=== PATIENT | female | born 1945 | race Caucasian/White ===

== ENCOUNTER 2019-09-18 08:12 | Inpatient (IN) | payer MEDICARE ==
[~2019-09-18] VITALS: Ht 152.4 cm; Wt 85.3 kg
[~2019-09-18 08:12] MED LIST: AMLO2.5T5 PO; FERR325T14 PO; LISI-334 PO; MELO15TA6 PO; METO100T7 PO; METO50TA6 PO; NAPR-677 PO; OXYC5TAB88 PO; WARF-78 PO
[2019-09-18] MEDS ORDERED: IV NORMAL SALINE 1000ML BAG 1,000 ML IV SCH (08:43)
[2019-09-18] MEDS ORDERED: fentaNYL PF VIAL 100 MCG/2 ML VIAL IV PRN (08:45)
[2019-09-18] MEDS ORDERED: ONDANSETRON PF 4 MG/2 ML VIAL. IV ONE ×2 (08:45→12:30)
--- NOTE | 2019-09-18 08:47 | PHYS DOC ---
Past Medical History Past Medical History: Hypertension Past Surgical History: Appendectomy, Knee Replacement Additional Past Surgical Histo: R knee replacement Alcohol Use: None Drug Use: None Adult General Chief Complaint Chief Complaint: ABDOMINAL PAIN HPI HPI Patient is a 74-year-old female who presents with complaint of upper abdominal pain that started last night. Patient states that she has had a few episodes of nausea with vomiting. She states the vomitus has been brown in color. She states that her last normal bowel movement was yesterday and states that she has been passing some gas during her pain. She rates the pain at an 8 out of 10. She states that the pain is worsened with movement and with palpation. She denies any diarrhea. She also denies any fever.[] Review of Systems Review of Systems Constitutional: Denies fever or chills [] Respiratory: Denies cough or shortness of breath [] Cardiovascular: No additional information not addressed in HPI [] GI: Complains of abdominal pain with nausea and vomiting. Denies diarrhea [] Integument: Denies rash or skin lesions [] Neurologic: Denies headache, focal weakness or sensory changes [] All other systems were reviewed and found to be within normal limits, except as documented in this note. Current Medications Current Medications Current Medications Medications (Trade) Dose Ordered Sig/Patricio Start Time Stop Time Status Last Admin Dose Admin Fentanyl Citrate (Fentanyl 2ml Vial) 25 mcg PRN Q15MIN PRN 09/18/19 08:45 09/19/19 08:44 09/18/19 09:06 25 MCG Ondansetron HCl (Zofran) 4 mg 1X ONCE 09/18/19 12:30 09/18/19 12:35 DC 09/18/19 12:34 4 MG Sodium Chloride 1,000 ml @ 1,000 mls/hr Q1H 09/18/19 08:43 09/18/19 09:42 DC 09/18/19 09:05 1,000 MLS/HR Allergies Allergies Allergies Coded Allergies Type Severity Reaction Last Updated Verified nickel Allergy Intermediate REDNESS AND SWELLING, METAL 12/15/14 Yes acetaminophen Adverse Reaction Intermediate NAUSEA AND VOMITING 12/15/14 Yes hydrocodone Adverse Reaction Intermediate NAUSEA AND VOMITING 12/15/14 Yes Physical Exam Physical Exam Constitutional: Well developed, well nourished, no acute distress, non-toxic appearance. [] HENT: Normocephalic, atraumatic, bilateral external ears normal, oropharynx moist, no oral exudates, nose normal. [] Eyes: PERRLA, EOMI, conjunctiva normal, no discharge. [] Neck: Normal range of motion, no tenderness, supple, no stridor. [] Cardiovascular: Regular rate and rhythm[] Lungs & Thorax: Bilateral breath sounds clear to auscultation [] Abdomen: Bowel sounds normal, soft, with moderate upper abdominal tenderness. [] Skin: Warm, dry, no erythema, no rash. [] Extremities: No tenderness, no cyanosis, no clubbing, ROM intact, no edema. [] Neurologic: Alert and oriented X 3, no focal deficits noted. [] Current Patient Data Vital Signs Vital Signs Date Time Temp Pulse Resp B/P (MAP) Pulse Ox O2 Delivery O2 Flow Rate FiO2 09/18/19 08:34 98.6 102 18 129/60 (83) 96 Room Air 98.6 Lab Values Laboratory Tests Test 09/18/19 08:29 09/18/19 09:20 Urine Collection Type Unknown Urine Color Yellow Urine Clarity Clear Urine pH 5.0 Urine Specific [place] 1.020 Urine Protein Trace mg/dL (NEG-TRACE) Urine Glucose (UA) 100 mg/dL (NEG) Urine Ketones (Stick) Trace mg/dL (NEG) Urine Blood Trace (NEG) Urine Nitrite Negative (NEG) Urine Bilirubin Negative (NEG) Urine Urobilinogen Dipstick 0.2 mg/dL (0.2 mg/dL) Urine Leukocyte Esterase Trace (NEG) Urine RBC 0 /HPF (0-2) Urine WBC 1-4 /HPF (0-4) Urine Squamous Epithelial Cells Few /LPF Urine Amorphous Sediment Present /HPF Urine Bacteria 0 /HPF (0-FEW) Urine Hyaline Casts Few /HPF Urine Mucus Mod /LPF White Blood Count 12.0 x10^3/uL (4.0-11.0) H Red Blood Count 4.19 x10^6/uL (3.50-5.40) Hemoglobin 12.4 g/dL (12.0-15.5) Hematocrit 37.8 % (36.0-47.0) Mean Corpuscular Volume 90 fL (79-100) Mean Corpuscular Hemoglobin 30 pg (25-35) Mean Corpuscular Hemoglobin Concent 33 g/dL (31-37) Red Cell Distribution Width 12.9 % (11.5-14.5) Platelet Count 452 x10^3/uL (140-400) H Neutrophils (%) (Auto) 90 % (31-73) H Lymphocytes (%) (Auto) 5 % (24-48) L Monocytes (%) (Auto) 4 % (0-9) Eosinophils (%) (Auto) 0 % (0-3) Basophils (%) (Auto) 0 % (0-3) Neutrophils # (Auto) 10.8 x10^3/uL (1.8-7.7) H Lymphocytes # (Auto) 0.6 x10^3/uL (1.0-4.8) L Monocytes # (Auto) 0.5 x10^3/uL (0.0-1.1) Eosinophils # (Auto) 0.0 x10^3/uL (0.0-0.7) Basophils # (Auto) 0.0 x10^3/uL (0.0-0.2) Segmented Neutrophils % 90 % (35-66) H Band Neutrophils % 1 % (0-9) Lymphocytes % 6 % (24-48) L Monocytes % 3 % (0-10) Platelet Estimate Adequate (ADEQUATE) Sodium Level 147 mmol/L (136-145) H Potassium Level 4.5 mmol/L (3.5-5.1) Chloride Level 107 mmol/L (98-107) Carbon Dioxide Level 31 mmol/L (21-32) Anion Gap 9 (6-14) Blood Urea Nitrogen 47 mg/dL (7-20) H Creatinine 1.6 mg/dL (0.6-1.0) H Estimated GFR (Cockcroft-Gault) 31.6 BUN/Creatinine Ratio 29 (6-20) H Glucose Level 180 mg/dL (70-99) H Calcium Level 9.4 mg/dL (8.5-10.1) Total Bilirubin 1.0 mg/dL (0.2-1.0) Aspartate Amino Transferase (AST) 656 U/L (15-37) H Alanine Aminotransferase (ALT) 323 U/L (14-59) H Alkaline Phosphatase 209 U/L (46-116) H Troponin I Quantitative < 0.017 ng/mL (0.000-0.055) Total Protein 4.5 g/dL (6.4-8.2) L Albumin 3.3 g/dL (3.4-5.0) L Albumin/Globulin Ratio 2.8 (1.0-1.7) H Lipase 473 U/L (73-393) H Laboratory Tests 09/18/19 09:20 Laboratory Tests 09/18/19 09:20 EKG EKG [] Radiology/Procedures Radiology/Procedures [] Impressions: PROCEDURE: CT ABDOMEN PELVIS WO CONTRAST CT ABDOMEN PELVIS WO CONTRAST INDICATION: Abdominal pain EXAM: Noncontrast CT of the abdomen and pelvis. Coronal and sagittal reformatted images were performed. PQRS compliance statement: One or more of the following individualized dose reduction techniques were utilized for this examination: 1. Automated exposure control 2. Adjustment of the mA and/or kV according to patient size 3. Use of iterative reconstruction technique COMPARISON: None FINDINGS: No free air or fluid collection. Mild nonspecific central mesenteric haziness. Lower chest: The visualized lower lungs are aerated. No pleural or pericardial effusion. ABDOMEN: Liver: The noncontrast liver is homogeneous in attenuation. Gallbladder and biliary: Normal gallbladder without radiopaque stone. Normal caliber bile ducts. Spleen: Normal spleen. Pancreas: The noncontrast pancreas is homogeneous in attenuation without peripancreatic inflammatory changes. Adrenal glands: Normal adrenal glands. Kidneys and ureters: Nonobstructive left renal calculus measuring 4 mm. No hydronephrosis GI tract: Moderate-sized hiatal hernia. Normal caliber small bowel and colon. Mild colonic diverticulosis. Normal appendix. Vascular structures: Mild aortoiliac atherosclerotic disease. Lymph nodes: No lymphadenopathy in the abdomen or pelvis. PELVIS: Genitourinary system: Normal bladder. Uterus is present. SKELETAL STRUCTURES AND SOFT TISSUES: Multilevel degenerative changes of the spine. Right convex lumbar curvature IMPRESSION: 1. No acute abdominal process. 2. Nonobstructive left renal calculus measuring 4 mm. 3. Colonic diverticulosis without evidence of acute diverticulitis. 4. Moderate-sized hiatal hernia. Electronically signed by: Loren Harris MD (09/18/2019 10:44 AM) [facility] DICTATED and SIGNED BY: LOREN HARRIS MD DATE: 09/18/19 1044 Course & Med Decision Making Course & Med Decision Making Pertinent Labs and Imaging studies reviewed. (See chart for details) [] Dragon Disclaimer Dragon Disclaimer This electronic medical record was generated, in whole or in part, using a voice recognition dictation system. Departure Departure Impression: Primary Impression: Acute hepatitis Additional Impressions: Acute kidney injury Dehydration Disposition: ADMITTED INPATIENT Admitting Physician: LIZET (Dr. Tovar) Condition: IMPROVED Referrals: JORDYN JONES Jr, MD (PCP) Problem Qualifiers DONNELL GONZALES Jr. DO Sep 18, 2019 08:46
[2019-09-18 09:41] LABS: BASO % 0 % (0-3); EOS % 0 % (0-3); HEMATOCRIT 37.8 % (36.0-47.0); HEMOGLOBIN 12.4 g/dL (12.0-15.5); LYMPH # 0.6 x10^3/uL (1.0-4.8); LYMPH % 5 % (24-48); MEAN CORPUSCULAR HEMOGLOBIN 30 pg (25-35); MEAN CORPUSCULAR HGB CONC 33 g/dL (31-37); MEAN CORPUSCULAR VOLUME 90 fL (79-100); MONO # 0.5 x10^3/uL (0.0-1.1); MONO % 4 % (0-9); NEUT # 10.8 x10^3/uL (1.8-7.7); NEUT % 90 % (31-73); PLATELET COUNT 452 x10^3/uL (140-400); RED BLOOD COUNT 4.19 x10^6/uL (3.50-5.40); RED CELL DISTRIBUTION WIDTH 12.9 % (11.5-14.5)
[2019-09-18 09:48] LABS: BILIRUBIN,URINE NEGATIVE (NEG); CLARITY,URINE CLEAR; COLOR,URINE YELLOW
[2019-09-18 09:49] LABS: AMORPHOUS SEDIMENT,UR PRESENT /HPF; BACTERIA,URINE 0 /HPF (0-FEW); HYALINE CASTS, URINE FEW /HPF; NITRITE,URINE NEGATIVE (NEG); PROTEIN,URINE TRACE mg/dL (NEG-TRACE); RBC,URINE 0 /HPF (0-2); SQUAMOUS EPITHELIAL CELL,UR FEW /LPF; UROBILINOGEN,URINE 0.2 mg/dL (0.2 mg/dL)
[2019-09-18 09:50] LABS: CALCIUM 9.4 mg/dL (8.5-10.1); CREATININE 1.6 mg/dL (0.6-1.0); GFR 31.6; POTASSIUM 4.5 mmol/L (3.5-5.1)
[2019-09-18 09:54] LABS: ALBUMIN 3.3 g/dL (3.4-5.0); ALBUMIN/GLOBULIN RATIO 2.8 (1.0-1.7); TOTAL PROTEIN 4.5 g/dL (6.4-8.2)
--- NOTE | 2019-09-18 10:48 | RAD ---
CT ABDOMEN PELVIS WO CONTRAST INDICATION: Abdominal pain EXAM: Noncontrast CT of the abdomen and pelvis. Coronal and sagittal reformatted images were performed. PQRS compliance statement: One or more of the following individualized dose reduction techniques were utilized for this examination: 1. Automated exposure control 2. Adjustment of the mA and/or kV according to patient size 3. Use of iterative reconstruction technique COMPARISON: None FINDINGS: No free air or fluid collection. Mild nonspecific central mesenteric haziness. Lower chest: The visualized lower lungs are aerated. No pleural or pericardial effusion. ABDOMEN: Liver: The noncontrast liver is homogeneous in attenuation. Gallbladder and biliary: Normal gallbladder without radiopaque stone. Normal caliber bile ducts. Spleen: Normal spleen. Pancreas: The noncontrast pancreas is homogeneous in attenuation without peripancreatic inflammatory changes. Adrenal glands: Normal adrenal glands. Kidneys and ureters: Nonobstructive left renal calculus measuring 4 mm. No hydronephrosis GI tract: Moderate-sized hiatal hernia. Normal caliber small bowel and colon. Mild colonic diverticulosis. Normal appendix. Vascular structures: Mild aortoiliac atherosclerotic disease. Lymph nodes: No lymphadenopathy in the abdomen or pelvis. PELVIS: Genitourinary system: Normal bladder. Uterus is present. SKELETAL STRUCTURES AND SOFT TISSUES: Multilevel degenerative changes of the spine. Right convex lumbar curvature IMPRESSION: 1. No acute abdominal process. 2. Nonobstructive left renal calculus measuring 4 mm. 3. Colonic diverticulosis without evidence of acute diverticulitis. 4. Moderate-sized hiatal hernia. Electronically signed by: Juan Harris MD (09/18/2019 10:44 AM) [facility]
[2019-09-18 11:35] LABS: % BANDS 1 % (0-9); % LYMPHS 6 % (24-48); % MONOS 3 % (0-10); % SEGS 90 % (35-66); PLT ESTIMATE ADEQUATE (ADEQUATE)
--- NOTE | 2019-09-18 11:49 | PDOC1 ---
History and Physical Date of Admission Date of Admission DATE: 09/18/19 TIME: 11:49 Identification/Chief Complaint Chief Complaint Abdominal pain Source Source: Patient History of Present Illness History of Present Illness Ms Zapata is a 74-year-old female with PMHx HTN who presents with complaint of upper mid-epigastric abdominal pain that started last night. Patient states that she has had a few episodes of nausea with vomiting. She had eaten a cheeseburger at a local casino prior to this episode and has been having this issue with abdominal pain for the past 5 days which has progressed and now is constant. 2 weeks ago she had similar pain and nausea, relegated to her left upper quadrant that she compared to morning sickness. She was seen in urgent care at that time and given a PPI and antiemetic and improved until 5 days ago. No recent travel or sick contacts, no well water exposure. No diarrhea. She states that her last normal bowel movement was yesterday and states that she has been passing some gas during her pain. She rates the pain at an 8 out of 10. She states that the pain is worsened with movement and with palpation. She also denies any fever. In ED found with WBC of 12, BUN 47, Cr 1.6, Lipase 473, AST 656, ALT 323. Bilirubin 1. CT abdomen pelvis performed without contrast showing non- obstructive left renal calculus, diverticulosis, otherwise no acute process. She is UTD on colonoscopy screening. Admitted for further workup and treatment. Past Medical History Cardiovascular: HTN Past Surgical History Past Surgical History: Appendectomy, Total knee replacement (L) Family History Family History: High Cholestrol, Hypertension Social History Smoke: No ALCOHOL: none Drugs: None Current Problem List Problem List Problems Medical Problems: (1) Acute hepatitis Status: Acute Current Medications Current Medications Current Medications Fentanyl Citrate (Fentanyl 2ml Vial) 25 mcg PRN Q15MIN PRN IV PAIN GREATER THAN 3/10 Last administered on 09/18/19at 09:06; Start 09/18/19 at 08:45; Stop 09/19/19 at 08:44 Sodium Chloride 1,000 ml @ 1,000 mls/hr Q1H IV Last administered on 09/18/19at 09:05; Start 09/18/19 at 08:43; Stop 09/18/19 at 09:42; Status DC Ondansetron HCl (Zofran) 4 mg 1X ONCE IV Last administered on 09/18/19at 09:06; Start 09/18/19 at 08:45; Stop 09/18/19 at 08:46; Status DC Active Scripts Active Reported Roxicodone (Oxycodone HCl) 5 Mg Tablet 5 Mg PO PRN Q4HRS PRN Last dose given: 1:20 p.m. Next dose due: 5:20 if needed for pain Mobic (Meloxicam) 15 Mg Tablet 15 Mg PO 1X Last dose given: 9:00 a.m. (celebrex) Next dose due: 12-19-14 Coumadin (Warfarin Sodium) 5 Mg Tablet 5 Mg PO 1X Last dose given: 1:20 p.m. Next dose due: tomorrow evening 12-19-14 Pharmacy will monitor coumadin dosing Amlodipine Besylate 2.5 Mg Tablet 2.5 Mg PO DAILY Last dose given: 9:00 a.m. Next dose due: 12-19-14 9:00 a.m. Lisinopril 20 Mg Tablet 40 Mg PO DAILY06 Last dose given: 9:00 a.m. Next dose due: 12-19-14 Metoprolol Tartrate 50 Mg Tablet 50 Mg PO BID Last dose given: 9:00 a.m. Next dose due: tonight Allergies Allergies: Coded Allergies: nickel (Verified Allergy, Intermediate, REDNESS AND SWELLING, METAL, 12/15/14) acetaminophen (Verified Adverse Reaction, Intermediate, NAUSEA AND VOMITING, 12/15/14) hydrocodone (Verified Adverse Reaction, Mild, NAUSEA AND VOMITING, 09/18/19) ROS General: YES: Fatigue, Malaise, Appetite; No: Chills, Night Sweats, Other PSYCHOLOGICAL ROS: No: Anxiety, Behavioral Disorder, Concentration difficultie, Decreased libido, Depression, Disorientation, Hallucinations, Hostility, Irritablity, Memory difficulties, Mood Swings, Obsessive thoughts, Physical abuse, Sexual abuse, Sleep disturbances, Suicidal ideation, Other Eyes: No Blurry vision, No Decreased vision, No Double vision, No Dry eyes, No Excessive tearing, No Eye Pain, No Itchy Eyes, No Loss of vision, No Photophobia, No Scotomata, No Uses contacts, No Uses glasses, No Other HEENT: No: Heacaches, Visual Changes, Hearing change, Nasal congestion, Nasal discharge, Oral lesions, Sinus pain, Sore Throat, Epistaxis, Sneezing, Snoring, Tinnitus, Vertigo, Vocal changes, Other ALLERGY AND IMMUNOLOGY: No: Hives, Insect Bite Sensitivity, Itchy/Watery Eyes, Nasal Congestion, Post Nasal Drip, Seasonal Allergies, Other Hematological and Lymphatic: No: Bleeding Problems, Blood Clots, Blood Transfusions, Brusing, Night Sweats, Pallor, Swollen Lymph Nodes, Other ENDOCRINE: No: Breast Changes, Galactorrhea, Hair Pattern Changes, Hot Flashes, Malaise/lethargy, Mood Swings, Palpitations, Polydipsia/polyuria, Skin Changes, Temperature Intolerance, Unexpected Weight Changes, Other Breast: No New/Changing Breast Lumps, No Nipple changes, No Nipple discharge, No Other Respiratory: No: Cough, Hemoptysis, Orthopnea, Pleuritic Pain, Shortness of breath, SOB with excertion, Sputum Changes, Stridor, Tachypnea, Wheezing, Other Cardiovascular: No Chest Pain, No Palpitations, No Orthopnea, No Paroxysmal Noc. Dyspnea, No Edema, No Lt Headedness, No Other Gastrointestinal: Yes Nausea, Yes Vomiting, Yes Abdominal Pain; No Diarrhea, No Constipation, No Melena, No Hematochezia, No Other Genitourinary: No Dysuria, No Frequency, No Incontinence, No Hematuria, No Retention, No Discharge, No Urgency, No Pain, No Flank Pain, No Other, No , No , No , No , No , No , No Musculoskeletal: No Gait Disturbance, No Joint Pain, No Joint Stiffness, No Joint Swelling, No Muscle Pain, No Muscular Weakness, No Pain In:, No Swelling In:, No Other Neurological: No Behavorial Changes, No Bowel/Bladder ControlChng, No Confusion, No Dizziness, No Gait Disturbance, No Headaches, No Impaired Coord/balance, No Memory Loss, No Numbness/Tingling, No Seizures, No Speech Problems, No Tremors, No Visual Changes, No Weakness, No Other Skin: No Dry Skin, No Eczema, No Hair Changes, No Lumps, No Mole Changes, No Mottling, No Nail Changes, No Pruritus, No Rash, No Skin Lesion Changes, No Other, No Acne Physical Exam General: Alert, Oriented X3, Cooperative, mild distress HEENT: Atraumatic, PERRLA, EOMI, Mucous membr. moist/pink Lungs: Clear to auscultation, Normal air movement Heart: S1S2, RRR, no thrills, no rubs Abdomen: Normal bowel sounds, Soft, No hepatosplenomegaly, No masses, Other (Epigastric and RUQ tenderness) Rectal Exam: not examined Extremities: No clubbing, No cyanosis, No edema, Normal pulses, No tenderness/swelling Skin: No rashes, No breakdown, No significant lesion Neuro: Normal gait, Normal speech, Strength at 5/5 X4 ext, Normal tone, Sensation intact, Cranial nerves 3-12 NL, Reflexes 2+ Psych/Mental Status: Mental status NL, Mood NL Vitals Vitals Vital Signs Date Time Temp Pulse Resp B/P (MAP) Pulse Ox O2 Delivery O2 Flow Rate FiO2 09/18/19 08:34 98.6 102 18 129/60 (83) 96 Room Air 98.6 Labs Labs Laboratory Tests Test 09/18/19 08:29 09/18/19 09:20 Urine Collection Type Unknown Urine Color Yellow Urine Clarity Clear Urine pH 5.0 Urine Specific [place] 1.020 Urine Protein Trace mg/dL (NEG-TRACE) Urine Glucose (UA) 100 mg/dL (NEG) Urine Ketones (Stick) Trace mg/dL (NEG) Urine Blood Trace (NEG) Urine Nitrite Negative (NEG) Urine Bilirubin Negative (NEG) Urine Urobilinogen Dipstick 0.2 mg/dL (0.2 mg/dL) Urine Leukocyte Esterase Trace (NEG) Urine RBC 0 /HPF (0-2) Urine WBC 1-4 /HPF (0-4) Urine Squamous Epithelial Cells Few /LPF Urine Amorphous Sediment Present /HPF Urine Bacteria 0 /HPF (0-FEW) Urine Hyaline Casts Few /HPF Urine Mucus Mod /LPF White Blood Count 12.0 x10^3/uL (4.0-11.0) Red Blood Count 4.19 x10^6/uL (3.50-5.40) Hemoglobin 12.4 g/dL (12.0-15.5) Hematocrit 37.8 % (36.0-47.0) Mean Corpuscular Volume 90 fL (79-100) Mean Corpuscular Hemoglobin 30 pg (25-35) Mean Corpuscular Hemoglobin Concent 33 g/dL (31-37) Red Cell Distribution Width 12.9 % (11.5-14.5) Platelet Count 452 x10^3/uL (140-400) Neutrophils (%) (Auto) 90 % (31-73) Lymphocytes (%) (Auto) 5 % (24-48) Monocytes (%) (Auto) 4 % (0-9) Eosinophils (%) (Auto) 0 % (0-3) Basophils (%) (Auto) 0 % (0-3) Neutrophils # (Auto) 10.8 x10^3/uL (1.8-7.7) Lymphocytes # (Auto) 0.6 x10^3/uL (1.0-4.8) Monocytes # (Auto) 0.5 x10^3/uL (0.0-1.1) Eosinophils # (Auto) 0.0 x10^3/uL (0.0-0.7) Basophils # (Auto) 0.0 x10^3/uL (0.0-0.2) Segmented Neutrophils % 90 % (35-66) Band Neutrophils % 1 % (0-9) Lymphocytes % 6 % (24-48) Monocytes % 3 % (0-10) Platelet Estimate Adequate (ADEQUATE) Sodium Level 147 mmol/L (136-145) Potassium Level 4.5 mmol/L (3.5-5.1) Chloride Level 107 mmol/L (98-107) Carbon Dioxide Level 31 mmol/L (21-32) Anion Gap 9 (6-14) Blood Urea Nitrogen 47 mg/dL (7-20) Creatinine 1.6 mg/dL (0.6-1.0) Estimated GFR (Cockcroft-Gault) 31.6 BUN/Creatinine Ratio 29 (6-20) Glucose Level 180 mg/dL (70-99) Calcium Level 9.4 mg/dL (8.5-10.1) Total Bilirubin 1.0 mg/dL (0.2-1.0) Aspartate Amino Transf (AST/SGOT) 656 U/L (15-37) Alanine Aminotransferase (ALT/SGPT) 323 U/L (14-59) Alkaline Phosphatase 209 U/L (46-116) Troponin I Quantitative < 0.017 ng/mL (0.000-0.055) Total Protein 4.5 g/dL (6.4-8.2) Albumin 3.3 g/dL (3.4-5.0) Albumin/Globulin Ratio 2.8 (1.0-1.7) Lipase 473 U/L (73-393) Laboratory Tests Test 09/18/19 08:29 09/18/19 09:20 Urine Collection Type Unknown Urine Color Yellow Urine Clarity Clear Urine pH 5.0 Urine Specific [place] 1.020 Urine Protein Trace mg/dL (NEG-TRACE) Urine Glucose (UA) 100 mg/dL (NEG) Urine Ketones (Stick) Trace mg/dL (NEG) Urine Blood Trace (NEG) Urine Nitrite Negative (NEG) Urine Bilirubin Negative (NEG) Urine Urobilinogen Dipstick 0.2 mg/dL (0.2 mg/dL) Urine Leukocyte Esterase Trace (NEG) Urine RBC 0 /HPF (0-2) Urine WBC 1-4 /HPF (0-4) Urine Squamous Epithelial Cells Few /LPF Urine Amorphous Sediment Present /HPF Urine Bacteria 0 /HPF (0-FEW) Urine Hyaline Casts Few /HPF Urine Mucus Mod /LPF White Blood Count 12.0 x10^3/uL (4.0-11.0) Red Blood Count 4.19 x10^6/uL (3.50-5.40) Hemoglobin 12.4 g/dL (12.0-15.5) Hematocrit 37.8 % (36.0-47.0) Mean Corpuscular Volume 90 fL (79-100) Mean Corpuscular Hemoglobin 30 pg (25-35) Mean Corpuscular Hemoglobin Concent 33 g/dL (31-37) Red Cell Distribution Width 12.9 % (11.5-14.5) Platelet Count 452 x10^3/uL (140-400) Neutrophils (%) (Auto) 90 % (31-73) Lymphocytes (%) (Auto) 5 % (24-48) Monocytes (%) (Auto) 4 % (0-9) Eosinophils (%) (Auto) 0 % (0-3) Basophils (%) (Auto) 0 % (0-3) Neutrophils # (Auto) 10.8 x10^3/uL (1.8-7.7) Lymphocytes # (Auto) 0.6 x10^3/uL (1.0-4.8) Monocytes # (Auto) 0.5 x10^3/uL (0.0-1.1) Eosinophils # (Auto) 0.0 x10^3/uL (0.0-0.7) Basophils # (Auto) 0.0 x10^3/uL (0.0-0.2) Segmented Neutrophils % 90 % (35-66) Band Neutrophils % 1 % (0-9) Lymphocytes % 6 % (24-48) Monocytes % 3 % (0-10) Platelet Estimate Adequate (ADEQUATE) Sodium Level 147 mmol/L (136-145) Potassium Level 4.5 mmol/L (3.5-5.1) Chloride Level 107 mmol/L (98-107) Carbon Dioxide Level 31 mmol/L (21-32) Anion Gap 9 (6-14) Blood Urea Nitrogen 47 mg/dL (7-20) Creatinine 1.6 mg/dL (0.6-1.0) Estimated GFR (Cockcroft-Gault) 31.6 BUN/Creatinine Ratio 29 (6-20) Glucose Level 180 mg/dL (70-99) Calcium Level 9.4 mg/dL (8.5-10.1) Total Bilirubin 1.0 mg/dL (0.2-1.0) Aspartate Amino Transf (AST/SGOT) 656 U/L (15-37) Alanine Aminotransferase (ALT/SGPT) 323 U/L (14-59) Alkaline Phosphatase 209 U/L (46-116) Troponin I Quantitative < 0.017 ng/mL (0.000-0.055) Total Protein 4.5 g/dL (6.4-8.2) Albumin 3.3 g/dL (3.4-5.0) Albumin/Globulin Ratio 2.8 (1.0-1.7) Lipase 473 U/L (73-393) Images Images CT abdomen/pelvis 1. No acute abdominal process. 2. Nonobstructive left renal calculus measuring 4 mm. 3. Colonic diverticulosis without evidence of acute diverticulitis. 4. Moderate-sized hiatal hernia. VTE Prophylaxis Ordered VTE Prophylaxis Devices: Yes VTE Pharmacological Prophylaxi: Yes Assessment/Plan Assessment/Plan A/P: Intractable abdominal pain - non-remitting, has acute hepatitis by labs. Not a significant alcohol drinking, no elevation in bilirubin, but alkaline phos is elevated. Will obtain RUQ to assess gallbladder and CBD Nausea and vomiting - possibly gastroenteritis, definitely with a mild pancreatitis and hepatitis of uncertain etiology. May be related to gallbladder, will give anti-emetics, pain control. Bowel rest. GI consult in AM NADIR - vasomotor nephropathy likely 2/2 vomiting and poor recent PO intake, will hydrate Hyperglycemia - likely reactive, will trend Acute transaminitis - as above, will check TSH, GABE, ASMA, consult GI. NPO, trend LFTs. RUQ imaging via US Leukocytosis - with tachycardia, she has SIRS, this is likely reactive given her recent vomiting, possibly also having a viral gastroenteritis, will trend. No indication for antibiotics at this point. Non-obstructive left nephrolithiasis - unlikely culprit given her current location of pain FEN - NPO PPX - Lovenox 30 mg FULL CODE Dispo - inpatient for N/V, likely 2 midnights. KSENIA CHU MD Sep 18, 2019 11:49
[2019-09-18] MEDS ORDERED: ONDANSETRON PF 4 MG/2 ML VIAL. IV PRN (13:00)
--- NOTE | 2019-09-18 14:00 | NUR ---
pt admitted to room 550. oriented to room and call light. sister at bedside.
[2019-09-18 15:00] VITALS: BP 157/70
[2019-09-18] MEDS: IV NORMAL SALINE 1000ML BAG 1,000 ML IV SCH ×2 (15:47→23:56)
[2019-09-18] MEDS: MORPHINE SULFATE 2 MG/ML VIAL. IV PRN ×2 (15:48→22:53)
[2019-09-18] MEDS ORDERED: HYDR12.58 PO (16:01)
[2019-09-18] MEDS ORDERED: ENOXAPARIN 30 MG/0.3 ML SYRINGE. SQ SCH (16:15)
[2019-09-18 19:00] VITALS: BP 157/76
--- NOTE | 2019-09-18 21:10 | RAD ---
Clinical History: Right upper quadrant pain Technique: Sonographic examination of the right upper quadrant of the abdomen was performed and multiple static images were obtained. Comparison: none Findings: The common bile duct is dilated to 1.2 cm and there are stones in the common bile duct. The intrahepatic biliary tree is dilated. The pancreas is not well seen due to overlying bowel gas. The gallbladder is seen with multiple stones in the gallbladder is distended however there is no wall thickening or surrounding fluid. The right kidney is seen without hydronephrosis and measures 9.2 cm in length. Impression: 1. Choledocholithiasis. Recommend ERCP. 2. Cholelithiasis without wall thickening or surrounding fluid or tenderness to suggest acute cholecystitis. Electronically signed by: Tej Mensah III, MD (09/18/2019 9:07 PM) [id number]
[2019-09-18] MEDS: METOPROLOL TART IMMED RELEASE 50 MG TABLET. PO SCH (22:52)
[2019-09-18] MEDS: ONDANSETRON PF 4 MG/2 ML VIAL. IV PRN (22:53)
[2019-09-18 23:00] VITALS: BP 155/75
[2019-09-19 03:00] VITALS: BP 174/77
[2019-09-19] MEDS: MORPHINE SULFATE 2 MG/ML VIAL. IV PRN ×2 (03:23→09:46)
[2019-09-19 04:59] LABS: BASO # 0.1 x10^3/uL (0.0-0.2); BASO % 1 % (0-3); EOS # 0.2 x10^3/uL (0.0-0.7); EOS % 1 % (0-3); HEMATOCRIT 38.2 % (36.0-47.0); HEMOGLOBIN 12.5 g/dL (12.0-15.5); LYMPH # 0.8 x10^3/uL (1.0-4.8); LYMPH % 7 % (24-48); MEAN CORPUSCULAR HEMOGLOBIN 30 pg (25-35); MEAN CORPUSCULAR HGB CONC 33 g/dL (31-37); MEAN CORPUSCULAR VOLUME 92 fL (79-100); MONO # 0.3 x10^3/uL (0.0-1.1); MONO % 2 % (0-9); NEUT # 10.8 x10^3/uL (1.8-7.7); NEUT % 90 % (31-73); PLATELET COUNT 377 x10^3/uL (140-400); RED BLOOD COUNT 4.17 x10^6/uL (3.50-5.40); RED CELL DISTRIBUTION WIDTH 13.2 % (11.5-14.5)
[2019-09-19] MEDS: ONDANSETRON PF 4 MG/2 ML VIAL. IV PRN (05:04)
[2019-09-19 05:31] LABS: ALBUMIN 2.9 g/dL (3.4-5.0); ALBUMIN/GLOBULIN RATIO 0.7 (1.0-1.7); CALCIUM 9.1 mg/dL (8.5-10.1); CREATININE 1.3 mg/dL (0.6-1.0); GFR 40.2; TOTAL PROTEIN 7.1 g/dL (6.4-8.2)
[2019-09-19 07:00] VITALS: BP 116/66
--- NOTE | 2019-09-19 07:19 | PDOC ---
PROGRESS NOTES Chief Complaint Chief Complaint A/P: Choledocholithiasis - with Intractable abdominal pain - non-remitting, has acute hepatitis by labs. Not a significant alcohol drinking, no elevation in bilirubi n, but alkaline phos is elevated. GI to see Nausea and vomiting - possibly gastroenteritis, definitely with a mild pancreatitis and hepatitis 2/2 choledocholithiasis. Will give anti-emetics, pain control. Bowel rest. GI consult to consider ERCP NADIR - vasomotor nephropathy likely 2/2 vomiting and poor recent PO intake, will hydrate Hyperglycemia - likely reactive, will trend Acute transaminitis - as above, consult GI. NPO, trend LFTs. RUQ imaging via US confirms choledocholithiasis Leukocytosis - with tachycardia, she has SIRS, this is likely reactive given her recent vomiting, possibly also having a viral gastroenteritis, will trend. Will initiate antibiotics when/if ERCP planned Non-obstructive left nephrolithiasis - unlikely culprit given her current locat ion of pain FEN - NPO PPX - Lovenox 30 mg FULL CODE Dispo - inpatient for N/V, likely 2 midnights. History of Present Illness History of Present Illness Ms Zapata is a 74-year-old female with PMHx HTN who presents with complaint of upper mid-epigastric abdominal pain that started last night. Patient states that she has had a few episodes of nausea with vomiting. She had eaten a cheeseburger at a local casino prior to this episode and has been having this issue with abdominal pain for the past 5 days which has progressed and now is constant. 2 weeks ago she had similar pain and nausea, relegated to her left upper quadrant that she compared to morning sickness. She was seen in urgent care at that time and given a PPI and antiemetic and improved until 5 days ago. No recent travel or sick contacts, no well water exposure. No diarrhea. She states that her last normal bowel movement was yesterday and states that she has been passing some gas during her pain. She rates the pain at an 8 out of 10. She states that the pain is worsened with movement and with palpation. She also denies any fever. In ED found with WBC of 12, BUN 47, Cr 1.6, Lipase 473, AST 656, ALT 323. Bilirubin 1. CT abdomen pelvis performed without contrast showing non- obstructive left renal calculus, diverticulosis, otherwise no acute process. She is UTD on colonoscopy screening. RUQ US reveals choledocholithiasis with CBD 1.2cm and multiple stones. LFTs elevating today. A little jaundiced. still with abdominal pain, nausea and vomiting. Plan for ERCP d/w GI today. NPO Vitals Vitals Vital Signs Date Time Temp Pulse Resp B/P (MAP) Pulse Ox O2 Delivery O2 Flow Rate FiO2 09/19/19 03:00 98.0 69 20 174/77 (109) 93 Room Air 98.0 Physical Exam General: Alert, Oriented X3, Cooperative, mild distress Heart: Regular rate, Normal S1, Normal S2 Lungs: Clear Abdomen: Normal bowel sounds, Soft, No hepatosplenomegaly, No masses, Other (Epigastric and RUQ tenderness) Extremities: No clubbing, No cyanosis, No edema, Normal pulses, No tenderness/swelling Skin: No rashes, No breakdown, No significant lesion Labs LABS Laboratory Tests Test 09/18/19 08:29 09/18/19 09:20 09/19/19 04:30 Urine Collection Type Unknown Urine Color Yellow Urine Clarity Clear Urine pH 5.0 Urine Specific [place] 1.020 Urine Protein Trace mg/dL (NEG-TRACE) Urine Glucose (UA) 100 mg/dL (NEG) Urine Ketones (Stick) Trace mg/dL (NEG) Urine Blood Trace (NEG) Urine Nitrite Negative (NEG) Urine Bilirubin Negative (NEG) Urine Urobilinogen Dipstick 0.2 mg/dL (0.2 mg/dL) Urine Leukocyte Esterase Trace (NEG) Urine RBC 0 /HPF (0-2) Urine WBC 1-4 /HPF (0-4) Urine Squamous Epithelial Cells Few /LPF Urine Amorphous Sediment Present /HPF Urine Bacteria 0 /HPF (0-FEW) Urine Hyaline Casts Few /HPF Urine Mucus Mod /LPF White Blood Count 12.0 x10^3/uL (4.0-11.0) 12.0 x10^3/uL (4.0-11.0) Red Blood Count 4.19 x10^6/uL (3.50-5.40) 4.17 x10^6/uL (3.50-5.40) Hemoglobin 12.4 g/dL (12.0-15.5) 12.5 g/dL (12.0-15.5) Hematocrit 37.8 % (36.0-47.0) 38.2 % (36.0-47.0) Mean Corpuscular Volume 90 fL (79-100) 92 fL (79-100) Mean Corpuscular Hemoglobin 30 pg (25-35) 30 pg (25-35) Mean Corpuscular Hemoglobin Concent 33 g/dL (31-37) 33 g/dL (31-37) Red Cell Distribution Width 12.9 % (11.5-14.5) 13.2 % (11.5-14.5) Platelet Count 452 x10^3/uL (140-400) 377 x10^3/uL (140-400) Neutrophils (%) (Auto) 90 % (31-73) 90 % (31-73) Lymphocytes (%) (Auto) 5 % (24-48) 7 % (24-48) Monocytes (%) (Auto) 4 % (0-9) 2 % (0-9) Eosinophils (%) (Auto) 0 % (0-3) 1 % (0-3) Basophils (%) (Auto) 0 % (0-3) 1 % (0-3) Neutrophils # (Auto) 10.8 x10^3/uL (1.8-7.7) 10.8 x10^3/uL (1.8-7.7) Lymphocytes # (Auto) 0.6 x10^3/uL (1.0-4.8) 0.8 x10^3/uL (1.0-4.8) Monocytes # (Auto) 0.5 x10^3/uL (0.0-1.1) 0.3 x10^3/uL (0.0-1.1) Eosinophils # (Auto) 0.0 x10^3/uL (0.0-0.7) 0.2 x10^3/uL (0.0-0.7) Basophils # (Auto) 0.0 x10^3/uL (0.0-0.2) 0.1 x10^3/uL (0.0-0.2) Segmented Neutrophils % 90 % (35-66) Band Neutrophils % 1 % (0-9) Lymphocytes % 6 % (24-48) Monocytes % 3 % (0-10) Platelet Estimate Adequate (ADEQUATE) Sodium Level 147 mmol/L (136-145) 145 mmol/L (136-145) Potassium Level 4.5 mmol/L (3.5-5.1) 4.0 mmol/L (3.5-5.1) Chloride Level 107 mmol/L (98-107) 108 mmol/L (98-107) Carbon Dioxide Level 31 mmol/L (21-32) 29 mmol/L (21-32) Anion Gap 9 (6-14) 8 (6-14) Blood Urea Nitrogen 47 mg/dL (7-20) 28 mg/dL (7-20) Creatinine 1.6 mg/dL (0.6-1.0) 1.3 mg/dL (0.6-1.0) Estimated GFR (Cockcroft-Gault) 31.6 40.2 BUN/Creatinine Ratio 29 (6-20) 22 (6-20) Glucose Level 180 mg/dL (70-99) 132 mg/dL (70-99) Calcium Level 9.4 mg/dL (8.5-10.1) 9.1 mg/dL (8.5-10.1) Ferritin 924 ng/mL (8-252) Total Bilirubin 1.0 mg/dL (0.2-1.0) 3.0 mg/dL (0.2-1.0) Aspartate Amino Transf (AST/SGOT) 656 U/L (15-37) 914 U/L (15-37) Alanine Aminotransferase (ALT/SGPT) 323 U/L (14-59) 701 U/L (14-59) Alkaline Phosphatase 209 U/L (46-116) 298 U/L (46-116) Troponin I Quantitative < 0.017 ng/mL (0.000-0.055) Total Protein 4.5 g/dL (6.4-8.2) 7.1 g/dL (6.4-8.2) Albumin 3.3 g/dL (3.4-5.0) 2.9 g/dL (3.4-5.0) Albumin/Globulin Ratio 2.8 (1.0-1.7) 0.7 (1.0-1.7) Lipase 473 U/L (73-393) 234 U/L (73-393) Thyroid Stimulating Hormone (TSH) 1.208 uIU/mL (0.358-3.74) Hepatitis A IgM Antibody Nonreactive (Nonreactive) Hepatitis B Surface Antigen Nonreactive (Nonreactive) Hepatitis B Core IgM Antibody Nonreactive (Nonreactive) Hepatitis C IgG Antibody Nonreactive (Nonreactive) Assessment and Plan Assessmemt and Plan Problems Medical Problems: (1) Acute hepatitis Status: Acute (2) Acute kidney injury Status: Acute (3) Dehydration Status: Acute Comment Review of Relevant I have reviewed the following items tatianna (where applicable) has been applied. Labs Laboratory Tests Test 09/18/19 08:29 09/18/19 09:20 09/19/19 04:30 Urine Collection Type Unknown Urine Color Yellow Urine Clarity Clear Urine pH 5.0 Urine Specific [place] 1.020 Urine Protein Trace mg/dL (NEG-TRACE) Urine Glucose (UA) 100 mg/dL (NEG) Urine Ketones (Stick) Trace mg/dL (NEG) Urine Blood Trace (NEG) Urine Nitrite Negative (NEG) Urine Bilirubin Negative (NEG) Urine Urobilinogen Dipstick 0.2 mg/dL (0.2 mg/dL) Urine Leukocyte Esterase Trace (NEG) Urine RBC 0 /HPF (0-2) Urine WBC 1-4 /HPF (0-4) Urine Squamous Epithelial Cells Few /LPF Urine Amorphous Sediment Present /HPF Urine Bacteria 0 /HPF (0-FEW) Urine Hyaline Casts Few /HPF Urine Mucus Mod /LPF White Blood Count 12.0 x10^3/uL (4.0-11.0) 12.0 x10^3/uL (4.0-11.0) Red Blood Count 4.19 x10^6/uL (3.50-5.40) 4.17 x10^6/uL (3.50-5.40) Hemoglobin 12.4 g/dL (12.0-15.5) 12.5 g/dL (12.0-15.5) Hematocrit 37.8 % (36.0-47.0) 38.2 % (36.0-47.0) Mean Corpuscular Volume 90 fL (79-100) 92 fL (79-100) Mean Corpuscular Hemoglobin 30 pg (25-35) 30 pg (25-35) Mean Corpuscular Hemoglobin Concent 33 g/dL (31-37) 33 g/dL (31-37) Red Cell Distribution Width 12.9 % (11.5-14.5) 13.2 % (11.5-14.5) Platelet Count 452 x10^3/uL (140-400) 377 x10^3/uL (140-400) Neutrophils (%) (Auto) 90 % (31-73) 90 % (31-73) Lymphocytes (%) (Auto) 5 % (24-48) 7 % (24-48) Monocytes (%) (Auto) 4 % (0-9) 2 % (0-9) Eosinophils (%) (Auto) 0 % (0-3) 1 % (0-3) Basophils (%) (Auto) 0 % (0-3) 1 % (0-3) Neutrophils # (Auto) 10.8 x10^3/uL (1.8-7.7) 10.8 x10^3/uL (1.8-7.7) Lymphocytes # (Auto) 0.6 x10^3/uL (1.0-4.8) 0.8 x10^3/uL (1.0-4.8) Monocytes # (Auto) 0.5 x10^3/uL (0.0-1.1) 0.3 x10^3/uL (0.0-1.1) Eosinophils # (Auto) 0.0 x10^3/uL (0.0-0.7) 0.2 x10^3/uL (0.0-0.7) Basophils # (Auto) 0.0 x10^3/uL (0.0-0.2) 0.1 x10^3/uL (0.0-0.2) Segmented Neutrophils % 90 % (35-66) Band Neutrophils % 1 % (0-9) Lymphocytes % 6 % (24-48) Monocytes % 3 % (0-10) Platelet Estimate Adequate (ADEQUATE) Sodium Level 147 mmol/L (136-145) 145 mmol/L (136-145) Potassium Level 4.5 mmol/L (3.5-5.1) 4.0 mmol/L (3.5-5.1) Chloride Level 107 mmol/L (98-107) 108 mmol/L (98-107) Carbon Dioxide Level 31 mmol/L (21-32) 29 mmol/L (21-32) Anion Gap 9 (6-14) 8 (6-14) Blood Urea Nitrogen 47 mg/dL (7-20) 28 mg/dL (7-20) Creatinine 1.6 mg/dL (0.6-1.0) 1.3 mg/dL (0.6-1.0) Estimated GFR (Cockcroft-Gault) 31.6 40.2 BUN/Creatinine Ratio 29 (6-20) 22 (6-20) Glucose Level 180 mg/dL (70-99) 132 mg/dL (70-99) Calcium Level 9.4 mg/dL (8.5-10.1) 9.1 mg/dL (8.5-10.1) Ferritin 924 ng/mL (8-252) Total Bilirubin 1.0 mg/dL (0.2-1.0) 3.0 mg/dL (0.2-1.0) Aspartate Amino Transf (AST/SGOT) 656 U/L (15-37) 914 U/L (15-37) Alanine Aminotransferase (ALT/SGPT) 323 U/L (14-59) 701 U/L (14-59) Alkaline Phosphatase 209 U/L (46-116) 298 U/L (46-116) Troponin I Quantitative < 0.017 ng/mL (0.000-0.055) Total Protein 4.5 g/dL (6.4-8.2) 7.1 g/dL (6.4-8.2) Albumin 3.3 g/dL (3.4-5.0) 2.9 g/dL (3.4-5.0) Albumin/Globulin Ratio 2.8 (1.0-1.7) 0.7 (1.0-1.7) Lipase 473 U/L (73-393) 234 U/L (73-393) Thyroid Stimulating Hormone (TSH) 1.208 uIU/mL (0.358-3.74) Hepatitis A IgM Antibody Nonreactive (Nonreactive) Hepatitis B Surface Antigen Nonreactive (Nonreactive) Hepatitis B Core IgM Antibody Nonreactive (Nonreactive) Hepatitis C IgG Antibody Nonreactive (Nonreactive) Laboratory Tests Test 09/18/19 08:29 09/18/19 09:20 09/19/19 04:30 Urine Collection Type Unknown Urine Color Yellow Urine Clarity Clear Urine pH 5.0 Urine Specific [place] 1.020 Urine Protein Trace mg/dL (NEG-TRACE) Urine Glucose (UA) 100 mg/dL (NEG) Urine Ketones (Stick) Trace mg/dL (NEG) Urine Blood Trace (NEG) Urine Nitrite Negative (NEG) Urine Bilirubin Negative (NEG) Urine Urobilinogen Dipstick 0.2 mg/dL (0.2 mg/dL) Urine Leukocyte Esterase Trace (NEG) Urine RBC 0 /HPF (0-2) Urine WBC 1-4 /HPF (0-4) Urine Squamous Epithelial Cells Few /LPF Urine Amorphous Sediment Present /HPF Urine Bacteria 0 /HPF (0-FEW) Urine Hyaline Casts Few /HPF Urine Mucus Mod /LPF White Blood Count 12.0 x10^3/uL (4.0-11.0) 12.0 x10^3/uL (4.0-11.0) Red Blood Count 4.19 x10^6/uL (3.50-5.40) 4.17 x10^6/uL (3.50-5.40) Hemoglobin 12.4 g/dL (12.0-15.5) 12.5 g/dL (12.0-15.5) Hematocrit 37.8 % (36.0-47.0) 38.2 % (36.0-47.0) Mean Corpuscular Volume 90 fL (79-100) 92 fL (79-100) Mean Corpuscular Hemoglobin 30 pg (25-35) 30 pg (25-35) Mean Corpuscular Hemoglobin Concent 33 g/dL (31-37) 33 g/dL (31-37) Red Cell Distribution Width 12.9 % (11.5-14.5) 13.2 % (11.5-14.5) Platelet Count 452 x10^3/uL (140-400) 377 x10^3/uL (140-400) Neutrophils (%) (Auto) 90 % (31-73) 90 % (31-73) Lymphocytes (%) (Auto) 5 % (24-48) 7 % (24-48) Monocytes (%) (Auto) 4 % (0-9) 2 % (0-9) Eosinophils (%) (Auto) 0 % (0-3) 1 % (0-3) Basophils (%) (Auto) 0 % (0-3) 1 % (0-3) Neutrophils # (Auto) 10.8 x10^3/uL (1.8-7.7) 10.8 x10^3/uL (1.8-7.7) Lymphocytes # (Auto) 0.6 x10^3/uL (1.0-4.8) 0.8 x10^3/uL (1.0-4.8) Monocytes # (Auto) 0.5 x10^3/uL (0.0-1.1) 0.3 x10^3/uL (0.0-1.1) Eosinophils # (Auto) 0.0 x10^3/uL (0.0-0.7) 0.2 x10^3/uL (0.0-0.7) Basophils # (Auto) 0.0 x10^3/uL (0.0-0.2) 0.1 x10^3/uL (0.0-0.2) Segmented Neutrophils % 90 % (35-66) Band Neutrophils % 1 % (0-9) Lymphocytes % 6 % (24-48) Monocytes % 3 % (0-10) Platelet Estimate Adequate (ADEQUATE) Sodium Level 147 mmol/L (136-145) 145 mmol/L (136-145) Potassium Level 4.5 mmol/L (3.5-5.1) 4.0 mmol/L (3.5-5.1) Chloride Level 107 mmol/L (98-107) 108 mmol/L (98-107) Carbon Dioxide Level 31 mmol/L (21-32) 29 mmol/L (21-32) Anion Gap 9 (6-14) 8 (6-14) Blood Urea Nitrogen 47 mg/dL (7-20) 28 mg/dL (7-20) Creatinine 1.6 mg/dL (0.6-1.0) 1.3 mg/dL (0.6-1.0) Estimated GFR (Cockcroft-Gault) 31.6 40.2 BUN/Creatinine Ratio 29 (6-20) 22 (6-20) Glucose Level 180 mg/dL (70-99) 132 mg/dL (70-99) Calcium Level 9.4 mg/dL (8.5-10.1) 9.1 mg/dL (8.5-10.1) Ferritin 924 ng/mL (8-252) Total Bilirubin 1.0 mg/dL (0.2-1.0) 3.0 mg/dL (0.2-1.0) Aspartate Amino Transf (AST/SGOT) 656 U/L (15-37) 914 U/L (15-37) Alanine Aminotransferase (ALT/SGPT) 323 U/L (14-59) 701 U/L (14-59) Alkaline Phosphatase 209 U/L (46-116) 298 U/L (46-116) Troponin I Quantitative < 0.017 ng/mL (0.000-0.055) Total Protein 4.5 g/dL (6.4-8.2) 7.1 g/dL (6.4-8.2) Albumin 3.3 g/dL (3.4-5.0) 2.9 g/dL (3.4-5.0) Albumin/Globulin Ratio 2.8 (1.0-1.7) 0.7 (1.0-1.7) Lipase 473 U/L (73-393) 234 U/L (73-393) Thyroid Stimulating Hormone (TSH) 1.208 uIU/mL (0.358-3.74) Hepatitis A IgM Antibody Nonreactive (Nonreactive) Hepatitis B Surface Antigen Nonreactive (Nonreactive) Hepatitis B Core IgM Antibody Nonreactive (Nonreactive) Hepatitis C IgG Antibody Nonreactive (Nonreactive) Medications Current Medications Fentanyl Citrate (Fentanyl 2ml Vial) 25 mcg PRN Q15MIN PRN IV PAIN GREATER THAN 3/10 Last administered on 09/18/19at 09:06; Start 09/18/19 at 08:45; Stop 09/18/19 at 15:21; Status DC Sodium Chloride 1,000 ml @ 1,000 mls/hr Q1H IV Last administered on 09/18/19at 09:05; Start 09/18/19 at 08:43; Stop 09/18/19 at 09:42; Status DC Ondansetron HCl (Zofran) 4 mg 1X ONCE IV Last administered on 09/18/19at 09:06; Start 09/18/19 at 08:45; Stop 09/18/19 at 08:46; Status DC Ondansetron HCl (Zofran) 4 mg 1X ONCE IV Last administered on 09/18/19at 12:34; Start 09/18/19 at 12:30; Stop 09/18/19 at 12:35; Status DC Ondansetron HCl (Zofran) 4 mg PRN Q8HRS PRN IV NAUSEA/VOMITING Last admin istered on 09/18/19at 15:48; Start 09/18/19 at 13:00; Stop 09/18/19 at 16:08; Status DC Sodium Chloride 1,000 ml @ 125 mls/hr Q8H IV Last administered on 09/18/19at 23:56; Start 09/18/19 at 12:47; Stop 09/19/19 at 12:46 Morphine Sulfate (Morphine Sulfate) 2 mg PRN Q4HRS PRN IV PAIN Last administered on 09/19/19at 03:23; Start 09/18/19 at 15:15 Ondansetron HCl (Zofran) 4 mg PRN Q6HRS PRN IV NAUSEA/VOMITING Last administered on 09/19/19at 05:04; Start 09/18/19 at 16:00 Metoprolol Tartrate (Lopressor) 50 mg BID PO Last administered on 09/18/19at 22:52; Start 09/18/19 at 21:00 Amlodipine Besylate (Norvasc) 2.5 mg DAILY PO ; Start 09/19/19 at 09:00 Enoxaparin Sodium (Lovenox 30mg Syringe) 30 mg Q24H SQ Last administered on 09/18/19at 16:38; Start 09/18/19 at 16:15 Active Scripts Active Reported Hydrochlorothiazide Tablet (Hydrochlorothiazide) 12.5 Mg Tablet 12.5 Mg PO DAILY Amlodipine Besylate 2.5 Mg Tablet 2.5 Mg PO DAILY Last dose given: 9:00 a.m. Next dose due: 12-19-14 9:00 a.m. Lisinopril 20 Mg Tablet 40 Mg PO DAILY06 Last dose given: 9:00 a.m. Next dose due: 12-19-14 Metoprolol Tartrate 50 Mg Tablet 50 Mg PO BID Last dose given: 9:00 a.m. Next dose due: tonight Vitals/I & O Vital Sign - Last 24 Hours 09/18/19 09/18/19 09/18/19 09/18/19 08:34 09:04 09:34 10:04 Temp 98.6 98.6 Pulse 102 84 92 74 Resp 18 16 18 18 B/P (MAP) 129/60 (83) 142/77 (98) 159/72 (101) 157/74 (101) Pulse Ox 96 94 97 95 O2 Delivery Room Air Room Air Room Air Room Air 09/18/19 09/18/19 09/18/19 09/18/19 12:32 14:04 15:00 17:01 Temp 98.0 98.0 Pulse 80 84 78 Resp 18 16 18 B/P (MAP) 186/83 (117) 170/76 (107) 157/70 (99) Pulse Ox 96 96 96 O2 Delivery Room Air Room Air Room Air Room Air 09/18/19 09/18/19 09/18/19 09/18/19 19:00 20:00 22:52 23:00 Temp 98.6 98.2 98.6 98.2 Pulse 78 83 83 Resp 20 20 B/P (MAP) 157/76 (103) 155/74 155/75 (101) Pulse Ox 95 94 O2 Delivery Room Air Room Air Room Air 09/19/19 03:00 Temp 98.0 98.0 Pulse 69 Resp 20 B/P (MAP) 174/77 (109) Pulse Ox 93 O2 Delivery Room Air Intake and Output 09/18/19 09/18/19 09/19/19 15:00 23:00 07:00 Intake Total 50 ml 0 ml Balance 50 ml 0 ml KSENIA CHU MD Sep 19, 2019 07:19
[2019-09-19] MEDS ORDERED: KETOROLAC 15 MG/ML VIAL. IVP ONE (08:30)
[2019-09-19] MEDS: METOPROLOL TART IMMED RELEASE 50 MG TABLET. PO SCH ×2 (09:00→20:27)
[2019-09-19] MEDS ORDERED: PROCHLORPERAZINE 10 MG/2 ML VIAL. IV PRN ×2 (10:15)
[2019-09-19 11:00] VITALS: BP 108/53
[2019-09-19] MEDS: IV RINGERS,LACTATED 1000ML 1,000 ML IV SCH (13:30)
[2019-09-19] MEDS ORDERED: LIDOCAINE 2% PF 5 ML VIAL. ONE (13:33)
[2019-09-19] MEDS ORDERED: PROPOFOL 20 ML IV ONE (13:33)
[2019-09-19] MEDS ORDERED: SUCCINYLCHOLINE 200 MG/10 ML VIAL. ONE (13:33)
[2019-09-19] MEDS ORDERED: DEXAMETHASONE SOD PHOS 4 MG/ML VIAL ONE (13:33)
[2019-09-19] MEDS ORDERED: ONDANSETRON PF 4 MG/2 ML VIAL. ONE (13:33)
[2019-09-19] MEDS ORDERED: SEVOFLURANE 61 TO 120 MINUTES. IH ONE (13:35)
[2019-09-19] MEDS ORDERED: IOHEXOL 300 MG/ML 100ML VIAL. ONE (14:41)
--- NOTE | 2019-09-19 14:56 | PDOC2 ---
CONSULT Date of Consult Date of Consult DATE: 09/19/19 TIME: 14:54 Reason for Consult Reason for Consult: Obstructive jaundice Past Medical History Cardiovascular: HTN Past Surgical History Past Surgical History: Appendectomy, Total knee replacement (L) Family History Family History: High Cholestrol, Hypertension Social History No ALCOHOL: none Drugs: None Current Problem List Problem List Problems Medical Problems: (1) Acute hepatitis Status: Acute (2) Acute kidney injury Status: Acute (3) Dehydration Status: Acute Current Medications Current Medications Current Medications Fentanyl Citrate (Fentanyl 2ml Vial) 25 mcg PRN Q15MIN PRN IV PAIN GREATER THAN 3/10 Last administered on 09/18/19 09:06; Start 09/18/19 at 08:45; Stop 09/18/19 at 15:21; Status DC Sodium Chloride 1,000 ml @ 1,000 mls/hr Q1H IV Last administered on 09/18/19at 09:05; Start 09/18/19 at 08:43; Stop 09/18/19 at 09:42; Status DC Ondansetron HCl (Zofran) 4 mg 1X ONCE IV Last administered on 09/18/19at 09:06; Start 09/18/19 at 08:45; Stop 09/18/19 at 08:46; Status DC Ondansetron HCl (Zofran) 4 mg 1X ONCE IV Last administered on 09/18/19at 12:34; Start 09/18/19 at 12:30; Stop 09/18/19 at 12:35; Status DC Ondansetron HCl (Zofran) 4 mg PRN Q8HRS PRN IV NAUSEA/VOMITING Last administered on 09/18/19at 15:48; Start 09/18/19 at 13:00; Stop 09/18/19 at 16:08; Status DC Sodium Chloride 1,000 ml @ 125 mls/hr Q8H IV Last administered on 09/18/19at 23:56; Start 09/18/19 at 12:47; Stop 09/19/19 at 12:46; Status DC Morphine Sulfate (Morphine Sulfate) 2 mg PRN Q4HRS PRN IV PAIN Last administered on 09/19/19at 09:46; Start 09/18/19 at 15:15 Ondansetron HCl (Zofran) 4 mg PRN Q6HRS PRN IV NAUSEA/VOMITING Last administered on 09/19/19at 05:04; Start 09/18/19 at 16:00 Metoprolol Tartrate (Lopressor) 50 mg BID PO Last administered on 09/18/19at 22:52; Start 09/18/19 at 21:00 Amlodipine Besylate (Norvasc) 2.5 mg DAILY PO ; Start 09/19/19 at 09:00 Enoxaparin Sodium (Lovenox 30mg Syringe) 30 mg Q24H SQ Last administered on 09/18/19at 16:38; Start 09/18/19 at 16:15 Ketorolac Tromethamine (Toradol 15mg Vial) 15 mg 1X ONCE IVP Last administered on 09/19/19at 09:45; Start 09/19/19 at 08:30; Stop 09/19/19 at 08:48; Status DC Prochlorperazine Edisylate (Compazine) 10 mg PRN Q6HRS PRN IV NAUSEA/VOMITING Last administered on 09/19/19at 10:18; Start 09/19/19 at 10:15 Prochlorperazine Edisylate (Compazine) 5 mg PRN Q6HRS PRN IV NAUSEA/VOMITING; Start 09/19/19 at 10:15 Ringer's Solution 1,000 ml @ 100 mls/hr Q10H IV ; Start 09/19/19 at 13:30 Propofol 20 ml @ As Directed STK-MED ONCE IV ; Start 09/19/19 at 13:33; Stop 09/19/19 at 13:34; Status DC Lidocaine HCl (Lidocaine Pf 2% Vial) 5 ml STK-MED ONCE .ROUTE ; Start 09/19/19 at 13:33; Stop 09/19/19 at 13:34; Status DC Ondansetron HCl (Zofran) 4 mg STK-MED ONCE .ROUTE ; Start 09/19/19 at 13:33; Stop 09/19/19 at 13:34; Status DC Dexamethasone Sodium Phosphate (Decadron) 4 mg STK-MED ONCE .ROUTE ; Start 09/19/19 at 13:33; Stop 09/19/19 at 13:34; Status DC Succinylcholine Chloride (Anectine) 200 mg STK-MED ONCE .ROUTE ; Start 09/19/19 at 13:33; Stop 09/19/19 at 13:34; Status DC Sevoflurane (Ultane) 60 ml STK-MED ONCE IH ; Start 09/19/19 at 13:35; Stop 09/19/19 at 13:35; Status DC Iohexol (Omnipaque 300 Mg/ml) 100 ml STK-MED ONCE .ROUTE ; Start 09/19/19 at 14:41; Stop 09/19/19 at 14:41; Status DC Active Scripts Active Reported Hydrochlorothiazide Tablet (Hydrochlorothiazide) 12.5 Mg Tablet 12.5 Mg PO DAILY Amlodipine Besylate 2.5 Mg Tablet 2.5 Mg PO DAILY Last dose given: 9:00 a.m. Next dose due: 12-19-14 9:00 a.m. Lisinopril 20 Mg Tablet 40 Mg PO DAILY06 Last dose given: 9:00 a.m. Next dose due: 12-19-14 Metoprolol Tartrate 50 Mg Tablet 50 Mg PO BID Last dose given: 9:00 a.m. Next dose due: tonight Allergies Allergies: Coded Allergies: nickel (Verified Allergy, Intermediate, REDNESS AND SWELLING, METAL, 12/15/14) acetaminophen (Verified Adverse Reaction, Intermediate, NAUSEA AND VOMITING, 12/15/14) hydrocodone (Verified Adverse Reaction, Mild, NAUSEA AND VOMITING, 09/18/19) Vitals VITALS Vital Signs Date Time Temp Pulse Resp B/P (MAP) Pulse Ox O2 Delivery O2 Flow Rate FiO2 09/19/19 13:17 97.4 70 18 94 97.4 09/19/19 13:15 Room Air 09/19/19 11:00 108/53 (71) Labs Labs Laboratory Tests Test 09/18/19 08:29 09/18/19 09:20 09/19/19 04:30 Urine Collection Type Unknown Urine Color Yellow Urine Clarity Clear Urine pH 5.0 Urine Specific [place] 1.020 Urine Protein Trace mg/dL (NEG-TRACE) Urine Glucose (UA) 100 mg/dL (NEG) Urine Ketones (Stick) Trace mg/dL (NEG) Urine Blood Trace (NEG) Urine Nitrite Negative (NEG) Urine Bilirubin Negative (NEG) Urine Urobilinogen Dipstick 0.2 mg/dL (0.2 mg/dL) Urine Leukocyte Esterase Trace (NEG) Urine RBC 0 /HPF (0-2) Urine WBC 1-4 /HPF (0-4) Urine Squamous Epithelial Cells Few /LPF Urine Amorphous Sediment Present /HPF Urine Bacteria 0 /HPF (0-FEW) Urine Hyaline Casts Few /HPF Urine Mucus Mod /LPF White Blood Count 12.0 x10^3/uL (4.0-11.0) 12.0 x10^3/uL (4.0-11.0) Red Blood Count 4.19 x10^6/uL (3.50-5.40) 4.17 x10^6/uL (3.50-5.40) Hemoglobin 12.4 g/dL (12.0-15.5) 12.5 g/dL (12.0-15.5) Hematocrit 37.8 % (36.0-47.0) 38.2 % (36.0-47.0) Mean Corpuscular Volume 90 fL (79-100) 92 fL (79-100) Mean Corpuscular Hemoglobin 30 pg (25-35) 30 pg (25-35) Mean Corpuscular Hemoglobin Concent 33 g/dL (31-37) 33 g/dL (31-37) Red Cell Distribution Width 12.9 % (11.5-14.5) 13.2 % (11.5-14.5) Platelet Count 452 x10^3/uL (140-400) 377 x10^3/uL (140-400) Neutrophils (%) (Auto) 90 % (31-73) 90 % (31-73) Lymphocytes (%) (Auto) 5 % (24-48) 7 % (24-48) Monocytes (%) (Auto) 4 % (0-9) 2 % (0-9) Eosinophils (%) (Auto) 0 % (0-3) 1 % (0-3) Basophils (%) (Auto) 0 % (0-3) 1 % (0-3) Neutrophils # (Auto) 10.8 x10^3/uL (1.8-7.7) 10.8 x10^3/uL (1.8-7.7) Lymphocytes # (Auto) 0.6 x10^3/uL (1.0-4.8) 0.8 x10^3/uL (1.0-4.8) Monocytes # (Auto) 0.5 x10^3/uL (0.0-1.1) 0.3 x10^3/uL (0.0-1.1) Eosinophils # (Auto) 0.0 x10^3/uL (0.0-0.7) 0.2 x10^3/uL (0.0-0.7) Basophils # (Auto) 0.0 x10^3/uL (0.0-0.2) 0.1 x10^3/uL (0.0-0.2) Segmented Neutrophils % 90 % (35-66) Band Neutrophils % 1 % (0-9) Lymphocytes % 6 % (24-48) Monocytes % 3 % (0-10) Platelet Estimate Adequate (ADEQUATE) Sodium Level 147 mmol/L (136-145) 145 mmol/L (136-145) Potassium Level 4.5 mmol/L (3.5-5.1) 4.0 mmol/L (3.5-5.1) Chloride Level 107 mmol/L (98-107) 108 mmol/L (98-107) Carbon Dioxide Level 31 mmol/L (21-32) 29 mmol/L (21-32) Anion Gap 9 (6-14) 8 (6-14) Blood Urea Nitrogen 47 mg/dL (7-20) 28 mg/dL (7-20) Creatinine 1.6 mg/dL (0.6-1.0) 1.3 mg/dL (0.6-1.0) Estimated GFR (Cockcroft-Gault) 31.6 40.2 BUN/Creatinine Ratio 29 (6-20) 22 (6-20) Glucose Level 180 mg/dL (70-99) 132 mg/dL (70-99) Calcium Level 9.4 mg/dL (8.5-10.1) 9.1 mg/dL (8.5-10.1) Ferritin 924 ng/mL (8-252) Total Bilirubin 1.0 mg/dL (0.2-1.0) 3.0 mg/dL (0.2-1.0) Aspartate Amino Transf (AST/SGOT) 656 U/L (15-37) 914 U/L (15-37) Alanine Aminotransferase (ALT/SGPT) 323 U/L (14-59) 701 U/L (14-59) Alkaline Phosphatase 209 U/L (46-116) 298 U/L (46-116) Troponin I Quantitative < 0.017 ng/mL (0.000-0.055) Total Protein 4.5 g/dL (6.4-8.2) 7.1 g/dL (6.4-8.2) Albumin 3.3 g/dL (3.4-5.0) 2.9 g/dL (3.4-5.0) Albumin/Globulin Ratio 2.8 (1.0-1.7) 0.7 (1.0-1.7) Lipase 473 U/L (73-393) 234 U/L (73-393) Thyroid Stimulating Hormone (TSH) 1.208 uIU/mL (0.358-3.74) Hepatitis A IgM Antibody Nonreactive (Nonreactive) Hepatitis B Surface Antigen Nonreactive (Nonreactive) Hepatitis B Core IgM Antibody Nonreactive (Nonreactive) Hepatitis C IgG Antibody Nonreactive (Nonreactive) Laboratory Tests Test 09/19/19 04:30 White Blood Count 12.0 x10^3/uL (4.0-11.0) Red Blood Count 4.17 x10^6/uL (3.50-5.40) Hemoglobin 12.5 g/dL (12.0-15.5) Hematocrit 38.2 % (36.0-47.0) Mean Corpuscular Volume 92 fL (79-100) Mean Corpuscular Hemoglobin 30 pg (25-35) Mean Corpuscular Hemoglobin Concent 33 g/dL (31-37) Red Cell Distribution Width 13.2 % (11.5-14.5) Platelet Count 377 x10^3/uL (140-400) Neutrophils (%) (Auto) 90 % (31-73) Lymphocytes (%) (Auto) 7 % (24-48) Monocytes (%) (Auto) 2 % (0-9) Eosinophils (%) (Auto) 1 % (0-3) Basophils (%) (Auto) 1 % (0-3) Neutrophils # (Auto) 10.8 x10^3/uL (1.8-7.7) Lymphocytes # (Auto) 0.8 x10^3/uL (1.0-4.8) Monocytes # (Auto) 0.3 x10^3/uL (0.0-1.1) Eosinophils # (Auto) 0.2 x10^3/uL (0.0-0.7) Basophils # (Auto) 0.1 x10^3/uL (0.0-0.2) Sodium Level 145 mmol/L (136-145) Potassium Level 4.0 mmol/L (3.5-5.1) Chloride Level 108 mmol/L (98-107) Carbon Dioxide Level 29 mmol/L (21-32) Anion Gap 8 (6-14) Blood Urea Nitrogen 28 mg/dL (7-20) Creatinine 1.3 mg/dL (0.6-1.0) Estimated GFR (Cockcroft-Gault) 40.2 BUN/Creatinine Ratio 22 (6-20) Glucose Level 132 mg/dL (70-99) Calcium Level 9.1 mg/dL (8.5-10.1) Total Bilirubin 3.0 mg/dL (0.2-1.0) Aspartate Amino Transf (AST/SGOT) 914 U/L (15-37) Alanine Aminotransferase (ALT/SGPT) 701 U/L (14-59) Alkaline Phosphatase 298 U/L (46-116) Total Protein 7.1 g/dL (6.4-8.2) Albumin 2.9 g/dL (3.4-5.0) Albumin/Globulin Ratio 0.7 (1.0-1.7) Lipase 234 U/L (73-393) Assessment/Plan Assessment/Plan Obstructive jaundice-with abnlk US, Choledocholithiasis most likely. Plan ERCP with sphincterotomy and stone extraction. Risks and benefits discussed with patient who is willing to proceed surgical consult for lap basil serial LFTs Full note dictated PETE DUNCAN MD Sep 19, 2019 14:56
[2019-09-19] MEDS ORDERED: IOHEXOL 300 MG/ML 50 ML VIAL. INT CAT ONE (15:25)
--- NOTE | 2019-09-19 15:46 | PDOC4 ---
Operative Note Operative Note ERCp with sphincterotomy/stone extractions Meds Propofol per anesthesia pre-op dx obstructive jaundice/abnl US choledocholithiasis post-op dx cholangitis s/p sphincterotomy and stone extractions Plan antibiotics serial labs surgical consult for lap basil later this hospital stay PETE DUNCAN MD Sep 19, 2019 15:46
--- NOTE | 2019-09-19 16:17 | RAD ---
Fluoroscopic x-rays ERCP Fluoroscopy time 3.3 minutes, 6 x-ray images HISTORY: Gallstones. FINDINGS: Images demonstrate the endoscope and catheterization and contrast injection of the bile ducts the scope obscures much of the common bile duct limiting assessment for strictures or calculi, the bile ducts appear dilated. Incomplete contrast density within the distal common bile duct on the earlier images versus faint filling defects from calculi are noted. IMPRESSION: See above. Electronically signed by: Mekhi Pepper MD (09/19/2019 4:15 PM) [facility]
--- NOTE | 2019-09-19 16:58 | CONS ---
DATE OF CONSULTATION: 09/19/2019 REASON FOR CONSULTATION: Obstructive jaundice. REFERRING PHYSICIAN: Dr. Semaj Tovar. HISTORY OF PRESENT ILLNESS: A 74-year-old female with past medical history significant for knee replacement, appendectomy and hypertension, is admitted with a 1 week history of intermittent right upper quadrant pain, which has progressively worsened. She subsequently has come to the hospital, had followup on her liver enzymes with a bilirubin up to 3 and ultrasound shows common duct stones. Consultation request for ERCP, sphincterotomy and stone extraction. The patient states that she is otherwise without additional complaints. PAST MEDICAL HISTORY: Status post appendectomy, knee replacement, hypertension. ALLERGIES: HYDROCODONE, NICKEL. MEDICATIONS: Presently include amlodipine, metoprolol, Lovenox. SOCIAL HISTORY: She is retired. Does not drink or smoke. FAMILY HISTORY: Noncontributory. REVIEW OF SYSTEMS: Per records. PHYSICAL EXAMINATION: GENERAL: Reveals a well-nourished, well-developed female who is jaundiced. VITAL SIGNS: Temperature 97.4, pulse 70, respiratory rate 18, blood pressure 108/53. HEENT: Normocephalic, atraumatic head. Pupils and extraocular muscles are not tested. Sclerae anicteric. NECK: Supple. LUNGS: Clear. CARDIOVASCULAR: Reveals S1, S2 without S3, S4 or appreciable murmur. ABDOMEN: Reveals a soft abdomen with epigastric right upper quadrant tenderness to deep palpation. EXTREMITIES: Reveals no cyanosis, clubbing or edema. LABORATORY STUDIES: Sodium 145, potassium 4.0, chloride 108, bicarbonate 29, BUN 20, creatinine 1.3, glucose 132, calcium 9.1, ferritin 924, total bilirubin 3.0, AST of 914, ALT of 701, alkaline phosphatase 298. Lipase of 234. Hemoglobin is 12.5, hematocrit 36.2, white count 12.0, platelet count is 377,000. IMPRESSION: Obstructive jaundice secondary to common duct stones. We will recommend ERCP, sphincterotomy, stone extraction. Risks and benefits of procedure including risk of hemorrhage and perforation during the operation as well as pancreatitis have been discussed. The patient is willing to proceed at this time. Surgical consultation for laparoscopic cholecystectomy would follow as well as serial labs and enzymes. PETE DUNCAN MD DR: FRANCY/kelle JOB#: [id number] / [id number] SEMAJ Arias MD
[2019-09-19] MEDS: ENOXAPARIN 40 MG/0.4 ML SYRINGE. SQ SCH (17:00)
[2019-09-19] MEDS: amLODIPine BESYLATE 5 MG TABLET PO SCH (17:10)
[2019-09-19] MEDS: IV NORMAL SALINE 1000ML BAG 1,000 ML IV SCH (17:11)
--- NOTE | 2019-09-19 17:32 | NUR ---
liliana held d/t possible basil tomorrow
[2019-09-19 19:00] VITALS: BP 130/65
[2019-09-19 23:01] VITALS: BP 111/57
[2019-09-20] MEDS: IV RINGERS,LACTATED 1000ML 1,000 ML IV SCH ×3 (00:15→21:03)
[2019-09-20] MEDS: MORPHINE SULFATE 2 MG/ML VIAL. IV PRN ×2 (00:17→06:26)
[2019-09-20 03:01] VITALS: BP 151/76
[2019-09-20 06:56] LABS: BASO % 0 % (0-3); EOS % 0 % (0-3); HEMATOCRIT 34.1 % (36.0-47.0); LYMPH # 1.4 x10^3/uL (1.0-4.8); LYMPH % 7 % (24-48); MEAN CORPUSCULAR HEMOGLOBIN 30 pg (25-35); MEAN CORPUSCULAR HGB CONC 32 g/dL (31-37); MEAN CORPUSCULAR VOLUME 93 fL (79-100); MONO # 0.9 x10^3/uL (0.0-1.1); MONO % 4 % (0-9); NEUT # 17.7 x10^3/uL (1.8-7.7); NEUT % 88 % (31-73); PLATELET COUNT 303 x10^3/uL (140-400); RED BLOOD COUNT 3.68 x10^6/uL (3.50-5.40); RED CELL DISTRIBUTION WIDTH 13.6 % (11.5-14.5); WHITE BLOOD COUNT 20.1 x10^3/uL (4.0-11.0)
[2019-09-20 07:00] VITALS: BP 152/68
[2019-09-20 07:30] LABS: ALBUMIN 2.6 g/dL (3.4-5.0); ALBUMIN/GLOBULIN RATIO 0.8 (1.0-1.7); CALCIUM 8.3 mg/dL (8.5-10.1); CREATININE 1.5 mg/dL (0.6-1.0); POTASSIUM 4.9 mmol/L (3.5-5.1); TOTAL BILIRUBIN 2.7 mg/dL (0.2-1.0); TOTAL PROTEIN 5.8 g/dL (6.4-8.2)
--- NOTE | 2019-09-20 08:16 | PDOC ---
PROGRESS NOTES Chief Complaint Chief Complaint A/P: Choledocholithiasis - with Intractable abdominal pain - non-remitting, has acute hepatitis by labs. S/p ERCP 09/19 Nausea and vomiting - possibly gastroenteritis, definitely with a mild pancreatitis and hepatitis 2/2 choledocholithiasis. Will give anti-emetics, pain control. Bowel rest. GI for ERCP NADIR - vasomotor nephropathy likely 2/2 vomiting and poor recent PO intake, will hydrate Hyperglycemia - likely reactive, will trend Acute transaminitis - as above, consult GI. NPO, trend LFTs. RUQ imaging via US confirms choledocholithiasis Leukocytosis - with tachycardia, she has SIRS, this is likely reactive given her recent vomiting, possibly also having a viral gastroenteritis, will trend. Will initiate antibiotics Non-obstructive left nephrolithiasis - unlikely culprit given her current lo cation of pain FEN - NPO PPX - Lovenox 30 mg FULL CODE Dispo - inpatient for N/V, likely 2 midnights. History of Present Illness History of Present Illness Ms Zapata is a 74-year-old female with PMHx HTN who presents with complaint of upper mid-epigastric abdominal pain that started night before Thanks[place]. Patient states that she has had a few episodes of nausea with vomiting. She had eaten a cheeseburger at a local casino prior to this episode and has been having this issue with abdominal pain for the past 5 days which has progressed and now is constant. 2 weeks ago she had similar pain and nausea, relegated to her left upper quadrant that she compared to morning sickness. She was seen in urgent care at that time and given a PPI and antiemetic and improved until 5 days ago. No recent travel or sick contacts, no well water exposure. No diarrhea. She states that her last normal bowel movement was yesterday and states that she has been passing some gas during her pain. She rates the pain at an 8 out of 10. She states that the pain is worsened with movement and with palpation. She also denies any fever. In ED found with WBC of 12, BUN 47, Cr 1.6, Lipase 473, AST 656, ALT 323. Bilirubin 1. CT abdomen pelvis performed without contrast showing non- obstructive left renal calculus, diverticulosis, otherwise no acute process. She is UTD on colonoscopy screening. 09/19: RUQ US reveals choledocholithiasis with CBD 1.2cm and multiple stones. LFTs elevating today. A little jaundiced. still with abdominal pain, nausea and vomiting. ERCP with stone extraction and sphincterotomy LFTs up, lipase WNL. WBC 20 today. On levaquin. Plan for surgical consultation. Her pain is not well controlled with morphine. Plan: Dilaudid 1mg Consult general surgery Vitals Vitals Vital Signs Date Time Temp Pulse Resp B/P (MAP) Pulse Ox O2 Delivery O2 Flow Rate FiO2 09/20/19 07:00 98.3 77 20 152/68 (96) 94 Room Air 98.3 Physical Exam General: Alert, Oriented X3, Cooperative, mild distress Heart: Regular rate, Normal S1, Normal S2 Lungs: Clear Abdomen: Normal bowel sounds, Soft, No hepatosplenomegaly, No masses, Other (Epigastric and RUQ tenderness) Extremities: No clubbing, No cyanosis, No edema, Normal pulses, No tenderness/swelling Skin: No rashes, No breakdown, No significant lesion Labs LABS Laboratory Tests Test 09/20/19 06:30 White Blood Count 20.1 x10^3/uL (4.0-11.0) Red Blood Count 3.68 x10^6/uL (3.50-5.40) Hemoglobin 11.0 g/dL (12.0-15.5) Hematocrit 34.1 % (36.0-47.0) Mean Corpuscular Volume 93 fL (79-100) Mean Corpuscular Hemoglobin 30 pg (25-35) Mean Corpuscular Hemoglobin Concent 32 g/dL (31-37) Red Cell Distribution Width 13.6 % (11.5-14.5) Platelet Count 303 x10^3/uL (140-400) Neutrophils (%) (Auto) 88 % (31-73) Lymphocytes (%) (Auto) 7 % (24-48) Monocytes (%) (Auto) 4 % (0-9) Eosinophils (%) (Auto) 0 % (0-3) Basophils (%) (Auto) 0 % (0-3) Neutrophils # (Auto) 17.7 x10^3/uL (1.8-7.7) Lymphocytes # (Auto) 1.4 x10^3/uL (1.0-4.8) Monocytes # (Auto) 0.9 x10^3/uL (0.0-1.1) Eosinophils # (Auto) 0.0 x10^3/uL (0.0-0.7) Basophils # (Auto) 0.0 x10^3/uL (0.0-0.2) Sodium Level 147 mmol/L (136-145) Potassium Level 4.9 mmol/L (3.5-5.1) Chloride Level 109 mmol/L (98-107) Carbon Dioxide Level 27 mmol/L (21-32) Anion Gap 11 (6-14) Blood Urea Nitrogen 34 mg/dL (7-20) Creatinine 1.5 mg/dL (0.6-1.0) Estimated GFR (Cockcroft-Gault) 34.0 BUN/Creatinine Ratio 23 (6-20) Glucose Level 109 mg/dL (70-99) Calcium Level 8.3 mg/dL (8.5-10.1) Total Bilirubin 2.7 mg/dL (0.2-1.0) Aspartate Amino Transf (AST/SGOT) 315 U/L (15-37) Alanine Aminotransferase (ALT/SGPT) 502 U/L (14-59) Alkaline Phosphatase 339 U/L (46-116) Total Protein 5.8 g/dL (6.4-8.2) Albumin 2.6 g/dL (3.4-5.0) Albumin/Globulin Ratio 0.8 (1.0-1.7) Amylase Level 66 U/L (25-115) Lipase 181 U/L (73-393) Assessment and Plan Assessmemt and Plan Problems Medical Problems: (1) Acute hepatitis Status: Acute (2) Acute kidney injury Status: Acute (3) Dehydration Status: Acute Comment Review of Relevant I have reviewed the following items tatianna (where applicable) has been applied. Labs Laboratory Tests Test 09/18/19 08:29 09/18/19 09:20 09/19/19 04:30 09/20/19 06:30 Urine Collection Type Unknown Urine Color Yellow Urine Clarity Clear Urine pH 5.0 Urine Specific Harvey 1.020 Urine Protein Trace mg/dL (NEG-TRACE) Urine Glucose (UA) 100 mg/dL (NEG) Urine Ketones (Stick) Trace mg/dL (NEG) Urine Blood Trace (NEG) Urine Nitrite Negative (NEG) Urine Bilirubin Negative (NEG) Urine Urobilinogen Dipstick 0.2 mg/dL (0.2 mg/dL) Urine Leukocyte Esterase Trace (NEG) Urine RBC 0 /HPF (0-2) Urine WBC 1-4 /HPF (0-4) Urine Squamous Epithelial Cells Few /LPF Urine Amorphous Sediment Present /HPF Urine Bacteria 0 /HPF (0-FEW) Urine Hyaline Casts Few /HPF Urine Mucus Mod /LPF White Blood Count 12.0 x10^3/uL (4.0-11.0) 12.0 x10^3/uL (4.0-11.0) 20.1 x10^3/uL (4.0-11.0) Red Blood Count 4.19 x10^6/uL (3.50-5.40) 4.17 x10^6/uL (3.50-5.40) 3.68 x10^6/uL (3.50-5.40) Hemoglobin 12.4 g/dL (12.0-15.5) 12.5 g/dL (12.0-15.5) 11.0 g/dL (12.0-15.5) Hematocrit 37.8 % (36.0-47.0) 38.2 % (36.0-47.0) 34.1 % (36.0-47.0) Mean Corpuscular Volume 90 fL (79-100) 92 fL (79-100) 93 fL (79-100) Mean Corpuscular Hemoglobin 30 pg (25-35) 30 pg (25-35) 30 pg (25-35) Mean Corpuscular Hemoglobin Concent 33 g/dL (31-37) 33 g/dL (31-37) 32 g/dL (31-37) Red Cell Distribution Width 12.9 % (11.5-14.5) 13.2 % (11.5-14.5) 13.6 % (11.5-14.5) Platelet Count 452 x10^3/uL (140-400) 377 x10^3/uL (140-400) 303 x10^3/uL (140-400) Neutrophils (%) (Auto) 90 % (31-73) 90 % (31-73) 88 % (31-73) Lymphocytes (%) (Auto) 5 % (24-48) 7 % (24-48) 7 % (24-48) Monocytes (%) (Auto) 4 % (0-9) 2 % (0-9) 4 % (0-9) Eosinophils (%) (Auto) 0 % (0-3) 1 % (0-3) 0 % (0-3) Basophils (%) (Auto) 0 % (0-3) 1 % (0-3) 0 % (0-3) Neutrophils # (Auto) 10.8 x10^3/uL (1.8-7.7) 10.8 x10^3/uL (1.8-7.7) 17.7 x10^3/uL (1.8-7.7) Lymphocytes # (Auto) 0.6 x10^3/uL (1.0-4.8) 0.8 x10^3/uL (1.0-4.8) 1.4 x10^3/uL (1.0-4.8) Monocytes # (Auto) 0.5 x10^3/uL (0.0-1.1) 0.3 x10^3/uL (0.0-1.1) 0.9 x10^3/uL (0.0-1.1) Eosinophils # (Auto) 0.0 x10^3/uL (0.0-0.7) 0.2 x10^3/uL (0.0-0.7) 0.0 x10^3/uL (0.0-0.7) Basophils # (Auto) 0.0 x10^3/uL (0.0-0.2) 0.1 x10^3/uL (0.0-0.2) 0.0 x10^3/uL (0.0-0.2) Segmented Neutrophils % 90 % (35-66) Band Neutrophils % 1 % (0-9) Lymphocytes % 6 % (24-48) Monocytes % 3 % (0-10) Platelet Estimate Adequate (ADEQUATE) Sodium Level 147 mmol/L (136-145) 145 mmol/L (136-145) 147 mmol/L (136-145) Potassium Level 4.5 mmol/L (3.5-5.1) 4.0 mmol/L (3.5-5.1) 4.9 mmol/L (3.5-5.1) Chloride Level 107 mmol/L (98-107) 108 mmol/L (98-107) 109 mmol/L (98-107) Carbon Dioxide Level 31 mmol/L (21-32) 29 mmol/L (21-32) 27 mmol/L (21-32) Anion Gap 9 (6-14) 8 (6-14) 11 (6-14) Blood Urea Nitrogen 47 mg/dL (7-20) 28 mg/dL (7-20) 34 mg/dL (7-20) Creatinine 1.6 mg/dL (0.6-1.0) 1.3 mg/dL (0.6-1.0) 1.5 mg/dL (0.6-1.0) Estimated GFR (Cockcroft-Gault) 31.6 40.2 34.0 BUN/Creatinine Ratio 29 (6-20) 22 (6-20) 23 (6-20) Glucose Level 180 mg/dL (70-99) 132 mg/dL (70-99) 109 mg/dL (70-99) Calcium Level 9.4 mg/dL (8.5-10.1) 9.1 mg/dL (8.5-10.1) 8.3 mg/dL (8.5-10.1) Ferritin 924 ng/mL (8-252) Total Bilirubin 1.0 mg/dL (0.2-1.0) 3.0 mg/dL (0.2-1.0) 2.7 mg/dL (0.2-1.0) Aspartate Amino Transf (AST/SGOT) 656 U/L (15-37) 914 U/L (15-37) 315 U/L (15-37) Alanine Aminotransferase (ALT/SGPT) 323 U/L (14-59) 701 U/L (14-59) 502 U/L (14-59) Alkaline Phosphatase 209 U/L (46-116) 298 U/L (46-116) 339 U/L (46-116) Troponin I Quantitative < 0.017 ng/mL (0.000-0.055) Total Protein 4.5 g/dL (6.4-8.2) 7.1 g/dL (6.4-8.2) 5.8 g/dL (6.4-8.2) Albumin 3.3 g/dL (3.4-5.0) 2.9 g/dL (3.4-5.0) 2.6 g/dL (3.4-5.0) Albumin/Globulin Ratio 2.8 (1.0-1.7) 0.7 (1.0-1.7) 0.8 (1.0-1.7) Lipase 473 U/L (73-393) 234 U/L (73-393) 181 U/L (73-393) Thyroid Stimulating Hormone (TSH) 1.208 uIU/mL (0.358-3.74) Hepatitis A IgM Antibody Nonreactive (Nonreactive) Hepatitis B Surface Antigen Nonreactive (Nonreactive) Hepatitis B Core IgM Antibody Nonreactive (Nonreactive) Hepatitis C IgG Antibody Nonreactive (Nonreactive) Amylase Level 66 U/L (25-115) Laboratory Tests Test 09/20/19 06:30 White Blood Count 20.1 x10^3/uL (4.0-11.0) Red Blood Count 3.68 x10^6/uL (3.50-5.40) Hemoglobin 11.0 g/dL (12.0-15.5) Hematocrit 34.1 % (36.0-47.0) Mean Corpuscular Volume 93 fL (79-100) Mean Corpuscular Hemoglobin 30 pg (25-35) Mean Corpuscular Hemoglobin Concent 32 g/dL (31-37) Red Cell Distribution Width 13.6 % (11.5-14.5) Platelet Count 303 x10^3/uL (140-400) Neutrophils (%) (Auto) 88 % (31-73) Lymphocytes (%) (Auto) 7 % (24-48) Monocytes (%) (Auto) 4 % (0-9) Eosinophils (%) (Auto) 0 % (0-3) Basophils (%) (Auto) 0 % (0-3) Neutrophils # (Auto) 17.7 x10^3/uL (1.8-7.7) Lymphocytes # (Auto) 1.4 x10^3/uL (1.0-4.8) Monocytes # (Auto) 0.9 x10^3/uL (0.0-1.1) Eosinophils # (Auto) 0.0 x10^3/uL (0.0-0.7) Basophils # (Auto) 0.0 x10^3/uL (0.0-0.2) Sodium Level 147 mmol/L (136-145) Potassium Level 4.9 mmol/L (3.5-5.1) Chloride Level 109 mmol/L (98-107) Carbon Dioxide Level 27 mmol/L (21-32) Anion Gap 11 (6-14) Blood Urea Nitrogen 34 mg/dL (7-20) Creatinine 1.5 mg/dL (0.6-1.0) Estimated GFR (Cockcroft-Gault) 34.0 BUN/Creatinine Ratio 23 (6-20) Glucose Level 109 mg/dL (70-99) Calcium Level 8.3 mg/dL (8.5-10.1) Total Bilirubin 2.7 mg/dL (0.2-1.0) Aspartate Amino Transf (AST/SGOT) 315 U/L (15-37) Alanine Aminotransferase (ALT/SGPT) 502 U/L (14-59) Alkaline Phosphatase 339 U/L (46-116) Total Protein 5.8 g/dL (6.4-8.2) Albumin 2.6 g/dL (3.4-5.0) Albumin/Globulin Ratio 0.8 (1.0-1.7) Amylase Level 66 U/L (25-115) Lipase 181 U/L (73-393) Medications Current Medications Fentanyl Citrate (Fentanyl 2ml Vial) 25 mcg PRN Q15MIN PRN IV PAIN GREATER THAN 3/10 Last administered on 09/18/19 09:06; Start 09/18/19 at 08:45; Stop 09/18/19 at 15:21; Status DC Sodium Chloride 1,000 ml @ 1,000 mls/hr Q1H IV Last administered on 09/18/19 09:05; Start 09/18/19 at 08:43; Stop 09/18/19 at 09:42; Status DC Ondansetron HCl (Zofran) 4 mg 1X ONCE IV Last administered on 09/18/19 09:06; Start 09/18/19 at 08:45; Stop 09/18/19 at 08:46; Status DC Ondansetron HCl (Zofran) 4 mg 1X ONCE IV Last administered on 09/18/19 12:34; Start 09/18/19 at 12:30; Stop 09/18/19 at 12:35; Status DC Ondansetron HCl (Zofran) 4 mg PRN Q8HRS PRN IV NAUSEA/VOMITING Last administered on 09/18/19 15:48; Start 09/18/19 at 13:00; Stop 09/18/19 at 16:08; Status DC Sodium Chloride 1,000 ml @ 125 mls/hr Q8H IV Last administered on 09/19/19 17:11; Start 09/18/19 at 12:47; Stop 09/19/19 at 12:46; Status DC Morphine Sulfate (Morphine Sulfate) 2 mg PRN Q4HRS PRN IV PAIN Last administered on 09/20/19 06:26; Start 09/18/19 at 15:15 Ondansetron HCl (Zofran) 4 mg PRN Q6HRS PRN IV NAUSEA/VOMITING Last administered on 09/19/19 05:04; Start 09/18/19 at 16:00 Metoprolol Tartrate (Lopressor) 50 mg BID PO Last administered on 09/19/19 20:27; Start 09/18/19 at 21:00 Amlodipine Besylate (Norvasc) 2.5 mg DAILY PO Last administered on 09/19/19 17:10; Start 09/19/19 at 09:00 Enoxaparin Sodium (Lovenox 30mg Syringe) 30 mg Q24H SQ Last administered on 09/18/19 16:38; Start 09/18/19 at 16:15; Stop 09/19/19 at 16:49; Status DC Ketorolac Tromethamine (Toradol 15mg Vial) 15 mg 1X ONCE IVP Last administered on 09/19/19 09:45; Start 09/19/19 at 08:30; Stop 09/19/19 at 08:48; Status DC Prochlorperazine Edisylate (Compazine) 10 mg PRN Q6HRS PRN IV NAUSEA/VOMITING Last administered on 09/19/19 10:18; Start 09/19/19 at 10:15 Prochlorperazine Edisylate (Compazine) 5 mg PRN Q6HRS PRN IV NAUSEA/VOMITING; Start 09/19/19 at 10:15 Ringer's Solution 1,000 ml @ 100 mls/hr Q10H IV Last administered on 09/20/19at 00:15; Start 09/19/19 at 13:30 Propofol 20 ml @ As Directed STK-MED ONCE IV ; Start 09/19/19 at 13:33; Stop 09/19/19 at 13:34; Status DC Lidocaine HCl (Lidocaine Pf 2% Vial) 5 ml STK-MED ONCE .ROUTE ; Start 09/19/19 at 13:33; Stop 09/19/19 at 13:34; Status DC Ondansetron HCl (Zofran) 4 mg STK-MED ONCE .ROUTE ; Start 09/19/19 at 13:33; Stop 09/19/19 at 13:34; Status DC Dexamethasone Sodium Phosphate (Decadron) 4 mg STK-MED ONCE .ROUTE ; Start 09/19/19 at 13:33; Stop 09/19/19 at 13:34; Status DC Succinylcholine Chloride (Anectine) 200 mg STK-MED ONCE .ROUTE ; Start 09/19/19 at 13:33; Stop 09/19/19 at 13:34; Status DC Sevoflurane (Ultane) 60 ml STK-MED ONCE IH ; Start 09/19/19 at 13:35; Stop 09/19/19 at 13:35; Status DC Iohexol (Omnipaque 300 Mg/ml) 100 ml STK-MED ONCE .ROUTE ; Start 09/19/19 at 14:41; Stop 09/19/19 at 14:41; Status DC Levofloxacin/ Dextrose 100 ml @ As Directed STK-MED ONCE IV ; Start 09/19/19 at 15:16; Stop 09/19/19 at 15:16; Status DC Levofloxacin/ Dextrose 100 ml @ 100 mls/hr 1X ONCE IV Last administered on 09/19/19at 15:18; Start 09/19/19 at 15:30; Stop 09/19/19 at 16:29; Status DC Levofloxacin/ Dextrose 100 ml @ 100 mls/hr Q24H IV ; Start 09/20/19 at 16:00 Iohexol (Omnipaque 300 Mg/ml) 50 ml STK-MED ONCE INT CAT Last administered on 09/19/19at 15:25; Start 09/19/19 at 15:25; Stop 09/19/19 at 16:34; Status DC Enoxaparin Sodium (Lovenox 40mg Syringe) 40 mg Q24H SQ ; Start 09/19/19 at 17:00 Active Scripts Active Reported Hydrochlorothiazide Tablet (Hydrochlorothiazide) 12.5 Mg Tablet 12.5 Mg PO DAILY Amlodipine Besylate 2.5 Mg Tablet 2.5 Mg PO DAILY Last dose given: 9:00 a.m. Next dose due: 12-19-14 9:00 a.m. Lisinopril 20 Mg Tablet 40 Mg PO DAILY06 Last dose given: 9:00 a.m. Next dose due: 12-19-14 Metoprolol Tartrate 50 Mg Tablet 50 Mg PO BID Last dose given: 9:00 a.m. Next dose due: tonight Vitals/I & O Vital Sign - Last 24 Hours 09/19/19 09/19/19 09/19/19 09/19/19 11:00 13:15 13:17 15:53 Temp 97.6 97.4 97.3 97.6 97.4 97.3 Pulse 79 70 79 Resp 20 18 20 B/P (MAP) 108/53 (71) 137/63 Pulse Ox 91 94 98 O2 Delivery Room Air Room Air Simple Mask 09/19/19 09/19/19 09/19/19 09/19/19 16:08 16:21 17:10 19:00 Temp 97.3 97.4 97.3 97.4 Pulse 86 82 82 79 Resp 20 18 18 B/P (MAP) 145/68 145/69 145/69 130/65 (86) Pulse Ox 93 93 92 O2 Delivery Room Air Room Air Room Air 09/19/19 09/19/19 09/19/19 09/20/19 20:27 20:30 23:01 00:17 Temp 97.6 97.6 Pulse 79 65 Resp 18 20 B/P (MAP) 130/65 111/57 (75) Pulse Ox 92 O2 Delivery Room Air Room Air Room Air 09/20/19 09/20/19 09/20/19 09/20/19 00:47 03:01 06:26 06:56 Temp 97.6 97.6 Pulse 69 Resp 20 18 20 20 B/P (MAP) 151/76 (101) Pulse Ox 94 O2 Delivery Room Air Room Air Room Air Room Air 09/20/19 07:00 Temp 98.3 98.3 Pulse 77 Resp 20 B/P (MAP) 152/68 (96) Pulse Ox 94 O2 Delivery Room Air Intake and Output 09/19/19 09/19/19 09/20/19 15:00 23:00 07:00 Intake Total 0 ml 0 ml 900 ml Balance 0 ml 0 ml 900 ml KSENIA CHU MD Sep 20, 2019 08:16
[2019-09-20] MEDS: METOPROLOL TART IMMED RELEASE 50 MG TABLET. PO SCH ×2 (10:03→21:18)
[2019-09-20] MEDS: HYDROmorphone 2 MG/ML VIAL IV PRN ×2 (10:03→13:59)
[2019-09-20] MEDS: amLODIPine BESYLATE 5 MG TABLET PO SCH (10:04)
[2019-09-20 11:00] VITALS: BP 160/76
[2019-09-20] MEDS ORDERED: ePHEDrine PF IN SALINE 50 MG/10 ML SYRINGE. IV ONE (12:00)
--- NOTE | 2019-09-20 13:28 | PDOC ---
G I PROGRESS NOTE Subjective Still very uncomfortable. Objective Surgical sonsult pending. Physical Exam Lungs clear. RRR Abdomen soft, tender RUQ, palpable GB? Review of Relevant I have reviewed the following items tatianna (where applicable) has been applied. Labs Laboratory Tests Test 09/19/19 04:30 09/20/19 06:30 White Blood Count 12.0 x10^3/uL (4.0-11.0) 20.1 x10^3/uL (4.0-11.0) Red Blood Count 4.17 x10^6/uL (3.50-5.40) 3.68 x10^6/uL (3.50-5.40) Hemoglobin 12.5 g/dL (12.0-15.5) 11.0 g/dL (12.0-15.5) Hematocrit 38.2 % (36.0-47.0) 34.1 % (36.0-47.0) Mean Corpuscular Volume 92 fL (79-100) 93 fL (79-100) Mean Corpuscular Hemoglobin 30 pg (25-35) 30 pg (25-35) Mean Corpuscular Hemoglobin Concent 33 g/dL (31-37) 32 g/dL (31-37) Red Cell Distribution Width 13.2 % (11.5-14.5) 13.6 % (11.5-14.5) Platelet Count 377 x10^3/uL (140-400) 303 x10^3/uL (140-400) Neutrophils (%) (Auto) 90 % (31-73) 88 % (31-73) Lymphocytes (%) (Auto) 7 % (24-48) 7 % (24-48) Monocytes (%) (Auto) 2 % (0-9) 4 % (0-9) Eosinophils (%) (Auto) 1 % (0-3) 0 % (0-3) Basophils (%) (Auto) 1 % (0-3) 0 % (0-3) Neutrophils # (Auto) 10.8 x10^3/uL (1.8-7.7) 17.7 x10^3/uL (1.8-7.7) Lymphocytes # (Auto) 0.8 x10^3/uL (1.0-4.8) 1.4 x10^3/uL (1.0-4.8) Monocytes # (Auto) 0.3 x10^3/uL (0.0-1.1) 0.9 x10^3/uL (0.0-1.1) Eosinophils # (Auto) 0.2 x10^3/uL (0.0-0.7) 0.0 x10^3/uL (0.0-0.7) Basophils # (Auto) 0.1 x10^3/uL (0.0-0.2) 0.0 x10^3/uL (0.0-0.2) Sodium Level 145 mmol/L (136-145) 147 mmol/L (136-145) Potassium Level 4.0 mmol/L (3.5-5.1) 4.9 mmol/L (3.5-5.1) Chloride Level 108 mmol/L (98-107) 109 mmol/L (98-107) Carbon Dioxide Level 29 mmol/L (21-32) 27 mmol/L (21-32) Anion Gap 8 (6-14) 11 (6-14) Blood Urea Nitrogen 28 mg/dL (7-20) 34 mg/dL (7-20) Creatinine 1.3 mg/dL (0.6-1.0) 1.5 mg/dL (0.6-1.0) Estimated GFR (Cockcroft-Gault) 40.2 34.0 BUN/Creatinine Ratio 22 (6-20) 23 (6-20) Glucose Level 132 mg/dL (70-99) 109 mg/dL (70-99) Calcium Level 9.1 mg/dL (8.5-10.1) 8.3 mg/dL (8.5-10.1) Total Bilirubin 3.0 mg/dL (0.2-1.0) 2.7 mg/dL (0.2-1.0) Aspartate Amino Transf (AST/SGOT) 914 U/L (15-37) 315 U/L (15-37) Alanine Aminotransferase (ALT/SGPT) 701 U/L (14-59) 502 U/L (14-59) Alkaline Phosphatase 298 U/L (46-116) 339 U/L (46-116) Total Protein 7.1 g/dL (6.4-8.2) 5.8 g/dL (6.4-8.2) Albumin 2.9 g/dL (3.4-5.0) 2.6 g/dL (3.4-5.0) Albumin/Globulin Ratio 0.7 (1.0-1.7) 0.8 (1.0-1.7) Lipase 234 U/L (73-393) 181 U/L (73-393) Amylase Level 66 U/L (25-115) Laboratory Tests Test 09/20/19 06:30 White Blood Count 20.1 x10^3/uL (4.0-11.0) Red Blood Count 3.68 x10^6/uL (3.50-5.40) Hemoglobin 11.0 g/dL (12.0-15.5) Hematocrit 34.1 % (36.0-47.0) Mean Corpuscular Volume 93 fL (79-100) Mean Corpuscular Hemoglobin 30 pg (25-35) Mean Corpuscular Hemoglobin Concent 32 g/dL (31-37) Red Cell Distribution Width 13.6 % (11.5-14.5) Platelet Count 303 x10^3/uL (140-400) Neutrophils (%) (Auto) 88 % (31-73) Lymphocytes (%) (Auto) 7 % (24-48) Monocytes (%) (Auto) 4 % (0-9) Eosinophils (%) (Auto) 0 % (0-3) Basophils (%) (Auto) 0 % (0-3) Neutrophils # (Auto) 17.7 x10^3/uL (1.8-7.7) Lymphocytes # (Auto) 1.4 x10^3/uL (1.0-4.8) Monocytes # (Auto) 0.9 x10^3/uL (0.0-1.1) Eosinophils # (Auto) 0.0 x10^3/uL (0.0-0.7) Basophils # (Auto) 0.0 x10^3/uL (0.0-0.2) Sodium Level 147 mmol/L (136-145) Potassium Level 4.9 mmol/L (3.5-5.1) Chloride Level 109 mmol/L (98-107) Carbon Dioxide Level 27 mmol/L (21-32) Anion Gap 11 (6-14) Blood Urea Nitrogen 34 mg/dL (7-20) Creatinine 1.5 mg/dL (0.6-1.0) Estimated GFR (Cockcroft-Gault) 34.0 BUN/Creatinine Ratio 23 (6-20) Glucose Level 109 mg/dL (70-99) Calcium Level 8.3 mg/dL (8.5-10.1) Total Bilirubin 2.7 mg/dL (0.2-1.0) Aspartate Amino Transf (AST/SGOT) 315 U/L (15-37) Alanine Aminotransferase (ALT/SGPT) 502 U/L (14-59) Alkaline Phosphatase 339 U/L (46-116) Total Protein 5.8 g/dL (6.4-8.2) Albumin 2.6 g/dL (3.4-5.0) Albumin/Globulin Ratio 0.8 (1.0-1.7) Amylase Level 66 U/L (25-115) Lipase 181 U/L (73-393) LFT's better, still elevated. Bili normal. Vitals/I & O Vital Sign - Last 24 Hours 09/19/19 09/19/19 09/19/19 09/19/19 15:53 16:08 16:21 17:10 Temp 97.3 97.3 97.3 97.3 Pulse 79 86 82 82 Resp 20 20 18 B/P (MAP) 137/63 145/68 145/69 145/69 Pulse Ox 98 93 93 O2 Delivery Simple Mask Room Air Room Air 09/19/19 09/19/19 09/19/19 09/19/19 19:00 20:27 20:30 23:01 Temp 97.4 97.6 97.4 97.6 Pulse 79 79 65 Resp 18 18 B/P (MAP) 130/65 (86) 130/65 111/57 (75) Pulse Ox 92 92 O2 Delivery Room Air Room Air Room Air 09/20/19 09/20/19 09/20/19 09/20/19 00:17 00:47 03:01 06:26 Temp 97.6 97.6 Pulse 69 Resp 20 20 18 20 B/P (MAP) 151/76 (101) Pulse Ox 94 O2 Delivery Room Air Room Air Room Air Room Air 11/30/09/20/19 09/20/19 09/20/19 06:56 07:00 08:00 10:03 Temp 98.3 98.3 Pulse 77 77 Resp 20 20 B/P (MAP) 152/68 (96) 152/68 Pulse Ox 94 O2 Delivery Room Air Room Air Room Air 09/20/19 09/20/19 09/20/19 09/20/19 10:03 10:04 10:33 11:00 Temp 98.0 98.0 Pulse 77 91 Resp 16 B/P (MAP) 152/68 160/76 (104) Pulse Ox 93 O2 Delivery Room Air Room Air Nasal Cannula O2 Flow Rate 3.0 Intake and Output 09/19/19 09/19/19 09/20/19 15:00 23:00 07:00 Intake Total 0 ml 0 ml 900 ml Balance 0 ml 0 ml 900 ml Remains afebrile. Problem List Problems Medical Problems: (1) Acute hepatitis Status: Acute (2) Acute kidney injury Status: Acute (3) Dehydration Status: Acute Assessment Choledocholithiasis, s/p ERCP/stone extractions. Cholelithiasis, now itis? Plan of Care: Continue current Tx, Mgmt Plan of Care Note Await surgical opinion. Needs basil. MARCELA CLEMENTS MD Sep 20, 2019 13:28
--- NOTE | 2019-09-20 13:45 | PDOC2 ---
CONSULT Date of Consult Date of Consult DATE: 09/20/19 TIME: 13:36 Reason for Consult Reason for Consult: cholangitis Referring Physician Referring Physician: Dr Connelly Identification/Chief Complaint Chief Complaint abdominal pain Source Source: Chart review, Patient History of Present Illness Reason for Visit: 2 weeks of intermittent pain, this last week a lot of nausea, pain worse on Sunday after cheeseburger. Vomiting significantly Underwent ERCP last night, reviewed op findings Initially postop ERCP improved, now with pain again Past Medical History Cardiovascular: HTN Past Surgical History Past Surgical History: Appendectomy, Total knee replacement (L) Family History Family History: High Cholestrol, Hypertension Social History No ALCOHOL: none Drugs: None Current Problem List Problem List Problems Medical Problems: (1) Acute hepatitis Status: Acute (2) Acute kidney injury Status: Acute (3) Dehydration Status: Acute Current Medications Current Medications Current Medications Fentanyl Citrate (Fentanyl 2ml Vial) 25 mcg PRN Q15MIN PRN IV PAIN GREATER THAN 3/10 Last administered on 09/18/19at 09:06; Start 09/18/19 at 08:45; Stop 09/18/19 at 15:21; Status DC Sodium Chloride 1,000 ml @ 1,000 mls/hr Q1H IV Last administered on 09/18/19at 09:05; Start 09/18/19 at 08:43; Stop 09/18/19 at 09:42; Status DC Ondansetron HCl (Zofran) 4 mg 1X ONCE IV Last administered on 09/18/19at 09:06; Start 09/18/19 at 08:45; Stop 09/18/19 at 08:46; Status DC Ondansetron HCl (Zofran) 4 mg 1X ONCE IV Last administered on 09/18/19at 12:34; Start 09/18/19 at 12:30; Stop 09/18/19 at 12:35; Status DC Ondansetron HCl (Zofran) 4 mg PRN Q8HRS PRN IV NAUSEA/VOMITING Last administered on 09/18/19at 15:48; Start 09/18/19 at 13:00; Stop 09/18/19 at 16:08; Status DC Sodium Chloride 1,000 ml @ 125 mls/hr Q8H IV Last administered on 09/19/19at 17:11; Start 09/18/19 at 12:47; Stop 09/19/19 at 12:46; Status DC Morphine Sulfate (Morphine Sulfate) 2 mg PRN Q4HRS PRN IV PAIN Last administered on 09/20/19at 06:26; Start 09/18/19 at 15:15; Stop 09/20/19 at 09:53; Status DC Ondansetron HCl (Zofran) 4 mg PRN Q6HRS PRN IV NAUSEA/VOMITING Last administered on 09/19/19at 05:04; Start 09/18/19 at 16:00 Metoprolol Tartrate (Lopressor) 50 mg BID PO Last administered on 09/20/19 10:03; Start 09/18/19 at 21:00 Amlodipine Besylate (Norvasc) 2.5 mg DAILY PO Last administered on 09/20/19 10:04; Start 09/19/19 at 09:00 Enoxaparin Sodium (Lovenox 30mg Syringe) 30 mg Q24H SQ Last administered on 09/18/19at 16:38; Start 09/18/19 at 16:15; Stop 09/19/19 at 16:49; Status DC Ketorolac Tromethamine (Toradol 15mg Vial) 15 mg 1X ONCE IVP Last administered on 09/19/19at 09:45; Start 09/19/19 at 08:30; Stop 09/19/19 at 08:48; Status DC Prochlorperazine Edisylate (Compazine) 10 mg PRN Q6HRS PRN IV NAUSEA/VOMITING Last administered on 09/19/19at 10:18; Start 09/19/19 at 10:15 Prochlorperazine Edisylate (Compazine) 5 mg PRN Q6HRS PRN IV NAUSEA/VOMITING; Start 09/19/19 at 10:15 Ringer's Solution 1,000 ml @ 100 mls/hr Q10H IV Last administered on 09/20/19at 10:09; Start 09/19/19 at 13:30 Propofol 20 ml @ As Directed STK-MED ONCE IV ; Start 09/19/19 at 13:33; Stop 09/19/19 at 13:34; Status DC Lidocaine HCl (Lidocaine Pf 2% Vial) 5 ml STK-MED ONCE .ROUTE ; Start 09/19/19 at 13:33; Stop 09/19/19 at 13:34; Status DC Ondansetron HCl (Zofran) 4 mg STK-MED ONCE .ROUTE ; Start 09/19/19 at 13:33; Stop 09/19/19 at 13:34; Status DC Dexamethasone Sodium Phosphate (Decadron) 4 mg STK-MED ONCE .ROUTE ; Start 09/19/19 at 13:33; Stop 09/19/19 at 13:34; Status DC Succinylcholine Chloride (Anectine) 200 mg STK-MED ONCE .ROUTE ; Start 09/19/19 at 13:33; Stop 09/19/19 at 13:34; Status DC Sevoflurane (Ultane) 60 ml STK-MED ONCE IH ; Start 09/19/19 at 13:35; Stop 09/19/19 at 13:35; Status DC Iohexol (Omnipaque 300 Mg/ml) 100 ml STK-MED ONCE .ROUTE ; Start 09/19/19 at 14:41; Stop 09/19/19 at 14:41; Status DC Levofloxacin/ Dextrose 100 ml @ As Directed STK-MED ONCE IV ; Start 09/19/19 at 15:16; Stop 09/19/19 at 15:16; Status DC Levofloxacin/ Dextrose 100 ml @ 100 mls/hr 1X ONCE IV Last administered on 09/19/19at 15:18; Start 09/19/19 at 15:30; Stop 09/19/19 at 16:29; Status DC Levofloxacin/ Dextrose 100 ml @ 100 mls/hr Q24H IV ; Start 09/20/19 at 16:00 Iohexol (Omnipaque 300 Mg/ml) 50 ml STK-MED ONCE INT CAT Last administered on 09/19/19at 15:25; Start 09/19/19 at 15:25; Stop 09/19/19 at 16:34; Status DC Enoxaparin Sodium (Lovenox 40mg Syringe) 40 mg Q24H SQ ; Start 09/19/19 at 17:00 Hydromorphone HCl (Dilaudid) 1 mg PRN Q2HR PRN IV PAIN Last administered on 09/20/19at 10:03; Start 09/20/19 at 10:00 Active Scripts Active Reported Hydrochlorothiazide Tablet (Hydrochlorothiazide) 12.5 Mg Tablet 12.5 Mg PO DAILY Amlodipine Besylate 2.5 Mg Tablet 2.5 Mg PO DAILY Last dose given: 9:00 a.m. Next dose due: 12-19-14 9:00 a.m. Lisinopril 20 Mg Tablet 40 Mg PO DAILY06 Last dose given: 9:00 a.m. Next dose due: 12-19-14 Metoprolol Tartrate 50 Mg Tablet 50 Mg PO BID Last dose given: 9:00 a.m. Next dose due: tonight Allergies Allergies: Coded Allergies: nickel (Verified Allergy, Intermediate, REDNESS AND SWELLING, METAL, 09/19/19) acetaminophen (Verified Adverse Reaction, Intermediate, NAUSEA AND VOMITING, 09/19/19) hydrocodone (Verified Adverse Reaction, Mild, NAUSEA AND VOMITING, 09/19/19) ROS General: YES: Appetite (low); No: Chills, Other (fevers ) PSYCHOLOGICAL ROS: No: Anxiety, Depression Eyes: No Blurry vision, No Double vision HEENT: No: Heacaches, Sore Throat Hematological and Lymphatic: No: Bleeding Problems, Blood Clots Respiratory: No: Cough, Shortness of breath Cardiovascular: No Chest Pain, No Palpitations Gastrointestinal: Yes Other (see hpi) Genitourinary: No Dysuria, No Hematuria Musculoskeletal: No Joint Pain, No Muscle Pain Neurological: No Confusion, No Impaired Coord/balance Skin: No Pruritus, No Rash Physical Exam General: Alert, Oriented X3, Cooperative HEENT: Atraumatic, PERRLA Lungs: Clear to auscultation, Normal air movement Heart: Regular rate, Normal S1, Normal S2 Abdomen: Soft, Other (moderate TTP epigastric, RUQ , midline scar from appendectomy ) Extremities: No clubbing, No cyanosis Skin: No rashes, No breakdown Neuro: Normal gait, Normal speech Psych/Mental Status: Mental status NL, Mood NL MUSCULOSKELETAL: No deformity, No swelling Vitals VITALS Vital Signs Date Time Temp Pulse Resp B/P (MAP) Pulse Ox O2 Delivery O2 Flow Rate FiO2 09/20/19 11:00 98.0 91 16 160/76 (104) 93 Nasal Cannula 3.0 98.0 Labs Labs Laboratory Tests Test 09/19/19 04:30 09/20/19 06:30 White Blood Count 12.0 x10^3/uL (4.0-11.0) 20.1 x10^3/uL (4.0-11.0) Red Blood Count 4.17 x10^6/uL (3.50-5.40) 3.68 x10^6/uL (3.50-5.40) Hemoglobin 12.5 g/dL (12.0-15.5) 11.0 g/dL (12.0-15.5) Hematocrit 38.2 % (36.0-47.0) 34.1 % (36.0-47.0) Mean Corpuscular Volume 92 fL (79-100) 93 fL (79-100) Mean Corpuscular Hemoglobin 30 pg (25-35) 30 pg (25-35) Mean Corpuscular Hemoglobin Concent 33 g/dL (31-37) 32 g/dL (31-37) Red Cell Distribution Width 13.2 % (11.5-14.5) 13.6 % (11.5-14.5) Platelet Count 377 x10^3/uL (140-400) 303 x10^3/uL (140-400) Neutrophils (%) (Auto) 90 % (31-73) 88 % (31-73) Lymphocytes (%) (Auto) 7 % (24-48) 7 % (24-48) Monocytes (%) (Auto) 2 % (0-9) 4 % (0-9) Eosinophils (%) (Auto) 1 % (0-3) 0 % (0-3) Basophils (%) (Auto) 1 % (0-3) 0 % (0-3) Neutrophils # (Auto) 10.8 x10^3/uL (1.8-7.7) 17.7 x10^3/uL (1.8-7.7) Lymphocytes # (Auto) 0.8 x10^3/uL (1.0-4.8) 1.4 x10^3/uL (1.0-4.8) Monocytes # (Auto) 0.3 x10^3/uL (0.0-1.1) 0.9 x10^3/uL (0.0-1.1) Eosinophils # (Auto) 0.2 x10^3/uL (0.0-0.7) 0.0 x10^3/uL (0.0-0.7) Basophils # (Auto) 0.1 x10^3/uL (0.0-0.2) 0.0 x10^3/uL (0.0-0.2) Sodium Level 145 mmol/L (136-145) 147 mmol/L (136-145) Potassium Level 4.0 mmol/L (3.5-5.1) 4.9 mmol/L (3.5-5.1) Chloride Level 108 mmol/L (98-107) 109 mmol/L (98-107) Carbon Dioxide Level 29 mmol/L (21-32) 27 mmol/L (21-32) Anion Gap 8 (6-14) 11 (6-14) Blood Urea Nitrogen 28 mg/dL (7-20) 34 mg/dL (7-20) Creatinine 1.3 mg/dL (0.6-1.0) 1.5 mg/dL (0.6-1.0) Estimated GFR (Cockcroft-Gault) 40.2 34.0 BUN/Creatinine Ratio 22 (6-20) 23 (6-20) Glucose Level 132 mg/dL (70-99) 109 mg/dL (70-99) Calcium Level 9.1 mg/dL (8.5-10.1) 8.3 mg/dL (8.5-10.1) Total Bilirubin 3.0 mg/dL (0.2-1.0) 2.7 mg/dL (0.2-1.0) Aspartate Amino Transf (AST/SGOT) 914 U/L (15-37) 315 U/L (15-37) Alanine Aminotransferase (ALT/SGPT) 701 U/L (14-59) 502 U/L (14-59) Alkaline Phosphatase 298 U/L (46-116) 339 U/L (46-116) Total Protein 7.1 g/dL (6.4-8.2) 5.8 g/dL (6.4-8.2) Albumin 2.9 g/dL (3.4-5.0) 2.6 g/dL (3.4-5.0) Albumin/Globulin Ratio 0.7 (1.0-1.7) 0.8 (1.0-1.7) Lipase 234 U/L (73-393) 181 U/L (73-393) Amylase Level 66 U/L (25-115) Laboratory Tests Test 09/20/19 06:30 White Blood Count 20.1 x10^3/uL (4.0-11.0) Red Blood Count 3.68 x10^6/uL (3.50-5.40) Hemoglobin 11.0 g/dL (12.0-15.5) Hematocrit 34.1 % (36.0-47.0) Mean Corpuscular Volume 93 fL (79-100) Mean Corpuscular Hemoglobin 30 pg (25-35) Mean Corpuscular Hemoglobin Concent 32 g/dL (31-37) Red Cell Distribution Width 13.6 % (11.5-14.5) Platelet Count 303 x10^3/uL (140-400) Neutrophils (%) (Auto) 88 % (31-73) Lymphocytes (%) (Auto) 7 % (24-48) Monocytes (%) (Auto) 4 % (0-9) Eosinophils (%) (Auto) 0 % (0-3) Basophils (%) (Auto) 0 % (0-3) Neutrophils # (Auto) 17.7 x10^3/uL (1.8-7.7) Lymphocytes # (Auto) 1.4 x10^3/uL (1.0-4.8) Monocytes # (Auto) 0.9 x10^3/uL (0.0-1.1) Eosinophils # (Auto) 0.0 x10^3/uL (0.0-0.7) Basophils # (Auto) 0.0 x10^3/uL (0.0-0.2) Sodium Level 147 mmol/L (136-145) Potassium Level 4.9 mmol/L (3.5-5.1) Chloride Level 109 mmol/L (98-107) Carbon Dioxide Level 27 mmol/L (21-32) Anion Gap 11 (6-14) Blood Urea Nitrogen 34 mg/dL (7-20) Creatinine 1.5 mg/dL (0.6-1.0) Estimated GFR (Cockcroft-Gault) 34.0 BUN/Creatinine Ratio 23 (6-20) Glucose Level 109 mg/dL (70-99) Calcium Level 8.3 mg/dL (8.5-10.1) Total Bilirubin 2.7 mg/dL (0.2-1.0) Aspartate Amino Transf (AST/SGOT) 315 U/L (15-37) Alanine Aminotransferase (ALT/SGPT) 502 U/L (14-59) Alkaline Phosphatase 339 U/L (46-116) Total Protein 5.8 g/dL (6.4-8.2) Albumin 2.6 g/dL (3.4-5.0) Albumin/Globulin Ratio 0.8 (1.0-1.7) Amylase Level 66 U/L (25-115) Lipase 181 U/L (73-393) Assessment/Plan Assessment/Plan cholangitis s/p ERCP WBC 20 continue abx fluids, Cr 1.5 lfts improved plan basil in AM GEOVANI MARINELLI ENROLLER Sep 20, 2019 13:45
[2019-09-20 15:00] VITALS: BP 143/67
[2019-09-20] MEDS: ENOXAPARIN 40 MG/0.4 ML SYRINGE. SQ SCH (17:00)
--- NOTE | 2019-09-20 17:00 | NUR ---
liliana Jorgensen in the am scheduled.
[2019-09-20 19:00] VITALS: BP 154/69
[2019-09-20 23:00] VITALS: BP 110/63
[2019-09-21] VITALS (10 sets, daily range): BP systolic 120–191; BP diastolic 54–96
[2019-09-21] MEDS: IV RINGERS,LACTATED 1000ML 1,000 ML IV SCH ×2 (06:35→12:42)
--- NOTE | 2019-09-21 08:49 | PDOC ---
PROGRESS NOTES Chief Complaint Chief Complaint A/P: Choledocholithiasis - with Intractable abdominal pain - non-remitting, has acute hepatitis by labs. S/p ERCP 09/19 Nausea and vomiting - possibly gastroenteritis, definitely with a mild pancreatitis and hepatitis 2/2 choledocholithiasis. Will give anti-emetics, pain control. Bowel rest. GI for ERCP NADIR - vasomotor nephropathy likely 2/2 vomiting and poor recent PO intake, will hydrate Hyperglycemia - likely reactive, will trend Acute transaminitis - as above, consult GI. NPO, trend LFTs. RUQ imaging via US confirms choledocholithiasis Leukocytosis - with tachycardia, she has SIRS, this is likely reactive given her recent vomiting, possibly also having a viral gastroenteritis, will trend. Will initiate antibiotics Non-obstructive left nephrolithiasis - unlikely culprit given her current lo cation of pain FEN - NPO PPX - Lovenox 30 mg FULL CODE Dispo - inpatient for N/V, likely 2 midnights. History of Present Illness History of Present Illness Ms Zapata is a 74-year-old female with PMHx HTN who presents with complaint of upper mid-epigastric abdominal pain that started night before Thanks[place]. Patient states that she has had a few episodes of nausea with vomiting. She had eaten a cheeseburger at a local casino prior to this episode and has been having this issue with abdominal pain for the past 5 days which has progressed and now is constant. 2 weeks ago she had similar pain and nausea, relegated to her left upper quadrant that she compared to morning sickness. She was seen in urgent care at that time and given a PPI and antiemetic and improved until 5 days ago. No recent travel or sick contacts, no well water exposure. No diarrhea. She states that her last normal bowel movement was yesterday and states that she has been passing some gas during her pain. She rates the pain at an 8 out of 10. She states that the pain is worsened with movement and with palpation. She also denies any fever. In ED found with WBC of 12, BUN 47, Cr 1.6, Lipase 473, AST 656, ALT 323. Bilirubin 1. CT abdomen pelvis performed without contrast showing non- obstructive left renal calculus, diverticulosis, otherwise no acute process. She is UTD on colonoscopy screening. 09/19: RUQ US reveals choledocholithiasis with CBD 1.2cm and multiple stones. LFTs elevating today. A little jaundiced. still with abdominal pain, nausea and vomiting. ERCP with stone extraction and sphincterotomy LFTs up, lipase WNL. WBC 20 today. On levaquin. Plan for surgical consultation. Her pain is not well controlled with morphine. Plan: Dilaudid 1mg Consult general surgery Vitals Vitals Vital Signs Date Time Temp Pulse Resp B/P (MAP) Pulse Ox O2 Delivery O2 Flow Rate FiO2 09/21/19 08:00 97.7 90 18 167/64 (98) 91 Nasal Cannula 2.0 97.7 Physical Exam General: Alert, Oriented X3, Cooperative Heart: Regular rate, Normal S1, Normal S2 Lungs: Clear Abdomen: Soft, Other (moderate TTP epigastric, RUQ , midline scar from appendectomy ) Extremities: No clubbing, No cyanosis Skin: No rashes, No breakdown Assessment and Plan Assessmemt and Plan Problems Medical Problems: (1) Acute hepatitis Status: Acute (2) Acute kidney injury Status: Acute (3) Dehydration Status: Acute Comment Review of Relevant I have reviewed the following items tatianna (where applicable) has been applied. Labs Laboratory Tests Test 09/20/19 06:30 White Blood Count 20.1 x10^3/uL (4.0-11.0) Red Blood Count 3.68 x10^6/uL (3.50-5.40) Hemoglobin 11.0 g/dL (12.0-15.5) Hematocrit 34.1 % (36.0-47.0) Mean Corpuscular Volume 93 fL (79-100) Mean Corpuscular Hemoglobin 30 pg (25-35) Mean Corpuscular Hemoglobin Concent 32 g/dL (31-37) Red Cell Distribution Width 13.6 % (11.5-14.5) Platelet Count 303 x10^3/uL (140-400) Neutrophils (%) (Auto) 88 % (31-73) Lymphocytes (%) (Auto) 7 % (24-48) Monocytes (%) (Auto) 4 % (0-9) Eosinophils (%) (Auto) 0 % (0-3) Basophils (%) (Auto) 0 % (0-3) Neutrophils # (Auto) 17.7 x10^3/uL (1.8-7.7) Lymphocytes # (Auto) 1.4 x10^3/uL (1.0-4.8) Monocytes # (Auto) 0.9 x10^3/uL (0.0-1.1) Eosinophils # (Auto) 0.0 x10^3/uL (0.0-0.7) Basophils # (Auto) 0.0 x10^3/uL (0.0-0.2) Sodium Level 147 mmol/L (136-145) Potassium Level 4.9 mmol/L (3.5-5.1) Chloride Level 109 mmol/L (98-107) Carbon Dioxide Level 27 mmol/L (21-32) Anion Gap 11 (6-14) Blood Urea Nitrogen 34 mg/dL (7-20) Creatinine 1.5 mg/dL (0.6-1.0) Estimated GFR (Cockcroft-Gault) 34.0 BUN/Creatinine Ratio 23 (6-20) Glucose Level 109 mg/dL (70-99) Calcium Level 8.3 mg/dL (8.5-10.1) Total Bilirubin 2.7 mg/dL (0.2-1.0) Aspartate Amino Transf (AST/SGOT) 315 U/L (15-37) Alanine Aminotransferase (ALT/SGPT) 502 U/L (14-59) Alkaline Phosphatase 339 U/L (46-116) Total Protein 5.8 g/dL (6.4-8.2) Albumin 2.6 g/dL (3.4-5.0) Albumin/Globulin Ratio 0.8 (1.0-1.7) Amylase Level 66 U/L (25-115) Lipase 181 U/L (73-393) Microbiology 09/18/19 Urine Culture - Final, Complete 09/18/19 Urine Culture Result 1 (KARLA) - Final, Complete Medications Current Medications Fentanyl Citrate (Fentanyl 2ml Vial) 25 mcg PRN Q15MIN PRN IV PAIN GREATER THAN 3/10 Last administered on 09/18/19at 09:06; Start 09/18/19 at 08:45; Stop 09/18/19 at 15:21; Status DC Sodium Chloride 1,000 ml @ 1,000 mls/hr Q1H IV Last administered on 09/18/19at 09:05; Start 09/18/19 at 08:43; Stop 09/18/19 at 09:42; Status DC Ondansetron HCl (Zofran) 4 mg 1X ONCE IV Last administered on 09/18/19at 09:06; Start 09/18/19 at 08:45; Stop 09/18/19 at 08:46; Status DC Ondansetron HCl (Zofran) 4 mg 1X ONCE IV Last administered on 09/18/19at 12:34; Start 09/18/19 at 12:30; Stop 09/18/19 at 12:35; Status DC Ondansetron HCl (Zofran) 4 mg PRN Q8HRS PRN IV NAUSEA/VOMITING Last administered on 09/18/19at 15:48; Start 09/18/19 at 13:00; Stop 09/18/19 at 16:08; Status DC Sodium Chloride 1,000 ml @ 125 mls/hr Q8H IV Last administered on 09/19/19at 17:11; Start 09/18/19 at 12:47; Stop 09/19/19 at 12:46; Status DC Morphine Sulfate (Morphine Sulfate) 2 mg PRN Q4HRS PRN IV PAIN Last administered on 09/20/19 06:26; Start 09/18/19 at 15:15; Stop 09/20/19 at 09:53; Status DC Ondansetron HCl (Zofran) 4 mg PRN Q6HRS PRN IV NAUSEA/VOMITING Last administered on 09/19/19 05:04; Start 09/18/19 at 16:00 Metoprolol Tartrate (Lopressor) 50 mg BID PO Last administered on 09/20/19 21:18; Start 09/18/19 at 21:00 Amlodipine Besylate (Norvasc) 2.5 mg DAILY PO Last administered on 09/20/19 10:04; Start 09/19/19 at 09:00 Enoxaparin Sodium (Lovenox 30mg Syringe) 30 mg Q24H SQ Last administered on 09/18/19at 16:38; Start 09/18/19 at 16:15; Stop 09/19/19 at 16:49; Status DC Ketorolac Tromethamine (Toradol 15mg Vial) 15 mg 1X ONCE IVP Last administered on 09/19/19at 09:45; Start 09/19/19 at 08:30; Stop 09/19/19 at 08:48; Status DC Prochlorperazine Edisylate (Compazine) 10 mg PRN Q6HRS PRN IV NAUSEA/VOMITING Last administered on 09/19/19at 10:18; Start 09/19/19 at 10:15 Prochlorperazine Edisylate (Compazine) 5 mg PRN Q6HRS PRN IV NAUSEA/VOMITING; Start 09/19/19 at 10:15 Ringer's Solution 1,000 ml @ 100 mls/hr Q10H IV Last administered on 09/21/19at 06:35; Start 09/19/19 at 13:30 Propofol 20 ml @ As Directed STK-MED ONCE IV ; Start 09/19/19 at 13:33; Stop 09/19/19 at 13:34; Status DC Lidocaine HCl (Lidocaine Pf 2% Vial) 5 ml STK-MED ONCE .ROUTE ; Start 09/19/19 at 13:33; Stop 09/19/19 at 13:34; Status DC Ondansetron HCl (Zofran) 4 mg STK-MED ONCE .ROUTE ; Start 09/19/19 at 13:33; Stop 09/19/19 at 13:34; Status DC Dexamethasone Sodium Phosphate (Decadron) 4 mg STK-MED ONCE .ROUTE ; Start 09/19/19 at 13:33; Stop 09/19/19 at 13:34; Status DC Succinylcholine Chloride (Anectine) 200 mg STK-MED ONCE .ROUTE ; Start 09/19/19 at 13:33; Stop 09/19/19 at 13:34; Status DC Sevoflurane (Ultane) 60 ml STK-MED ONCE IH ; Start 09/19/19 at 13:35; Stop 09/19/19 at 13:35; Status DC Iohexol (Omnipaque 300 Mg/ml) 100 ml STK-MED ONCE .ROUTE ; Start 09/19/19 at 14:41; Stop 09/19/19 at 14:41; Status DC Levofloxacin/ Dextrose 100 ml @ As Directed STK-MED ONCE IV ; Start 09/19/19 at 15:16; Stop 09/19/19 at 15:16; Status DC Levofloxacin/ Dextrose 100 ml @ 100 mls/hr 1X ONCE IV Last administered on 09/19/19at 15:18; Start 09/19/19 at 15:30; Stop 09/19/19 at 16:29; Status DC Levofloxacin/ Dextrose 100 ml @ 100 mls/hr Q24H IV ; Start 09/20/19 at 16:00; Stop 09/20/19 at 15:00; Status DC Iohexol (Omnipaque 300 Mg/ml) 50 ml STK-MED ONCE INT CAT Last administered on 09/19/19at 15:25; Start 09/19/19 at 15:25; Stop 09/19/19 at 16:34; Status DC Enoxaparin Sodium (Lovenox 40mg Syringe) 40 mg Q24H SQ ; Start 09/19/19 at 17:00 Hydromorphone HCl (Dilaudid) 1 mg PRN Q2HR PRN IV PAIN Last administered on 09/20/19at 13:59; Start 09/20/19 at 10:00 Levofloxacin/ Dextrose 50 ml @ 50 mls/hr Q24H IV Last administered on 09/20/19at 15:30; Start 09/20/19 at 16:00 Active Scripts Active Reported Hydrochlorothiazide Tablet (Hydrochlorothiazide) 12.5 Mg Tablet 12.5 Mg PO DAILY Amlodipine Besylate 2.5 Mg Tablet 2.5 Mg PO DAILY Last dose given: 9:00 a.m. Next dose due: 12-19-14 9:00 a.m. Lisinopril 20 Mg Tablet 40 Mg PO DAILY06 Last dose given: 9:00 a.m. Next dose due: 12-19-14 Metoprolol Tartrate 50 Mg Tablet 50 Mg PO BID Last dose given: 9:00 a.m. Next dose due: tonight Vitals/I & O Vital Sign - Last 24 Hours 09/20/19 09/20/19 09/20/19 09/20/19 10:03 10:03 10:04 10:33 Pulse 77 77 B/P (MAP) 152/68 152/68 O2 Delivery Room Air Room Air 09/20/19 09/20/19 09/20/19 09/20/19 11:00 13:59 14:29 15:00 Temp 98.0 98.1 98.0 98.1 Pulse 91 77 Resp 16 16 B/P (MAP) 160/76 (104) 143/67 (92) Pulse Ox 93 92 O2 Delivery Nasal Cannula Nasal Cannula Room Air Nasal Cannula O2 Flow Rate 3.0 3.0 09/20/19 09/20/19 09/20/19 09/20/19 19:00 20:00 21:18 23:00 Temp 98.0 98.9 98.0 98.9 Pulse 84 84 76 Resp 18 18 B/P (MAP) 154/69 (97) 154/69 110/63 (79) Pulse Ox 92 92 O2 Delivery Room Air 09/21/19 09/21/19 03:14 08:00 Temp 98.0 97.7 98.0 97.7 Pulse 96 90 Resp 18 18 B/P (MAP) 158/84 (108) 167/64 (98) Pulse Ox 92 91 O2 Delivery Nasal Cannula Nasal Cannula O2 Flow Rate 2.0 2.0 Intake and Output 09/20/19 09/20/19 09/21/19 15:00 23:00 07:00 Intake Total 60 ml 50 ml Balance 60 ml 50 ml THERESA MARTINEZ MD Sep 21, 2019 08:49
[2019-09-21] MEDS ORDERED: IV RINGERS,LACTATED 1000ML 1,000 ML IV SCH (08:55)
[2019-09-21] MEDS ORDERED: ONDANSETRON PF 4 MG/2 ML VIAL. IV PRN (09:00)
[2019-09-21] MEDS ORDERED: fentaNYL PF VIAL 100 MCG/2 ML VIAL IV PRN ×2 (09:00)
[2019-09-21] MEDS ORDERED: MORPHINE SULFATE 2 MG/ML VIAL. IV PRN (09:00)
[2019-09-21] MEDS ORDERED: HYDROmorphone 2 MG/ML VIAL IV PRN (09:00)
[2019-09-21] MEDS ORDERED: PROCHLORPERAZINE 10 MG/2 ML VIAL. IV PRN (09:00)
[2019-09-21] MEDS ORDERED: LIDOCAINE 1% PF 2 ML VIAL. ID PRN (09:00)
[2019-09-21] MEDS ORDERED: SURGICEL HEMOSTAT 4X8 EACH. ONE (09:14)
[2019-09-21] MEDS ORDERED: BUPIVACAINE MPF 0.5% 30 ML VIAL. ONE (09:14)
[2019-09-21] MEDS ORDERED: IOHEXOL 300 MG/ML 50 ML VIAL. ONE (09:14)
[2019-09-21] MEDS ORDERED: LIDOCAINE 2% PF 5 ML VIAL. ONE (09:18)
[2019-09-21] MEDS ORDERED: PROPOFOL 20 ML IV ONE (09:18)
[2019-09-21] MEDS ORDERED: ONDANSETRON PF 4 MG/2 ML VIAL. ONE (09:18)
[2019-09-21] MEDS ORDERED: SUCCINYLCHOLINE 200 MG/10 ML VIAL. ONE (09:18)
[2019-09-21] MEDS ORDERED: fentaNYL PF VIAL 100 MCG/2 ML VIAL ONE (09:18)
[2019-09-21] MEDS ORDERED: DEXAMETHASONE SOD PHOS 4 MG/ML VIAL ONE (09:18)
[2019-09-21] MEDS ORDERED: ROCURONIUM 50 MG/5 ML VIAL. ONE (09:19)
[2019-09-21] MEDS ORDERED: ceFAZolin 1GM IVPB FOR OMNI 100 ML IV ONE (10:07)
[2019-09-21] MEDS ORDERED: METHYLENE BLUE 0.5% 10ml AMPULE. ONE (10:38)
[2019-09-21] MEDS ORDERED: NEOSTIGMINE METHYLSULFATE 5 MG/5 ML SYRINGE. ONE (11:08)
[2019-09-21] MEDS ORDERED: GLYCOPYRROLATE 1 MG/5 ML VIAL. ONE (11:08)
--- NOTE | 2019-09-21 11:22 | RAD ---
CHOLANGIOGRAM INTRAOPERATIVE Clinical Indication: Laparoscopic cholecystectomy. Comparison: Limited abdominal ultrasound, 09/18/2019. Findings: Fluoroscopy is provided by the technologist. Total fluoroscopy time 0.7 minutes. 6 fluoroscopic spot images. Contrast injection of cystic duct remnant. Contrast opacifies the biliary tree which appears dilated. Contrast spills into the duodenum. There is smooth shouldering of the distal common bile duct at the ampulla. A filling defect is not identified in the extrahepatic duct. Please refer to the operative note for further details. IMPRESSION: No evidence of choledocholithiasis. Electronically signed by: London Jett MD (09/21/2019 11:19 AM) [id number]
--- NOTE | 2019-09-21 11:24 | PDOC4 ---
Operative Note Operative Note Operative Note: Preoperative Diagnosis: Calculus cholecystitis, choledocholithiasis Postoperative Diagnosis: Same Procedure: Laparoscopic cholecystectomy with intraoperative cholangiogram Surgeons: [place] Cystoscopy: Meena DUPONT Anesthesia: Gen. Estimated Blood Loss: 10 mL Specimen: Gallbladder to pathology Drains: 19 Fr RYAN Complications: None Findings: Prominent bile staining along right liver lobe, no evidence of bowel perforation Indications: The patient is a 74-year-old female who was admitted with abdominal pain. Her evaluation was consistent with choledocholithiasis and cholangitis. She underwent a preoperative ERCP and is now ready to proceed with laparoscopic cholecystectomy. The details and risks of surgery were discussed. The risks include bleeding, infection, bile duct leak, bowel injury, visceral injury, pain, anesthetic risk, potential need for additional surgery or procedure. She understands and would like to proceed. Description: The patient was taken to the operating room and laid supine on the operating table. General anesthesia was performed. The abdomen was prepped with ChloraPrep and draped in a standard surgical fashion. A small incision was made in the patient's left upper quadrant through which a visualized 5 mm trocar was inserted. A pneumoperitoneum was created and the laparoscope was introduced. There were no significant adhesions noted to the anterior abdominal wall. Another incision was made inferior to the umbilicus through which a 5 mm trocar was inserted. The camera port was relocated to this port. Inspection of the abdomen showed prominent bile staining around superior and inferior aspects of the right lobe of the liver. The gallbladder did not show any acute inflammatory reaction. The stomach and visualized portion of the duodenum appeared unremarkable. There was no sign to suggest a bowel or gastric perforation. We suspected the bile staining was due to the cholangitis and/or ERCP procedure. All of the bile was suctioned. Two additional 5 mm trochars are placed in the right abdomen. The gallbladder was retracted cephalad. The cystic duct was dissected free from surrounding tissues. One clip was placed on the duct near the gallbladder junction. An opening was made in the duct and a cholangiocatheter placed within and secured with a clip. Using contrast dye and fluoroscopy an intraoperative cholangiogram was performed. There was some generalized dilation of the major bile ducts likely due to prior obstruction. Contrast did readily passed into the duodenum. Careful observation showed no evidence of extravasation of the contrast from either the bile ducts or the duodenum. The clip and catheter were then withdrawn. Three clips were placed on the cystic duct and it was divided. The cystic artery was then identified, dissected free, doubly clipped and divided as well. The gallbladder was then mobilized away from the liver with cautery. During our procedure we did assess that anesthesia placed an OG tube and insert over 200 mL of methylene blue. At no point did we see any evidence of extravasation. The umbilical 5 millimeter trocar was exchanged for an 11 millimeter trocar. A 19 Turkmen round Todd drain was left in the right upper quadrant with an exit site at the right port incision. This was secured to the skin with 2-0 silk. The gallbladder was then placed in an endoscopic bag and extracted at the umbilical trocar site. The fascia there was closed with an 0 Vicryl suture. All blood and irrigation fluid was suctioned and hemostasis was good. The remaining ports were removed and the pneumoperitoneum was relieved. The skin incisions were injected with half percent Marcaine with epinephrine, and all were closed using 4-0 Monocryl sut ure. Steri-Strips and dressings were then applied. The patient tolerated the procedure well and was sent to the recovery room in stable condition. At the end of the case all counts were correct. PETE FABIAN MD Sep 21, 2019 11:24
[2019-09-21] MEDS ORDERED: SEVOFLURANE 61 TO 120 MINUTES. IH ONE (11:28)
[2019-09-21] MEDS ORDERED: LABETALOL 20 MG/4 ML DISP.SYRIN. IVP PRN (12:00)
[2019-09-21] MEDS ORDERED: LABETALOL 20 MG/4 ML DISP.SYRIN. IVP ONE (12:00)
[2019-09-21] MEDS: HYDROmorphone 2 MG/ML VIAL IV PRN ×3 (12:40→22:24)
[2019-09-21] MEDS: METOPROLOL TART IMMED RELEASE 50 MG TABLET. PO SCH ×2 (12:40→22:22)
[2019-09-21] MEDS: amLODIPine BESYLATE 5 MG TABLET PO SCH (12:41)
--- NOTE | 2019-09-21 14:01 | PDOC ---
G I PROGRESS NOTE Subjective Now post-basil. Operative discomfort, otherwise OK. Objective Op note reviewed. Physical Exam Lungs clear. RRR Abdomen soft with op site tenderness. Review of Relevant I have reviewed the following items tatianna (where applicable) has been applied. Labs Laboratory Tests Test 09/20/19 06:30 White Blood Count 20.1 x10^3/uL (4.0-11.0) Red Blood Count 3.68 x10^6/uL (3.50-5.40) Hemoglobin 11.0 g/dL (12.0-15.5) Hematocrit 34.1 % (36.0-47.0) Mean Corpuscular Volume 93 fL (79-100) Mean Corpuscular Hemoglobin 30 pg (25-35) Mean Corpuscular Hemoglobin Concent 32 g/dL (31-37) Red Cell Distribution Width 13.6 % (11.5-14.5) Platelet Count 303 x10^3/uL (140-400) Neutrophils (%) (Auto) 88 % (31-73) Lymphocytes (%) (Auto) 7 % (24-48) Monocytes (%) (Auto) 4 % (0-9) Eosinophils (%) (Auto) 0 % (0-3) Basophils (%) (Auto) 0 % (0-3) Neutrophils # (Auto) 17.7 x10^3/uL (1.8-7.7) Lymphocytes # (Auto) 1.4 x10^3/uL (1.0-4.8) Monocytes # (Auto) 0.9 x10^3/uL (0.0-1.1) Eosinophils # (Auto) 0.0 x10^3/uL (0.0-0.7) Basophils # (Auto) 0.0 x10^3/uL (0.0-0.2) Sodium Level 147 mmol/L (136-145) Potassium Level 4.9 mmol/L (3.5-5.1) Chloride Level 109 mmol/L (98-107) Carbon Dioxide Level 27 mmol/L (21-32) Anion Gap 11 (6-14) Blood Urea Nitrogen 34 mg/dL (7-20) Creatinine 1.5 mg/dL (0.6-1.0) Estimated GFR (Cockcroft-Gault) 34.0 BUN/Creatinine Ratio 23 (6-20) Glucose Level 109 mg/dL (70-99) Calcium Level 8.3 mg/dL (8.5-10.1) Total Bilirubin 2.7 mg/dL (0.2-1.0) Aspartate Amino Transf (AST/SGOT) 315 U/L (15-37) Alanine Aminotransferase (ALT/SGPT) 502 U/L (14-59) Alkaline Phosphatase 339 U/L (46-116) Total Protein 5.8 g/dL (6.4-8.2) Albumin 2.6 g/dL (3.4-5.0) Albumin/Globulin Ratio 0.8 (1.0-1.7) Amylase Level 66 U/L (25-115) Lipase 181 U/L (73-393) Microbiology 09/18/19 Urine Culture - Final, Complete 09/18/19 Urine Culture Result 1 (KARLA) - Final, Complete Vitals/I & O Vital Sign - Last 24 Hours 09/20/19 09/20/19 09/20/19 09/20/19 13:59 14:29 15:00 19:00 Temp 98.1 98.0 98.1 98.0 Pulse 77 84 Resp 16 18 B/P (MAP) 143/67 (92) 154/69 (97) Pulse Ox 92 92 O2 Delivery Nasal Cannula Room Air Nasal Cannula O2 Flow Rate 3.0 09/20/19 09/20/19 09/20/19 09/21/19 20:00 21:18 23:00 03:14 Temp 98.9 98.0 98.9 98.0 Pulse 84 76 96 Resp 18 18 B/P (MAP) 154/69 110/63 (79) 158/84 (108) Pulse Ox 92 92 O2 Delivery Room Air Nasal Cannula O2 Flow Rate 2.0 09/21/19 09/21/19 09/21/19 09/21/19 08:00 08:00 09:20 11:29 Temp 97.7 99.2 97.7 99.2 Pulse 90 88 Resp 18 22 B/P (MAP) 167/64 (98) 169/77 Pulse Ox 91 94 O2 Delivery Nasal Cannula Nasal Cannula Nasal Cannula Non-Rebreather O2 Flow Rate 3.0 2.0 3 15 09/21/19 09/21/19 09/21/19 09/21/19 11:29 11:45 11:55 12:00 Temp 97.8 97.8 Pulse 107 104 103 89 Resp 24 22 17 B/P (MAP) 189/88 198/99 198/99 179/85 Pulse Ox 92 94 88 O2 Delivery NonRebreather Mask NonRebreather Mask Nasal Cannula O2 Flow Rate 15 15 6 09/21/19 09/21/19 09/21/19 09/21/19 12:05 12:20 12:20 12:30 Temp 97.8 97.8 97.8 97.8 Pulse 85 84 87 Resp 19 18 17 B/P (MAP) 178/82 173/89 186/92 (123) Pulse Ox 88 92 91 O2 Delivery Nasal Cannula Simple Mask Mask Nasal Cannula O2 Flow Rate 6 6 6 8.0 09/21/19 09/21/19 09/21/19 09/21/19 12:40 12:40 12:41 12:45 Pulse 84 84 83 Resp 17 B/P (MAP) 173/89 173/89 191/96 (127) Pulse Ox 91 O2 Delivery NonRebreather Mask Nasal Cannula O2 Flow Rate 8.0 09/21/19 09/21/19 09/21/19 13:00 13:15 13:30 Pulse 84 77 Resp 17 17 B/P (MAP) 178/92 (120) 169/86 (113) Pulse Ox 92 92 O2 Delivery Nasal Cannula Nasal Cannula Nasal Cannula O2 Flow Rate 8.0 8.0 Intake and Output 09/20/19 09/20/19 09/21/19 15:00 23:00 07:00 Intake Total 60 ml 50 ml Balance 60 ml 50 ml Problem List Problems Medical Problems: (1) Acute hepatitis Status: Acute (2) Acute kidney injury Status: Acute (3) Dehydration Status: Acute Assessment Cholelithiasis, post-basil. Choledocholithiasis, post ES/stone extraction. Plan of Care Note Continue post-op care. Diet per surgical service. MARCELA CLEMENTS MD Sep 21, 2019 14:01
[2019-09-21] MEDS ORDERED: oxyCODONE IR 5 MG TABLET PO PRN (16:30)
[2019-09-21] MEDS ORDERED: MAGNESIUM HYDROXIDE 2,400 MG/30 ML ORAL.SUSP. PO PRN (16:30)
[2019-09-21] MEDS: POLYETHYLENE GLYCOL 3350 17 GM PACKET. PO SCH (22:21)
[2019-09-21] MEDS: PSYLLIUM HUSK (SUGAR FREE) 1 PKT PACKET PO SCH (22:21)
[2019-09-21] MEDS: DOCUSATE SODIUM 100 MG CAPSULE. PO SCH (22:22)
[2019-09-21] MEDS: ENOXAPARIN 40 MG/0.4 ML SYRINGE. SQ SCH (22:32)
[2019-09-22] MEDS: IV RINGERS,LACTATED 1000ML 1,000 ML IV SCH ×2 (00:04→11:41)
[2019-09-22 03:15] VITALS: BP 126/60
[2019-09-22 04:23] LABS: BASO % 0 % (0-3); EOS % 0 % (0-3); HEMOGLOBIN 9.9 g/dL (12.0-15.5); LYMPH % 6 % (24-48); MEAN CORPUSCULAR HEMOGLOBIN 30 pg (25-35); MEAN CORPUSCULAR HGB CONC 33 g/dL (31-37); MEAN CORPUSCULAR VOLUME 91 fL (79-100); MONO # 0.5 x10^3/uL (0.0-1.1); MONO % 3 % (0-9); NEUT # 14.5 x10^3/uL (1.8-7.7); NEUT % 90 % (31-73); PLATELET COUNT 260 x10^3/uL (140-400); RED CELL DISTRIBUTION WIDTH 13.5 % (11.5-14.5)
[2019-09-22 06:02] LABS: ALBUMIN 1.9 g/dL (3.4-5.0); ALBUMIN/GLOBULIN RATIO 0.5 (1.0-1.7); CALCIUM 8.4 mg/dL (8.5-10.1); GFR 54.3; TOTAL BILIRUBIN 0.7 mg/dL (0.2-1.0); TOTAL PROTEIN 5.9 g/dL (6.4-8.2)
[2019-09-22 07:00] VITALS: BP 163/72
--- NOTE | 2019-09-22 07:13 | PDOC ---
PROGRESS NOTES Chief Complaint Chief Complaint A/P: Choledocholithiasis - with Intractable abdominal pain - non-remitting, has acute hepatitis by labs. S/p ERCP 09/19 Nausea and vomiting - possibly gastroenteritis, definitely with a mild pancreatitis and hepatitis 2/2 choledocholithiasis. Will give anti-emetics, pain control. Bowel rest. GI for ERCP NADIR - vasomotor nephropathy likely 2/2 vomiting and poor recent PO intake, will hydrate Hyperglycemia - likely reactive, will trend Acute transaminitis - as above, consult GI. NPO, trend LFTs. RUQ imaging via US confirms choledocholithiasis Leukocytosis - with tachycardia, she has SIRS, this is likely reactive given her recent vomiting, possibly also having a viral gastroenteritis, will trend. Will initiate antibiotics Non-obstructive left nephrolithiasis - unlikely culprit given her current lo cation of pain FEN - NPO PPX - Lovenox 30 mg FULL CODE Dispo - inpatient for N/V, likely 2 midnights. History of Present Illness History of Present Illness Ms Zapata is a 74-year-old female with PMHx HTN who presents with complaint of upper mid-epigastric abdominal pain that started night before Thanks[place]. Patient states that she has had a few episodes of nausea with vomiting. She had eaten a cheeseburger at a local casino prior to this episode and has been having this issue with abdominal pain for the past 5 days which has progressed and now is constant. 2 weeks ago she had similar pain and nausea, relegated to her left upper quadrant that she compared to morning sickness. She was seen in urgent care at that time and given a PPI and antiemetic and improved until 5 days ago. No recent travel or sick contacts, no well water exposure. No diarrhea. She states that her last normal bowel movement was yesterday and states that she has been passing some gas during her pain. She rates the pain at an 8 out of 10. She states that the pain is worsened with movement and with palpation. She also denies any fever. In ED found with WBC of 12, BUN 47, Cr 1.6, Lipase 473, AST 656, ALT 323. Bilirubin 1. CT abdomen pelvis performed without contrast showing non- obstructive left renal calculus, diverticulosis, otherwise no acute process. She is UTD on colonoscopy screening. 09/19: RUQ US reveals choledocholithiasis with CBD 1.2cm and multiple stones. LFTs elevating today. A little jaundiced. still with abdominal pain, nausea and vomiting. ERCP with stone extraction and sphincterotomy 09/20: LFTs up, lipase WNL. WBC 20 today. On levaquin. Plan for surgical consultation. Her pain is not well controlled with morphine. Exam 09/21/19 Late entry: Seen post-op lap basil. Has little appetite. Pain much better controlled with transition to dilaudid. Not passing flatus. No CP or SOB. Plan: Dilaudid 1mg Consult general surgery Vitals Vitals Vital Signs Date Time Temp Pulse Resp B/P (MAP) Pulse Ox O2 Delivery O2 Flow Rate FiO2 09/22/19 03:15 97.4 66 18 126/60 (82) 95 Nasal Cannula 97.4 09/21/19 22:54 1.0 Physical Exam General: Alert, Oriented X3, Cooperative Heart: Regular rate, Normal S1, Normal S2 Lungs: Clear Abdomen: Soft, Other (moderate TTP epigastric, RUQ , midline scar from appendectomy ) Extremities: No clubbing, No cyanosis Skin: No rashes, No breakdown Labs LABS Laboratory Tests Test 09/22/19 03:50 White Blood Count 16.0 x10^3/uL (4.0-11.0) Red Blood Count 3.30 x10^6/uL (3.50-5.40) Hemoglobin 9.9 g/dL (12.0-15.5) Hematocrit 30.0 % (36.0-47.0) Mean Corpuscular Volume 91 fL (79-100) Mean Corpuscular Hemoglobin 30 pg (25-35) Mean Corpuscular Hemoglobin Concent 33 g/dL (31-37) Red Cell Distribution Width 13.5 % (11.5-14.5) Platelet Count 260 x10^3/uL (140-400) Neutrophils (%) (Auto) 90 % (31-73) Lymphocytes (%) (Auto) 6 % (24-48) Monocytes (%) (Auto) 3 % (0-9) Eosinophils (%) (Auto) 0 % (0-3) Basophils (%) (Auto) 0 % (0-3) Neutrophils # (Auto) 14.5 x10^3/uL (1.8-7.7) Lymphocytes # (Auto) 1.0 x10^3/uL (1.0-4.8) Monocytes # (Auto) 0.5 x10^3/uL (0.0-1.1) Eosinophils # (Auto) 0.0 x10^3/uL (0.0-0.7) Basophils # (Auto) 0.0 x10^3/uL (0.0-0.2) Sodium Level 143 mmol/L (136-145) Potassium Level 4.0 mmol/L (3.5-5.1) Chloride Level 107 mmol/L (98-107) Carbon Dioxide Level 28 mmol/L (21-32) Anion Gap 8 (6-14) Blood Urea Nitrogen 23 mg/dL (7-20) Creatinine 1.0 mg/dL (0.6-1.0) Estimated GFR (Cockcroft-Gault) 54.3 BUN/Creatinine Ratio 23 (6-20) Glucose Level 134 mg/dL (70-99) Calcium Level 8.4 mg/dL (8.5-10.1) Total Bilirubin 0.7 mg/dL (0.2-1.0) Aspartate Amino Transf (AST/SGOT) 46 U/L (15-37) Alanine Aminotransferase (ALT/SGPT) 175 U/L (14-59) Alkaline Phosphatase 206 U/L (46-116) Total Protein 5.9 g/dL (6.4-8.2) Albumin 1.9 g/dL (3.4-5.0) Albumin/Globulin Ratio 0.5 (1.0-1.7) Assessment and Plan Assessmemt and Plan Problems Medical Problems: (1) Acute hepatitis Status: Acute (2) Acute kidney injury Status: Acute (3) Dehydration Status: Acute Comment Review of Relevant I have reviewed the following items tatianna (where applicable) has been applied. Labs Laboratory Tests Test 09/22/19 03:50 White Blood Count 16.0 x10^3/uL (4.0-11.0) Red Blood Count 3.30 x10^6/uL (3.50-5.40) Hemoglobin 9.9 g/dL (12.0-15.5) Hematocrit 30.0 % (36.0-47.0) Mean Corpuscular Volume 91 fL (79-100) Mean Corpuscular Hemoglobin 30 pg (25-35) Mean Corpuscular Hemoglobin Concent 33 g/dL (31-37) Red Cell Distribution Width 13.5 % (11.5-14.5) Platelet Count 260 x10^3/uL (140-400) Neutrophils (%) (Auto) 90 % (31-73) Lymphocytes (%) (Auto) 6 % (24-48) Monocytes (%) (Auto) 3 % (0-9) Eosinophils (%) (Auto) 0 % (0-3) Basophils (%) (Auto) 0 % (0-3) Neutrophils # (Auto) 14.5 x10^3/uL (1.8-7.7) Lymphocytes # (Auto) 1.0 x10^3/uL (1.0-4.8) Monocytes # (Auto) 0.5 x10^3/uL (0.0-1.1) Eosinophils # (Auto) 0.0 x10^3/uL (0.0-0.7) Basophils # (Auto) 0.0 x10^3/uL (0.0-0.2) Sodium Level 143 mmol/L (136-145) Potassium Level 4.0 mmol/L (3.5-5.1) Chloride Level 107 mmol/L (98-107) Carbon Dioxide Level 28 mmol/L (21-32) Anion Gap 8 (6-14) Blood Urea Nitrogen 23 mg/dL (7-20) Creatinine 1.0 mg/dL (0.6-1.0) Estimated GFR (Cockcroft-Gault) 54.3 BUN/Creatinine Ratio 23 (6-20) Glucose Level 134 mg/dL (70-99) Calcium Level 8.4 mg/dL (8.5-10.1) Total Bilirubin 0.7 mg/dL (0.2-1.0) Aspartate Amino Transf (AST/SGOT) 46 U/L (15-37) Alanine Aminotransferase (ALT/SGPT) 175 U/L (14-59) Alkaline Phosphatase 206 U/L (46-116) Total Protein 5.9 g/dL (6.4-8.2) Albumin 1.9 g/dL (3.4-5.0) Albumin/Globulin Ratio 0.5 (1.0-1.7) Laboratory Tests Test 09/22/19 03:50 White Blood Count 16.0 x10^3/uL (4.0-11.0) Red Blood Count 3.30 x10^6/uL (3.50-5.40) Hemoglobin 9.9 g/dL (12.0-15.5) Hematocrit 30.0 % (36.0-47.0) Mean Corpuscular Volume 91 fL (79-100) Mean Corpuscular Hemoglobin 30 pg (25-35) Mean Corpuscular Hemoglobin Concent 33 g/dL (31-37) Red Cell Distribution Width 13.5 % (11.5-14.5) Platelet Count 260 x10^3/uL (140-400) Neutrophils (%) (Auto) 90 % (31-73) Lymphocytes (%) (Auto) 6 % (24-48) Monocytes (%) (Auto) 3 % (0-9) Eosinophils (%) (Auto) 0 % (0-3) Basophils (%) (Auto) 0 % (0-3) Neutrophils # (Auto) 14.5 x10^3/uL (1.8-7.7) Lymphocytes # (Auto) 1.0 x10^3/uL (1.0-4.8) Monocytes # (Auto) 0.5 x10^3/uL (0.0-1.1) Eosinophils # (Auto) 0.0 x10^3/uL (0.0-0.7) Basophils # (Auto) 0.0 x10^3/uL (0.0-0.2) Sodium Level 143 mmol/L (136-145) Potassium Level 4.0 mmol/L (3.5-5.1) Chloride Level 107 mmol/L (98-107) Carbon Dioxide Level 28 mmol/L (21-32) Anion Gap 8 (6-14) Blood Urea Nitrogen 23 mg/dL (7-20) Creatinine 1.0 mg/dL (0.6-1.0) Estimated GFR (Cockcroft-Gault) 54.3 BUN/Creatinine Ratio 23 (6-20) Glucose Level 134 mg/dL (70-99) Calcium Level 8.4 mg/dL (8.5-10.1) Total Bilirubin 0.7 mg/dL (0.2-1.0) Aspartate Amino Transf (AST/SGOT) 46 U/L (15-37) Alanine Aminotransferase (ALT/SGPT) 175 U/L (14-59) Alkaline Phosphatase 206 U/L (46-116) Total Protein 5.9 g/dL (6.4-8.2) Albumin 1.9 g/dL (3.4-5.0) Albumin/Globulin Ratio 0.5 (1.0-1.7) Microbiology 09/18/19 Urine Culture - Final, Complete 09/18/19 Urine Culture Result 1 (KARLA) - Final, Complete Medications Current Medications Fentanyl Citrate (Fentanyl 2ml Vial) 25 mcg PRN Q15MIN PRN IV PAIN GREATER THAN 3/10 Last administered on 09/18/19 09:06; Start 09/18/19 at 08:45; Stop 09/18/19 at 15:21; Status DC Sodium Chloride 1,000 ml @ 1,000 mls/hr Q1H IV Last administered on 09/18/19at 09:05; Start 09/18/19 at 08:43; Stop 09/18/19 at 09:42; Status DC Ondansetron HCl (Zofran) 4 mg 1X ONCE IV Last administered on 09/18/19at 09:06; Start 09/18/19 at 08:45; Stop 09/18/19 at 08:46; Status DC Ondansetron HCl (Zofran) 4 mg 1X ONCE IV Last administered on 09/18/19at 12:34; Start 09/18/19 at 12:30; Stop 09/18/19 at 12:35; Status DC Ondansetron HCl (Zofran) 4 mg PRN Q8HRS PRN IV NAUSEA/VOMITING Last administered on 09/18/19at 15:48; Start 09/18/19 at 13:00; Stop 09/18/19 at 16:08; Status DC Sodium Chloride 1,000 ml @ 125 mls/hr Q8H IV Last administered on 09/19/19at 17:11; Start 09/18/19 at 12:47; Stop 09/19/19 at 12:46; Status DC Morphine Sulfate (Morphine Sulfate) 2 mg PRN Q4HRS PRN IV PAIN Last administered on 09/20/19at 06:26; Start 09/18/19 at 15:15; Stop 09/20/19 at 09:53; Status DC Ondansetron HCl (Zofran) 4 mg PRN Q6HRS PRN IV NAUSEA/VOMITING Last admi nistered on 09/19/19at 05:04; Start 09/18/19 at 16:00 Metoprolol Tartrate (Lopressor) 50 mg BID PO Last administered on 09/21/19at 22:22; Start 09/18/19 at 21:00 Amlodipine Besylate (Norvasc) 2.5 mg DAILY PO Last administered on 09/21/19at 12:41; Start 09/19/19 at 09:00 Enoxaparin Sodium (Lovenox 30mg Syringe) 30 mg Q24H SQ Last administered on 09/18/19at 16:38; Start 09/18/19 at 16:15; Stop 09/19/19 at 16:49; Status DC Ketorolac Tromethamine (Toradol 15mg Vial) 15 mg 1X ONCE IVP Last administered on 09/19/19at 09:45; Start 09/19/19 at 08:30; Stop 09/19/19 at 08:48; Status DC Prochlorperazine Edisylate (Compazine) 10 mg PRN Q6HRS PRN IV NAUSEA/VOMITING Last administered on 09/19/19at 10:18; Start 09/19/19 at 10:15 Prochlorperazine Edisylate (Compazine) 5 mg PRN Q6HRS PRN IV NAUSEA/VOMITING; Start 09/19/19 at 10:15 Ringer's Solution 1,000 ml @ 100 mls/hr Q10H IV Last administered on 09/22/19 00:04; Start 09/19/19 at 13:30 Propofol 20 ml @ As Directed STK-MED ONCE IV ; Start 09/19/19 at 13:33; Stop 09/19/19 at 13:34; Status DC Lidocaine HCl (Lidocaine Pf 2% Vial) 5 ml STK-MED ONCE .ROUTE ; Start 09/19/19 at 13:33; Stop 09/19/19 at 13:34; Status DC Ondansetron HCl (Zofran) 4 mg STK-MED ONCE .ROUTE ; Start 09/19/19 at 13:33; Stop 09/19/19 at 13:34; Status DC Dexamethasone Sodium Phosphate (Decadron) 4 mg STK-MED ONCE .ROUTE ; Start 09/19/19 at 13:33; Stop 09/19/19 at 13:34; Status DC Succinylcholine Chloride (Anectine) 200 mg STK-MED ONCE .ROUTE ; Start 09/19/19 at 13:33; Stop 09/19/19 at 13:34; Status DC Sevoflurane (Ultane) 60 ml STK-MED ONCE IH ; Start 09/19/19 at 13:35; Stop 09/19/19 at 13:35; Status DC Iohexol (Omnipaque 300 Mg/ml) 100 ml STK-MED ONCE .ROUTE ; Start 09/19/19 at 14:41; Stop 09/19/19 at 14:41; Status DC Levofloxacin/ Dextrose 100 ml @ As Directed STK-MED ONCE IV ; Start 09/19/19 at 15:16; Stop 09/19/19 at 15:16; Status DC Levofloxacin/ Dextrose 100 ml @ 100 mls/hr 1X ONCE IV Last administered on 09/19/19at 15:18; Start 09/19/19 at 15:30; Stop 09/19/19 at 16:29; Status DC Levofloxacin/ Dextrose 100 ml @ 100 mls/hr Q24H IV ; Start 09/20/19 at 16:00; Stop 09/20/19 at 15:00; Status DC Iohexol (Omnipaque 300 Mg/ml) 50 ml STK-MED ONCE INT CAT Last administered on 09/19/19at 15:25; Start 09/19/19 at 15:25; Stop 09/19/19 at 16:34; Status DC Enoxaparin Sodium (Lovenox 40mg Syringe) 40 mg Q24H SQ ; Start 09/19/19 at 17:00; Stop 09/21/19 at 15:38; Status DC Hydromorphone HCl (Dilaudid) 1 mg PRN Q2HR PRN IV PAIN Last administered on 09/21/19at 22:24; Start 09/20/19 at 10:00 Levofloxacin/ Dextrose 50 ml @ 50 mls/hr Q24H IV Last administered on 09/21/19at 16:38; Start 09/20/19 at 16:00 Ondansetron HCl (Zofran) 4 mg PRN Q6HRS PRN IV NAUSEA/VOMITING; Start 09/21/19 at 09:00; Stop 09/21/19 at 13:35; Status DC Fentanyl Citrate (Fentanyl 2ml Vial) 25 mcg PRN Q5MIN PRN IV MILD PAIN 1-3; Start 09/21/19 at 09:00; Stop 09/21/19 at 13:35; Status DC Fentanyl Citrate (Fentanyl 2ml Vial) 50 mcg PRN Q5MIN PRN IV MODERATE TO SEVERE PAIN; Start 09/21/19 at 09:00; Stop 09/21/19 at 13:35; Status DC Morphine Sulfate (Morphine Sulfate) 1 mg PRN Q10MIN PRN IV SEVERE PAIN 7-10; Start 09/21/19 at 09:00; Stop 09/21/19 at 13:35; Status DC Ringer's Solution 1,000 ml @ 30 mls/hr Q24H IV ; Start 09/21/19 at 08:55; Stop 09/21/19 at 13:35; Status DC Lidocaine HCl (Xylocaine-Mpf 1% 2ml Vial) 2 ml PRN 1X PRN ID PRIOR TO IV START; Start 09/21/19 at 09:00; Stop 09/21/19 at 13:35; Status DC Hydromorphone HCl (Dilaudid) 0.5 mg PRN Q10MIN PRN IV SEV PAIN, Second choice; Start 09/21/19 at 09:00; Stop 09/21/19 at 13:35; Status DC Prochlorperazine Edisylate (Compazine) 5 mg PACU PRN PRN IV NAUSEA, MRX1; Start 09/21/19 at 09:00; Stop 09/21/19 at 13:35; Status DC Iohexol (Omnipaque 300 Mg/ml) 50 ml STK-MED ONCE .ROUTE Last administered on 09/21/19at 10:30; Start 09/21/19 at 09:14; Stop 09/21/19 at 09:14; Status DC Cellulose (Surgicel Hemostat 4x8) 1 each STK-MED ONCE .ROUTE ; Start 09/21/19 at 09:14; Stop 09/21/19 at 09:15; Status DC Bupivacaine HCl (Sensorcaine Mpf 0.5%) 30 ml STK-MED ONCE .ROUTE Last administered on 09/21/19at 10:30; Start 09/21/19 at 09:14; Stop 09/21/19 at 09:15; Status DC Ondansetron HCl (Zofran) 4 mg STK-MED ONCE .ROUTE ; Start 09/21/19 at 09:18; Stop 09/21/19 at 09:19; Status DC Propofol 20 ml @ As Directed STK-MED ONCE IV ; Start 09/21/19 at 09:18; Stop 09/21/19 at 09:19; Status DC Lidocaine HCl (Lidocaine Pf 2% Vial) 5 ml STK-MED ONCE .ROUTE ; Start 09/21/19 at 09:18; Stop 09/21/19 at 09:19; Status DC Dexamethasone Sodium Phosphate (Decadron) 4 mg STK-MED ONCE .ROUTE ; Start 09/21/19 at 09:18; Stop 09/21/19 at 09:19; Status DC Fentanyl Citrate (Fentanyl 2ml Vial) 100 mcg STK-MED ONCE .ROUTE ; Start 09/21/19 at 09:18; Stop 09/21/19 at 09:19; Status DC Succinylcholine Chloride (Anectine) 200 mg STK-MED ONCE .ROUTE ; Start 09/21/19 at 09:18; Stop 09/21/19 at 09:19; Status DC Rocuronium [place] (Zemuron) 50 mg STK-MED ONCE .ROUTE ; Start 09/21/19 at 09:19; Stop 09/21/19 at 09:19; Status DC Cefazolin Sodium 100 ml @ As Directed STK-MED ONCE IV ; Start 09/21/19 at 10:07; Stop 09/21/19 at 10:07; Status DC Methylene Blue (Provayblue) 10 ml STK-MED ONCE .ROUTE ; Start 09/21/19 at 10:38; Stop 09/21/19 at 10:39; Status DC Glycopyrrolate (Robinul) 1 mg STK-MED ONCE .ROUTE ; Start 09/21/19 at 11:08; Stop 09/21/19 at 11:08; Status DC Neostigmine Methylsulfate (Neostigmine Methylsulfate) 5 mg STK-MED ONCE .ROUTE ; Start 09/21/19 at 11:08; Stop 09/21/19 at 11:08; Status DC Sevoflurane (Ultane) 60 ml STK-MED ONCE IH ; Start 09/21/19 at 11:28; Stop 09/21/19 at 11:28; Status DC Cefazolin Sodium/ Dextrose 50 ml @ 100 mls/hr 1X PREOP PRN IV preop Last administered on 09/21/19at 10:09; Start 09/21/19 at 12:00; Stop 09/22/19 at 11:59 Labetalol HCl (Normodyne Iv Push) 10 mg PRN Q10MIN PRN IVP HYPERTENSION Last administered on 09/21/19at 11:55; Start 09/21/19 at 12:00 Labetalol HCl (Normodyne Iv Push) 20 mg 1X ONCE IVP ; Start 09/21/19 at 12:00; Stop 09/21/19 at 12:01; Status DC Enoxaparin Sodium (Lovenox 40mg Syringe) 40 mg Q24H SQ Last administered on 09/21/19at 22:32; Start 09/21/19 at 21:00 Oxycodone HCl (Roxicodone) 5 mg PRN Q6HRS PRN PO PAIN; Start 09/21/19 at 16:30 Docusate Sodium (Colace) 100 mg BID PO Last administered on 09/21/19at 22:22; Start 09/21/19 at 21:00 Polyethylene Glycol (miraLAX PACKET) 17 gm HS PO Last administered on 09/21/19at 22:21; Start 09/21/19 at 21:00 Psyllium Hydrophilic Mucilloid (Metamucil Fiber Packet) 1 pkt HS PO Last administered on 09/21/19at 22:21; Start 09/21/19 at 21:00 Magnesium Hydroxide (Milk Of Magnesia) 2,400 mg PRN DAILY PRN PO CONSTIPATION; Start 09/21/19 at 16:30 Active Scripts Active Reported Hydrochlorothiazide Tablet (Hydrochlorothiazide) 12.5 Mg Tablet 12.5 Mg PO DAILY Amlodipine Besylate 2.5 Mg Tablet 2.5 Mg PO DAILY Last dose given: 9:00 a.m. Next dose due: 12-19-14 9:00 a.m. Lisinopril 20 Mg Tablet 40 Mg PO DAILY06 Last dose given: 9:00 a.m. Next dose due: 12-19-14 Metoprolol Tartrate 50 Mg Tablet 50 Mg PO BID Last dose given: 9:00 a.m. Next dose due: tonight Vitals/I & O Vital Sign - Last 24 Hours 09/21/19 09/21/19 09/21/19 09/21/19 08:00 08:00 09:20 11:29 Temp 97.7 99.2 97.7 99.2 Pulse 90 88 Resp 18 22 B/P (MAP) 167/64 (98) 169/77 Pulse Ox 91 94 O2 Delivery Nasal Cannula Nasal Cannula Nasal Cannula Non-Rebreather O2 Flow Rate 3.0 2.0 3 15 09/21/19 09/21/19 09/21/19 09/21/19 11:29 11:45 11:55 12:00 Temp 97.8 97.8 Pulse 107 104 103 89 Resp 24 22 17 B/P (MAP) 189/88 198/99 198/99 179/85 Pulse Ox 92 94 88 O2 Delivery NonRebreather Mask NonRebreather Mask Nasal Cannula O2 Flow Rate 15 15 6 09/21/19 09/21/19 09/21/19 09/21/19 12:05 12:20 12:20 12:30 Temp 97.8 97.8 97.8 97.8 Pulse 85 84 87 Resp 19 18 17 B/P (MAP) 178/82 173/89 186/92 (123) Pulse Ox 88 92 91 O2 Delivery Nasal Cannula Simple Mask Mask Nasal Cannula O2 Flow Rate 6 6 6 8.0 09/21/19 09/21/19 09/21/19 09/21/19 12:40 12:40 12:41 12:45 Pulse 84 84 83 Resp 17 B/P (MAP) 173/89 173/89 191/96 (127) Pulse Ox 91 O2 Delivery NonRebreather Mask Nasal Cannula O2 Flow Rate 8.0 09/21/19 09/21/19 09/21/19 09/21/19 13:00 13:15 13:30 13:45 Pulse 84 77 75 Resp 17 17 17 B/P (MAP) 178/92 (120) 169/86 (113) 169/84 (112) Pulse Ox 92 92 91 O2 Delivery Nasal Cannula Nasal Cannula Nasal Cannula Nasal Cannula O2 Flow Rate 8.0 8.0 4.0 09/21/19 09/21/19 09/21/19 09/21/19 14:15 16:41 17:11 19:00 Temp 98.1 98.1 Pulse 58 75 Resp 17 18 B/P (MAP) 144/75 (98) 120/54 (76) Pulse Ox 94 91 O2 Delivery Nasal Cannula Nasal Cannula Room Air Nasal Cannula O2 Flow Rate 4.0 09/21/19 09/21/19 09/21/19 09/21/19 20:30 22:22 22:24 22:54 Pulse 75 Resp 18 18 B/P (MAP) 120/54 Pulse Ox 91 91 O2 Delivery Nasal Cannula Nasal Cannula Nasal Cannula O2 Flow Rate 1.0 1.0 1.0 09/21/19 09/22/19 23:00 03:15 Temp 97.7 97.4 97.7 97.4 Pulse 63 66 Resp 20 18 B/P (MAP) 127/69 (88) 126/60 (82) Pulse Ox 91 95 O2 Delivery Nasal Cannula Nasal Cannula Intake and Output 09/21/19 09/21/19 09/22/19 14:59 22:59 06:59 Intake Total 975 ml 600 ml Output Total 110 ml 200 ml Balance 865 ml 600 ml -200 ml KSENIA CHU MD Sep 22, 2019 07:13
[2019-09-22] MEDS: DOCUSATE SODIUM 100 MG CAPSULE. PO SCH ×2 (08:59→20:34)
[2019-09-22] MEDS: METOPROLOL TART IMMED RELEASE 50 MG TABLET. PO SCH ×2 (09:00→20:35)
[2019-09-22] MEDS: amLODIPine BESYLATE 5 MG TABLET PO SCH (09:00)
[2019-09-22 10:52] VITALS: BP 144/66
--- NOTE | 2019-09-22 10:57 | NUR ---
SW following for discharge planning. Chart reviewed, discussed with RN, pt is from home with family, gets around okay. Pt currently has a RYAN drain, possibly could discharge home today if drain is removed (per RN). SW will continue to follow for any discharge planning needs.
--- NOTE | 2019-09-22 12:53 | PDOC ---
Subjective: Subjective: Passed gas earlier - not much now. Strained to stool, then developed some mid/left abd pain. Also had some heartburn. Objective: Vital Signs: Vital Signs Date Time Temp Pulse Resp B/P (MAP) Pulse Ox O2 Delivery O2 Flow Rate FiO2 09/22/19 10:52 98.0 83 18 144/66 (92) 91 Nasal Cannula 1.0 98.0 Labs: Laboratory Tests Test 09/22/19 03:50 White Blood Count 16.0 x10^3/uL Red Blood Count 3.30 x10^6/uL Hemoglobin 9.9 g/dL Hematocrit 30.0 % Mean Corpuscular Volume 91 fL Mean Corpuscular Hemoglobin 30 pg Mean Corpuscular Hemoglobin Concent 33 g/dL Red Cell Distribution Width 13.5 % Platelet Count 260 x10^3/uL Neutrophils (%) (Auto) 90 % Lymphocytes (%) (Auto) 6 % Monocytes (%) (Auto) 3 % Eosinophils (%) (Auto) 0 % Basophils (%) (Auto) 0 % Neutrophils # (Auto) 14.5 x10^3/uL Lymphocytes # (Auto) 1.0 x10^3/uL Monocytes # (Auto) 0.5 x10^3/uL Eosinophils # (Auto) 0.0 x10^3/uL Basophils # (Auto) 0.0 x10^3/uL Sodium Level 143 mmol/L Potassium Level 4.0 mmol/L Chloride Level 107 mmol/L Carbon Dioxide Level 28 mmol/L Anion Gap 8 Blood Urea Nitrogen 23 mg/dL Creatinine 1.0 mg/dL Estimated GFR (Cockcroft-Gault) 54.3 BUN/Creatinine Ratio 23 Glucose Level 134 mg/dL Calcium Level 8.4 mg/dL Total Bilirubin 0.7 mg/dL Aspartate Amino Transf (AST/SGOT) 46 U/L Alanine Aminotransferase (ALT/SGPT) 175 U/L Alkaline Phosphatase 206 U/L Total Protein 5.9 g/dL Albumin 1.9 g/dL Albumin/Globulin Ratio 0.5 PE: GEN: NAD LUNGS: NC 1L HEART: RRR ABD: drain, quiet BS, soft, vaguely tender left periumbilical NEURO/PSYCH: A & O 3 A/P: S/p ERCP/sphincterotomy and cholecystectomy Normocytic anemia Elevated LFTs - improving Heartburn -- Monitor abd pain. Diet per surgery. Add acid-public address servicer for heartburn. Already has Miralax, etc. DAVY DELONG Sep 22, 2019 12:53
[2019-09-22 13:10] LABS: ANA INTERP Negative (.)
--- NOTE | 2019-09-22 13:10 | PDOC ---
GEOVANI MARINELLI ROOFING APPLICATOR 09/22/19 1310: SURGICAL PROGRESS NOTE Subjective tender to upper abdomen, no nausea tolerating clears Vital Signs Vital Signs Date Time Temp Pulse Resp B/P (MAP) Pulse Ox O2 Delivery O2 Flow Rate FiO2 09/22/19 10:52 98.0 83 18 144/66 (92) 91 Nasal Cannula 1.0 98.0 I&O Intake and Output 09/22/19 07:00 Intake Total 2575 ml Output Total 380 ml Balance 2195 ml Intake Oral 625 ml IV Total 1950 ml Output Urine Total 300 ml Drainage Total 70 ml Estimated Blood Loss 10 ml # Voids 3 General: Alert, Oriented X3, Cooperative, No acute distress Abdomen: Soft, Other (lap dressings dry, matt serosang ) Labs Laboratory Tests Test 09/22/19 03:50 White Blood Count 16.0 x10^3/uL (4.0-11.0) Red Blood Count 3.30 x10^6/uL (3.50-5.40) Hemoglobin 9.9 g/dL (12.0-15.5) Hematocrit 30.0 % (36.0-47.0) Mean Corpuscular Volume 91 fL (79-100) Mean Corpuscular Hemoglobin 30 pg (25-35) Mean Corpuscular Hemoglobin Concent 33 g/dL (31-37) Red Cell Distribution Width 13.5 % (11.5-14.5) Platelet Count 260 x10^3/uL (140-400) Neutrophils (%) (Auto) 90 % (31-73) Lymphocytes (%) (Auto) 6 % (24-48) Monocytes (%) (Auto) 3 % (0-9) Eosinophils (%) (Auto) 0 % (0-3) Basophils (%) (Auto) 0 % (0-3) Neutrophils # (Auto) 14.5 x10^3/uL (1.8-7.7) Lymphocytes # (Auto) 1.0 x10^3/uL (1.0-4.8) Monocytes # (Auto) 0.5 x10^3/uL (0.0-1.1) Eosinophils # (Auto) 0.0 x10^3/uL (0.0-0.7) Basophils # (Auto) 0.0 x10^3/uL (0.0-0.2) Sodium Level 143 mmol/L (136-145) Potassium Level 4.0 mmol/L (3.5-5.1) Chloride Level 107 mmol/L (98-107) Carbon Dioxide Level 28 mmol/L (21-32) Anion Gap 8 (6-14) Blood Urea Nitrogen 23 mg/dL (7-20) Creatinine 1.0 mg/dL (0.6-1.0) Estimated GFR (Cockcroft-Gault) 54.3 BUN/Creatinine Ratio 23 (6-20) Glucose Level 134 mg/dL (70-99) Calcium Level 8.4 mg/dL (8.5-10.1) Total Bilirubin 0.7 mg/dL (0.2-1.0) Aspartate Amino Transf (AST/SGOT) 46 U/L (15-37) Alanine Aminotransferase (ALT/SGPT) 175 U/L (14-59) Alkaline Phosphatase 206 U/L (46-116) Total Protein 5.9 g/dL (6.4-8.2) Albumin 1.9 g/dL (3.4-5.0) Albumin/Globulin Ratio 0.5 (1.0-1.7) Laboratory Tests Test 09/22/19 03:50 White Blood Count 16.0 x10^3/uL (4.0-11.0) Red Blood Count 3.30 x10^6/uL (3.50-5.40) Hemoglobin 9.9 g/dL (12.0-15.5) Hematocrit 30.0 % (36.0-47.0) Mean Corpuscular Volume 91 fL (79-100) Mean Corpuscular Hemoglobin 30 pg (25-35) Mean Corpuscular Hemoglobin Concent 33 g/dL (31-37) Red Cell Distribution Width 13.5 % (11.5-14.5) Platelet Count 260 x10^3/uL (140-400) Neutrophils (%) (Auto) 90 % (31-73) Lymphocytes (%) (Auto) 6 % (24-48) Monocytes (%) (Auto) 3 % (0-9) Eosinophils (%) (Auto) 0 % (0-3) Basophils (%) (Auto) 0 % (0-3) Neutrophils # (Auto) 14.5 x10^3/uL (1.8-7.7) Lymphocytes # (Auto) 1.0 x10^3/uL (1.0-4.8) Monocytes # (Auto) 0.5 x10^3/uL (0.0-1.1) Eosinophils # (Auto) 0.0 x10^3/uL (0.0-0.7) Basophils # (Auto) 0.0 x10^3/uL (0.0-0.2) Sodium Level 143 mmol/L (136-145) Potassium Level 4.0 mmol/L (3.5-5.1) Chloride Level 107 mmol/L (98-107) Carbon Dioxide Level 28 mmol/L (21-32) Anion Gap 8 (6-14) Blood Urea Nitrogen 23 mg/dL (7-20) Creatinine 1.0 mg/dL (0.6-1.0) Estimated GFR (Cockcroft-Gault) 54.3 BUN/Creatinine Ratio 23 (6-20) Glucose Level 134 mg/dL (70-99) Calcium Level 8.4 mg/dL (8.5-10.1) Total Bilirubin 0.7 mg/dL (0.2-1.0) Aspartate Amino Transf (AST/SGOT) 46 U/L (15-37) Alanine Aminotransferase (ALT/SGPT) 175 U/L (14-59) Alkaline Phosphatase 206 U/L (46-116) Total Protein 5.9 g/dL (6.4-8.2) Albumin 1.9 g/dL (3.4-5.0) Albumin/Globulin Ratio 0.5 (1.0-1.7) Problem List Problems Medical Problems: (1) Acute hepatitis Status: Acute (2) Acute kidney injury Status: Acute (3) Dehydration Status: Acute Assessment/Plan s/p basil lab in AM full liquids PETE FABIAN MD 09/22/19 1715: SURGICAL PROGRESS NOTE Assessment/Plan Agree with above GEOVANI MARINELLI ROOFING APPLICATOR Sep 22, 2019 13:10 PETE FABIAN MD Sep 22, 2019 17:15
--- NOTE | 2019-09-22 14:05 | PDOC ---
PROGRESS NOTES Chief Complaint Chief Complaint acute Choledocholithiasis - admitted for Intractable abdominal pain - acute hepatitis S/p ERCP 09/19 Nausea and vomiting - possibly gastroenteritis, definitely with a mild pancreatitis and hepatitis 2/2 choledocholithiasis. Will give anti-emetics, pain control. Bowel rest. GI for ERCP NADIR - vasomotor nephropathy likely 2/2 vomiting and poor recent PO intake, will hydrate Hyperglycemia - likely reactive, will trend Acute transaminitis - as above, consult GI. NPO, trend LFTs. RUQ imaging via US confirms choledocholithiasis Leukocytosis - with tachycardia, she has SIRS, this is likely reactive given her recent vomiting, possibly also having a viral gastroenteritis, will trend. Will initiate antibiotics Non-obstructive left nephrolithiasis - unlikely culprit given her current location of pain History of Present Illness History of Present Illness s/p basil pain better po intake imrpovd, complains of heartburn, will start tums post-op lap basil. improved appetite. Pain much better controlled with transition to dilaudid - some flatus Plan: Dilaudid 1mg pRN Consult general surgery Vitals Vitals Vital Signs Date Time Temp Pulse Resp B/P (MAP) Pulse Ox O2 Delivery O2 Flow Rate FiO2 09/22/19 10:52 98.0 83 18 144/66 (92) 91 Nasal Cannula 1.0 98.0 Physical Exam General: Alert, Oriented X3, Cooperative, No acute distress Heart: Regular rate, Normal S1, Normal S2 Lungs: Clear Abdomen: Soft, Other (lap dressings dry, matt serosang ) Extremities: No clubbing, No cyanosis Skin: No rashes, No breakdown Labs LABS Laboratory Tests Test 09/22/19 03:50 White Blood Count 16.0 x10^3/uL (4.0-11.0) Red Blood Count 3.30 x10^6/uL (3.50-5.40) Hemoglobin 9.9 g/dL (12.0-15.5) Hematocrit 30.0 % (36.0-47.0) Mean Corpuscular Volume 91 fL (79-100) Mean Corpuscular Hemoglobin 30 pg (25-35) Mean Corpuscular Hemoglobin Concent 33 g/dL (31-37) Red Cell Distribution Width 13.5 % (11.5-14.5) Platelet Count 260 x10^3/uL (140-400) Neutrophils (%) (Auto) 90 % (31-73) Lymphocytes (%) (Auto) 6 % (24-48) Monocytes (%) (Auto) 3 % (0-9) Eosinophils (%) (Auto) 0 % (0-3) Basophils (%) (Auto) 0 % (0-3) Neutrophils # (Auto) 14.5 x10^3/uL (1.8-7.7) Lymphocytes # (Auto) 1.0 x10^3/uL (1.0-4.8) Monocytes # (Auto) 0.5 x10^3/uL (0.0-1.1) Eosinophils # (Auto) 0.0 x10^3/uL (0.0-0.7) Basophils # (Auto) 0.0 x10^3/uL (0.0-0.2) Sodium Level 143 mmol/L (136-145) Potassium Level 4.0 mmol/L (3.5-5.1) Chloride Level 107 mmol/L (98-107) Carbon Dioxide Level 28 mmol/L (21-32) Anion Gap 8 (6-14) Blood Urea Nitrogen 23 mg/dL (7-20) Creatinine 1.0 mg/dL (0.6-1.0) Estimated GFR (Cockcroft-Gault) 54.3 BUN/Creatinine Ratio 23 (6-20) Glucose Level 134 mg/dL (70-99) Calcium Level 8.4 mg/dL (8.5-10.1) Total Bilirubin 0.7 mg/dL (0.2-1.0) Aspartate Amino Transf (AST/SGOT) 46 U/L (15-37) Alanine Aminotransferase (ALT/SGPT) 175 U/L (14-59) Alkaline Phosphatase 206 U/L (46-116) Total Protein 5.9 g/dL (6.4-8.2) Albumin 1.9 g/dL (3.4-5.0) Albumin/Globulin Ratio 0.5 (1.0-1.7) Assessment and Plan Assessmemt and Plan Problems Medical Problems: (1) Acute hepatitis Status: Acute (2) Acute kidney injury Status: Acute (3) Dehydration Status: Acute Comment Review of Relevant I have reviewed the following items tatianna (where applicable) has been applied. Labs Laboratory Tests Test 09/22/19 03:50 White Blood Count 16.0 x10^3/uL (4.0-11.0) Red Blood Count 3.30 x10^6/uL (3.50-5.40) Hemoglobin 9.9 g/dL (12.0-15.5) Hematocrit 30.0 % (36.0-47.0) Mean Corpuscular Volume 91 fL (79-100) Mean Corpuscular Hemoglobin 30 pg (25-35) Mean Corpuscular Hemoglobin Concent 33 g/dL (31-37) Red Cell Distribution Width 13.5 % (11.5-14.5) Platelet Count 260 x10^3/uL (140-400) Neutrophils (%) (Auto) 90 % (31-73) Lymphocytes (%) (Auto) 6 % (24-48) Monocytes (%) (Auto) 3 % (0-9) Eosinophils (%) (Auto) 0 % (0-3) Basophils (%) (Auto) 0 % (0-3) Neutrophils # (Auto) 14.5 x10^3/uL (1.8-7.7) Lymphocytes # (Auto) 1.0 x10^3/uL (1.0-4.8) Monocytes # (Auto) 0.5 x10^3/uL (0.0-1.1) Eosinophils # (Auto) 0.0 x10^3/uL (0.0-0.7) Basophils # (Auto) 0.0 x10^3/uL (0.0-0.2) Sodium Level 143 mmol/L (136-145) Potassium Level 4.0 mmol/L (3.5-5.1) Chloride Level 107 mmol/L (98-107) Carbon Dioxide Level 28 mmol/L (21-32) Anion Gap 8 (6-14) Blood Urea Nitrogen 23 mg/dL (7-20) Creatinine 1.0 mg/dL (0.6-1.0) Estimated GFR (Cockcroft-Gault) 54.3 BUN/Creatinine Ratio 23 (6-20) Glucose Level 134 mg/dL (70-99) Calcium Level 8.4 mg/dL (8.5-10.1) Total Bilirubin 0.7 mg/dL (0.2-1.0) Aspartate Amino Transf (AST/SGOT) 46 U/L (15-37) Alanine Aminotransferase (ALT/SGPT) 175 U/L (14-59) Alkaline Phosphatase 206 U/L (46-116) Total Protein 5.9 g/dL (6.4-8.2) Albumin 1.9 g/dL (3.4-5.0) Albumin/Globulin Ratio 0.5 (1.0-1.7) Laboratory Tests Test 09/22/19 03:50 White Blood Count 16.0 x10^3/uL (4.0-11.0) Red Blood Count 3.30 x10^6/uL (3.50-5.40) Hemoglobin 9.9 g/dL (12.0-15.5) Hematocrit 30.0 % (36.0-47.0) Mean Corpuscular Volume 91 fL (79-100) Mean Corpuscular Hemoglobin 30 pg (25-35) Mean Corpuscular Hemoglobin Concent 33 g/dL (31-37) Red Cell Distribution Width 13.5 % (11.5-14.5) Platelet Count 260 x10^3/uL (140-400) Neutrophils (%) (Auto) 90 % (31-73) Lymphocytes (%) (Auto) 6 % (24-48) Monocytes (%) (Auto) 3 % (0-9) Eosinophils (%) (Auto) 0 % (0-3) Basophils (%) (Auto) 0 % (0-3) Neutrophils # (Auto) 14.5 x10^3/uL (1.8-7.7) Lymphocytes # (Auto) 1.0 x10^3/uL (1.0-4.8) Monocytes # (Auto) 0.5 x10^3/uL (0.0-1.1) Eosinophils # (Auto) 0.0 x10^3/uL (0.0-0.7) Basophils # (Auto) 0.0 x10^3/uL (0.0-0.2) Sodium Level 143 mmol/L (136-145) Potassium Level 4.0 mmol/L (3.5-5.1) Chloride Level 107 mmol/L (98-107) Carbon Dioxide Level 28 mmol/L (21-32) Anion Gap 8 (6-14) Blood Urea Nitrogen 23 mg/dL (7-20) Creatinine 1.0 mg/dL (0.6-1.0) Estimated GFR (Cockcroft-Gault) 54.3 BUN/Creatinine Ratio 23 (6-20) Glucose Level 134 mg/dL (70-99) Calcium Level 8.4 mg/dL (8.5-10.1) Total Bilirubin 0.7 mg/dL (0.2-1.0) Aspartate Amino Transf (AST/SGOT) 46 U/L (15-37) Alanine Aminotransferase (ALT/SGPT) 175 U/L (14-59) Alkaline Phosphatase 206 U/L (46-116) Total Protein 5.9 g/dL (6.4-8.2) Albumin 1.9 g/dL (3.4-5.0) Albumin/Globulin Ratio 0.5 (1.0-1.7) Microbiology 09/18/19 Urine Culture - Final, Complete 09/18/19 Urine Culture Result 1 (KARLA) - Final, Complete Medications Current Medications Fentanyl Citrate (Fentanyl 2ml Vial) 25 mcg PRN Q15MIN PRN IV PAIN GREATER THAN 3/10 Last administered on 09/18/19at 09:06; Start 09/18/19 at 08:45; Stop 09/18/19 at 15:21; Status DC Sodium Chloride 1,000 ml @ 1,000 mls/hr Q1H IV Last administered on 09/18/19at 09:05; Start 09/18/19 at 08:43; Stop 09/18/19 at 09:42; Status DC Ondansetron HCl (Zofran) 4 mg 1X ONCE IV Last administered on 09/18/19at 09:06; Start 09/18/19 at 08:45; Stop 09/18/19 at 08:46; Status DC Ondansetron HCl (Zofran) 4 mg 1X ONCE IV Last administered on 09/18/19at 12:34; Start 09/18/19 at 12:30; Stop 09/18/19 at 12:35; Status DC Ondansetron HCl (Zofran) 4 mg PRN Q8HRS PRN IV NAUSEA/VOMITING Last administered on 09/18/19at 15:48; Start 09/18/19 at 13:00; Stop 09/18/19 at 16:08; Status DC Sodium Chloride 1,000 ml @ 125 mls/hr Q8H IV Last administered on 09/19/19at 17:11; Start 09/18/19 at 12:47; Stop 09/19/19 at 12:46; Status DC Morphine Sulfate (Morphine Sulfate) 2 mg PRN Q4HRS PRN IV PAIN Last administered on 09/20/19at 06:26; Start 09/18/19 at 15:15; Stop 09/20/19 at 09:53; Status DC Ondansetron HCl (Zofran) 4 mg PRN Q6HRS PRN IV N/V, IF COMPAZINE INEFFECTIVE Last administered on 09/19/19at 05:04; Start 09/18/19 at 16:00 Metoprolol Tartrate (Lopressor) 50 mg BID PO Last administered on 09/22/19at 09:00; Start 09/18/19 at 21:00 Amlodipine Besylate (Norvasc) 2.5 mg DAILY PO Last administered on 09/22/19at 09:00; Start 09/19/19 at 09:00 Enoxaparin Sodium (Lovenox 30mg Syringe) 30 mg Q24H SQ Last administered on 09/18/19at 16:38; Start 09/18/19 at 16:15; Stop 09/19/19 at 16:49; Status DC Ketorolac Tromethamine (Toradol 15mg Vial) 15 mg 1X ONCE IVP Last administered on 09/19/19at 09:45; Start 09/19/19 at 08:30; Stop 09/19/19 at 08:48; Status DC Prochlorperazine Edisylate (Compazine) 10 mg PRN Q6HRS PRN IV N/V, IF 5MG INEFFECTIVE Last administered on 09/19/19at 10:18; Start 09/19/19 at 10:15 Prochlorperazine Edisylate (Compazine) 5 mg PRN Q6HRS PRN IV NAUSEA/VOMITING; Start 09/19/19 at 10:15 Ringer's Solution 1,000 ml @ 50 mls/hr Q20H IV Last administered on 09/22/19at 11:41; Start 09/19/19 at 13:30 Propofol 20 ml @ As Directed STK-MED ONCE IV ; Start 09/19/19 at 13:33; Stop 09/19/19 at 13:34; Status DC Lidocaine HCl (Lidocaine Pf 2% Vial) 5 ml STK-MED ONCE .ROUTE ; Start 09/19/19 at 13:33; Stop 09/19/19 at 13:34; Status DC Ondansetron HCl (Zofran) 4 mg STK-MED ONCE .ROUTE ; Start 09/19/19 at 13:33; Stop 09/19/19 at 13:34; Status DC Dexamethasone Sodium Phosphate (Decadron) 4 mg STK-MED ONCE .ROUTE ; Start 09/19/19 at 13:33; Stop 09/19/19 at 13:34; Status DC Succinylcholine Chloride (Anectine) 200 mg STK-MED ONCE .ROUTE ; Start 09/19/19 at 13:33; Stop 09/19/19 at 13:34; Status DC Sevoflurane (Ultane) 60 ml STK-MED ONCE IH ; Start 09/19/19 at 13:35; Stop 09/19/19 at 13:35; Status DC Iohexol (Omnipaque 300 Mg/ml) 100 ml STK-MED ONCE .ROUTE ; Start 09/19/19 at 14:41; Stop 09/19/19 at 14:41; Status DC Levofloxacin/ Dextrose 100 ml @ As Directed STK-MED ONCE IV ; Start 09/19/19 at 15:16; Stop 09/19/19 at 15:16; Status DC Levofloxacin/ Dextrose 100 ml @ 100 mls/hr 1X ONCE IV Last administered on 09/19/19at 15:18; Start 09/19/19 at 15:30; Stop 09/19/19 at 16:29; Status DC Levofloxacin/ Dextrose 100 ml @ 100 mls/hr Q24H IV ; Start 09/20/19 at 16:00; Stop 09/20/19 at 15:00; Status DC Iohexol (Omnipaque 300 Mg/ml) 50 ml STK-MED ONCE INT CAT Last administered on 09/19/19at 15:25; Start 09/19/19 at 15:25; Stop 09/19/19 at 16:34; Status DC Enoxaparin Sodium (Lovenox 40mg Syringe) 40 mg Q24H SQ ; Start 09/19/19 at 17:00; Stop 09/21/19 at 15:38; Status DC Hydromorphone HCl (Dilaudid) 1 mg PRN Q2HR PRN IV PAIN Last administered on 09/21/19at 22:24; Start 09/20/19 at 10:00 Levofloxacin/ Dextrose 50 ml @ 50 mls/hr Q24H IV Last administered on 09/21/19at 16:38; Start 09/20/19 at 16:00 Ondansetron HCl (Zofran) 4 mg PRN Q6HRS PRN IV NAUSEA/VOMITING; Start 09/21/19 at 09:00; Stop 09/21/19 at 13:35; Status DC Fentanyl Citrate (Fentanyl 2ml Vial) 25 mcg PRN Q5MIN PRN IV MILD PAIN 1-3; Start 09/21/19 at 09:00; Stop 09/21/19 at 13:35; Status DC Fentanyl Citrate (Fentanyl 2ml Vial) 50 mcg PRN Q5MIN PRN IV MODERATE TO SEVERE PAIN; Start 09/21/19 at 09:00; Stop 09/21/19 at 13:35; Status DC Morphine Sulfate (Morphine Sulfate) 1 mg PRN Q10MIN PRN IV SEVERE PAIN 7-10; Start 09/21/19 at 09:00; Stop 09/21/19 at 13:35; Status DC Ringer's Solution 1,000 ml @ 30 mls/hr Q24H IV ; Start 09/21/19 at 08:55; Stop 09/21/19 at 13:35; Status DC Lidocaine HCl (Xylocaine-Mpf 1% 2ml Vial) 2 ml PRN 1X PRN ID PRIOR TO IV START; Start 09/21/19 at 09:00; Stop 09/21/19 at 13:35; Status DC Hydromorphone HCl (Dilaudid) 0.5 mg PRN Q10MIN PRN IV SEV PAIN, Second choice; Start 09/21/19 at 09:00; Stop 09/21/19 at 13:35; Status DC Prochlorperazine Edisylate (Compazine) 5 mg PACU PRN PRN IV NAUSEA, MRX1; Start 09/21/19 at 09:00; Stop 09/21/19 at 13:35; Status DC Iohexol (Omnipaque 300 Mg/ml) 50 ml STK-MED ONCE .ROUTE Last administered on 09/21/19at 10:30; Start 09/21/19 at 09:14; Stop 09/21/19 at 09:14; Status DC Cellulose (Surgicel Hemostat 4x8) 1 each STK-MED ONCE .ROUTE ; Start 09/21/19 at 09:14; Stop 09/21/19 at 09:15; Status DC Bupivacaine HCl (Sensorcaine Mpf 0.5%) 30 ml STK-MED ONCE .ROUTE Last administered on 09/21/19at 10:30; Start 09/21/19 at 09:14; Stop 09/21/19 at 09:15; Status DC Ondansetron HCl (Zofran) 4 mg STK-MED ONCE .ROUTE ; Start 09/21/19 at 09:18; Stop 09/21/19 at 09:19; Status DC Propofol 20 ml @ As Directed STK-MED ONCE IV ; Start 09/21/19 at 09:18; Stop 09/21/19 at 09:19; Status DC Lidocaine HCl (Lidocaine Pf 2% Vial) 5 ml STK-MED ONCE .ROUTE ; Start 09/21/19 at 09:18; Stop 09/21/19 at 09:19; Status DC Dexamethasone Sodium Phosphate (Decadron) 4 mg STK-MED ONCE .ROUTE ; Start 09/21/19 at 09:18; Stop 09/21/19 at 09:19; Status DC Fentanyl Citrate (Fentanyl 2ml Vial) 100 mcg STK-MED ONCE .ROUTE ; Start 09/21/19 at 09:18; Stop 09/21/19 at 09:19; Status DC Succinylcholine Chloride (Anectine) 200 mg STK-MED ONCE .ROUTE ; Start 09/21/19 at 09:18; Stop 09/21/19 at 09:19; Status DC Rocuronium [place] (Zemuron) 50 mg STK-MED ONCE .ROUTE ; Start 09/21/19 at 09:19; Stop 09/21/19 at 09:19; Status DC Cefazolin Sodium 100 ml @ As Directed STK-MED ONCE IV ; Start 09/21/19 at 10:07; Stop 09/21/19 at 10:07; Status DC Methylene Blue (Provayblue) 10 ml STK-MED ONCE .ROUTE ; Start 09/21/19 at 10:38; Stop 09/21/19 at 10:39; Status DC Glycopyrrolate (Robinul) 1 mg STK-MED ONCE .ROUTE ; Start 09/21/19 at 11:08; Stop 09/21/19 at 11:08; Status DC Neostigmine Methylsulfate (Neostigmine Methylsulfate) 5 mg STK-MED ONCE .ROUTE ; Start 09/21/19 at 11:08; Stop 09/21/19 at 11:08; Status DC Sevoflurane (Ultane) 60 ml STK-MED ONCE IH ; Start 09/21/19 at 11:28; Stop 09/21/19 at 11:28; Status DC Cefazolin Sodium/ Dextrose 50 ml @ 100 mls/hr 1X PREOP PRN IV preop Last administered on 09/21/19at 10:09; Start 09/21/19 at 12:00; Stop 09/22/19 at 11:59; Status DC Labetalol HCl (Normodyne Iv Push) 10 mg PRN Q10MIN PRN IVP HYPERTENSION Last administered on 09/21/19at 11:55; Start 09/21/19 at 12:00 Labetalol HCl (Normodyne Iv Push) 20 mg 1X ONCE IVP ; Start 09/21/19 at 12:00; Stop 09/21/19 at 12:01; Status DC Enoxaparin Sodium (Lovenox 40mg Syringe) 40 mg Q24H SQ Last administered on 09/21/19at 22:32; Start 09/21/19 at 21:00 Oxycodone HCl (Roxicodone) 5 mg PRN Q6HRS PRN PO PAIN; Start 09/21/19 at 16:30 Docusate Sodium (Colace) 100 mg BID PO Last administered on 09/22/19at 08:59; Start 09/21/19 at 21:00 Polyethylene Glycol (miraLAX PACKET) 17 gm HS PO Last administered on 09/21/19at 22:21; Start 09/21/19 at 21:00 Psyllium Hydrophilic Mucilloid (Metamucil Fiber Packet) 1 pkt HS PO Last administered on 09/21/19at 22:21; Start 09/21/19 at 21:00 Magnesium Hydroxide (Milk Of Magnesia) 2,400 mg PRN DAILY PRN PO CONSTIPATION; Start 09/21/19 at 16:30 Ephedrine Sulfate (ePHEDrine PF IN SALINE SYRINGE) 50 mg STK-MED ONCE IV ; Start 09/20/19 at 12:00; Stop 09/22/19 at 08:58; Status DC Calcium Carbonate/ Glycine (Tums) 500 mg PRN AFTMEALHC PRN PO INDIGESTION; Start 09/22/19 at 13:00 Famotidine (Pepcid) 20 mg QHS PO ; Start 09/22/19 at 21:00 Lactobacillus Rhamnosus (Culturelle) 1 cap BID PO ; Start 09/22/19 at 21:00 Active Scripts Active Reported Hydrochlorothiazide Tablet (Hydrochlorothiazide) 12.5 Mg Tablet 12.5 Mg PO DAILY Amlodipine Besylate 2.5 Mg Tablet 2.5 Mg PO DAILY Last dose given: 9:00 a.m. Next dose due: 12-19-14 9:00 a.m. Lisinopril 20 Mg Tablet 40 Mg PO DAILY06 Last dose given: 9:00 a.m. Next dose due: 12-19-14 Metoprolol Tartrate 50 Mg Tablet 50 Mg PO BID Last dose given: 9:00 a.m. Next dose due: tonight Vitals/I & O Vital Sign - Last 24 Hours 09/21/19 09/21/19 09/21/19 09/21/19 14:15 16:41 17:11 19:00 Temp 98.1 98.1 Pulse 58 75 Resp 17 18 B/P (MAP) 144/75 (98) 120/54 (76) Pulse Ox 94 91 O2 Delivery Nasal Cannula Nasal Cannula Room Air Nasal Cannula O2 Flow Rate 4.0 09/21/19 09/21/19 09/21/19 09/21/19 20:30 22:22 22:24 22:54 Pulse 75 Resp 18 18 B/P (MAP) 120/54 Pulse Ox 91 91 O2 Delivery Nasal Cannula Nasal Cannula Nasal Cannula O2 Flow Rate 1.0 1.0 1.0 09/21/19 09/22/19 09/22/19 09/22/19 23:00 03:15 07:00 08:00 Temp 97.7 97.4 98.2 97.7 97.4 98.2 Pulse 63 66 73 Resp 20 18 18 B/P (MAP) 127/69 (88) 126/60 (82) 163/72 (102) Pulse Ox 91 95 92 O2 Delivery Nasal Cannula Nasal Cannula Nasal Cannula Nasal Cannula O2 Flow Rate 1.0 1.0 09/22/19 09/22/19 09/22/19 09:00 09:00 10:52 Temp 98.0 98.0 Pulse 73 73 83 Resp 18 B/P (MAP) 163/72 163/72 144/66 (92) Pulse Ox 91 O2 Delivery Nasal Cannula O2 Flow Rate 1.0 Intake and Output 09/21/19 09/21/19 09/22/19 15:00 23:00 07:00 Intake Total 975 ml 600 ml 1000 ml Output Total 110 ml 270 ml Balance 865 ml 600 ml 730 ml CALIN MCNEAL MD Sep 22, 2019 14:05
[2019-09-22 14:45] VITALS: BP 168/74
[2019-09-22] MEDS: CALCIUM CARBONATE 500 MG TAB.CHEW PO PRN ×2 (16:46→20:34)
[2019-09-22 19:00] VITALS: BP 173/84
[2019-09-22] MEDS: LACTOBACILLUS RHAMNOSUS GG 1 CAPSULE. PO SCH (20:34)
[2019-09-22] MEDS: POLYETHYLENE GLYCOL 3350 17 GM PACKET. PO SCH (20:34)
[2019-09-22] MEDS: FAMOTIDINE 20 MG TABLET. PO SCH (20:34)
[2019-09-22] MEDS: PSYLLIUM HUSK (SUGAR FREE) 1 PKT PACKET PO SCH (20:34)
[2019-09-22] MEDS: ENOXAPARIN 40 MG/0.4 ML SYRINGE. SQ SCH (20:35)
[2019-09-22 23:00] VITALS: BP 169/72
[2019-09-23 03:00] VITALS: BP 139/78
[2019-09-23 05:46] LABS: ALBUMIN/GLOBULIN RATIO 0.5 (1.0-1.7); CALCIUM 8.6 mg/dL (8.5-10.1); CREATININE 1.1 mg/dL (0.6-1.0); GFR 48.7; POTASSIUM 3.3 mmol/L (3.5-5.1); TOTAL BILIRUBIN 0.8 mg/dL (0.2-1.0); TOTAL PROTEIN 5.9 g/dL (6.4-8.2)
[2019-09-23 07:00] VITALS: BP 176/78
[2019-09-23] MEDS: amLODIPine BESYLATE 5 MG TABLET PO SCH (08:34)
[2019-09-23] MEDS: LACTOBACILLUS RHAMNOSUS GG 1 CAPSULE. PO SCH ×2 (08:34→20:38)
[2019-09-23] MEDS: METOPROLOL TART IMMED RELEASE 50 MG TABLET. PO SCH ×2 (08:34→20:38)
[2019-09-23] MEDS: DOCUSATE SODIUM 100 MG CAPSULE. PO SCH ×2 (08:35→20:37)
[2019-09-23] MEDS: IV RINGERS,LACTATED 1000ML 1,000 ML IV SCH ×2 (08:38→22:50)
--- NOTE | 2019-09-23 09:04 | PDOC ---
SURGICAL PROGRESS NOTE Subjective bloated doesnt feel great some flatus incisional pain not walking much Vital Signs Vital Signs Date Time Temp Pulse Resp B/P (MAP) Pulse Ox O2 Delivery O2 Flow Rate FiO2 09/23/19 08:34 88 176/78 09/23/19 07:00 97.8 18 92 Room Air 97.8 09/22/19 23:00 2.0 I&O Intake and Output 09/23/19 07:00 Intake Total 1230 ml Output Total 100 ml Balance 1130 ml Intake Oral 1230 ml Drainage Total 100 ml # Voids 2 General: Alert, Oriented X3, Cooperative Abdomen: Soft, Other (Nd, lap dressings dry, matt serosang) Labs Laboratory Tests Test 09/22/19 03:50 09/23/19 04:02 White Blood Count 16.0 x10^3/uL (4.0-11.0) Red Blood Count 3.30 x10^6/uL (3.50-5.40) Hemoglobin 9.9 g/dL (12.0-15.5) Hematocrit 30.0 % (36.0-47.0) Mean Corpuscular Volume 91 fL (79-100) Mean Corpuscular Hemoglobin 30 pg (25-35) Mean Corpuscular Hemoglobin Concent 33 g/dL (31-37) Red Cell Distribution Width 13.5 % (11.5-14.5) Platelet Count 260 x10^3/uL (140-400) Neutrophils (%) (Auto) 90 % (31-73) Lymphocytes (%) (Auto) 6 % (24-48) Monocytes (%) (Auto) 3 % (0-9) Eosinophils (%) (Auto) 0 % (0-3) Basophils (%) (Auto) 0 % (0-3) Neutrophils # (Auto) 14.5 x10^3/uL (1.8-7.7) Lymphocytes # (Auto) 1.0 x10^3/uL (1.0-4.8) Monocytes # (Auto) 0.5 x10^3/uL (0.0-1.1) Eosinophils # (Auto) 0.0 x10^3/uL (0.0-0.7) Basophils # (Auto) 0.0 x10^3/uL (0.0-0.2) Sodium Level 143 mmol/L (136-145) 144 mmol/L (136-145) Potassium Level 4.0 mmol/L (3.5-5.1) 3.3 mmol/L (3.5-5.1) Chloride Level 107 mmol/L (98-107) 107 mmol/L (98-107) Carbon Dioxide Level 28 mmol/L (21-32) 28 mmol/L (21-32) Anion Gap 8 (6-14) 9 (6-14) Blood Urea Nitrogen 23 mg/dL (7-20) 20 mg/dL (7-20) Creatinine 1.0 mg/dL (0.6-1.0) 1.1 mg/dL (0.6-1.0) Estimated GFR (Cockcroft-Gault) 54.3 48.7 BUN/Creatinine Ratio 23 (6-20) 18 (6-20) Glucose Level 134 mg/dL (70-99) 94 mg/dL (70-99) Calcium Level 8.4 mg/dL (8.5-10.1) 8.6 mg/dL (8.5-10.1) Total Bilirubin 0.7 mg/dL (0.2-1.0) 0.8 mg/dL (0.2-1.0) Aspartate Amino Transf (AST/SGOT) 46 U/L (15-37) 26 U/L (15-37) Alanine Aminotransferase (ALT/SGPT) 175 U/L (14-59) 111 U/L (14-59) Alkaline Phosphatase 206 U/L (46-116) 192 U/L (46-116) Total Protein 5.9 g/dL (6.4-8.2) 5.9 g/dL (6.4-8.2) Albumin 1.9 g/dL (3.4-5.0) 2.0 g/dL (3.4-5.0) Albumin/Globulin Ratio 0.5 (1.0-1.7) 0.5 (1.0-1.7) Laboratory Tests Test 09/23/19 04:02 Sodium Level 144 mmol/L (136-145) Potassium Level 3.3 mmol/L (3.5-5.1) Chloride Level 107 mmol/L (98-107) Carbon Dioxide Level 28 mmol/L (21-32) Anion Gap 9 (6-14) Blood Urea Nitrogen 20 mg/dL (7-20) Creatinine 1.1 mg/dL (0.6-1.0) Estimated GFR (Cockcroft-Gault) 48.7 BUN/Creatinine Ratio 18 (6-20) Glucose Level 94 mg/dL (70-99) Calcium Level 8.6 mg/dL (8.5-10.1) Total Bilirubin 0.8 mg/dL (0.2-1.0) Aspartate Amino Transf (AST/SGOT) 26 U/L (15-37) Alanine Aminotransferase (ALT/SGPT) 111 U/L (14-59) Alkaline Phosphatase 192 U/L (46-116) Total Protein 5.9 g/dL (6.4-8.2) Albumin 2.0 g/dL (3.4-5.0) Albumin/Globulin Ratio 0.5 (1.0-1.7) Problem List Problems Medical Problems: (1) Acute hepatitis Status: Acute (2) Acute kidney injury Status: Acute (3) Dehydration Status: Acute Assessment/Plan s/p basil CBC pending, continue abx continue drain increase activity hold off advancing diet until better bowel function GEOVANI MARINELLI APRN Sep 23, 2019 09:04
[2019-09-23 09:12] LABS: SMOOTH MUSCLE AB 15 Units (0-19)
[2019-09-23 09:13] LABS: BASO % 0 % (0-3); EOS # 0.1 x10^3/uL (0.0-0.7); EOS % 1 % (0-3); HEMOGLOBIN 10.5 g/dL (12.0-15.5); LYMPH # 1.6 x10^3/uL (1.0-4.8); LYMPH % 14 % (24-48); MEAN CORPUSCULAR HEMOGLOBIN 30 pg (25-35); MEAN CORPUSCULAR HGB CONC 33 g/dL (31-37); MEAN CORPUSCULAR VOLUME 91 fL (79-100); MONO # 0.8 x10^3/uL (0.0-1.1); MONO % 7 % (0-9); NEUT # 9.2 x10^3/uL (1.8-7.7); NEUT % 79 % (31-73); PLATELET COUNT 303 x10^3/uL (140-400); RED CELL DISTRIBUTION WIDTH 13.5 % (11.5-14.5); WHITE BLOOD COUNT 11.6 x10^3/uL (4.0-11.0)
--- NOTE | 2019-09-23 09:45 | PDOC ---
PROGRESS NOTES Chief Complaint Chief Complaint acute Choledocholithiasis - admitted for Intractable abdominal pain - acute hepatitis S/p ERCP 09/19 Nausea and vomiting - possibly gastroenteritis, definitely with a mild pancreatitis and hepatitis 2/2 choledocholithiasis. Will give anti-emetics, pain control. Bowel rest. GI for ERCP NADIR - vasomotor nephropathy likely 2/2 vomiting and poor recent PO intake, will hydrate Hyperglycemia - likely reactive, will trend Acute transaminitis - as above, consult GI. NPO, trend LFTs. RUQ imaging via US confirms choledocholithiasis Leukocytosis - with tachycardia, she has SIRS, this is likely reactive given her recent vomiting, possibly also having a viral gastroenteritis, will trend. Will initiate antibiotics Non-obstructive left nephrolithiasis - unlikely culprit given her current location of pain S/p ERCP/sphincterotomy and cholecystectomy History of Present Illness History of Present Illness s/p basil pain better po intake imrpovd, complains of heartburn, will start tums post-op lap basil. improved appetite. Pain much better controlled with transition to dilaudid - some flatus Plan: Dilaudid 1mg pRN Consult general surgery Vitals Vitals Vital Signs Date Time Temp Pulse Resp B/P (MAP) Pulse Ox O2 Delivery O2 Flow Rate FiO2 09/23/19 08:34 88 176/78 09/23/19 07:00 97.8 18 92 Room Air 97.8 09/22/19 23:00 2.0 Physical Exam General: Alert, Oriented X3, Cooperative Heart: Regular rate, Normal S1, Normal S2 Lungs: Clear Abdomen: Soft, Other (Nd, lap dressings dry, matt serosang) Extremities: No clubbing, No cyanosis Skin: No rashes, No breakdown Labs LABS Laboratory Tests Test 09/23/19 04:02 White Blood Count 11.6 x10^3/uL (4.0-11.0) Red Blood Count 3.50 x10^6/uL (3.50-5.40) Hemoglobin 10.5 g/dL (12.0-15.5) Hematocrit 32.0 % (36.0-47.0) Mean Corpuscular Volume 91 fL (79-100) Mean Corpuscular Hemoglobin 30 pg (25-35) Mean Corpuscular Hemoglobin Concent 33 g/dL (31-37) Red Cell Distribution Width 13.5 % (11.5-14.5) Platelet Count 303 x10^3/uL (140-400) Neutrophils (%) (Auto) 79 % (31-73) Lymphocytes (%) (Auto) 14 % (24-48) Monocytes (%) (Auto) 7 % (0-9) Eosinophils (%) (Auto) 1 % (0-3) Basophils (%) (Auto) 0 % (0-3) Neutrophils # (Auto) 9.2 x10^3/uL (1.8-7.7) Lymphocytes # (Auto) 1.6 x10^3/uL (1.0-4.8) Monocytes # (Auto) 0.8 x10^3/uL (0.0-1.1) Eosinophils # (Auto) 0.1 x10^3/uL (0.0-0.7) Basophils # (Auto) 0.0 x10^3/uL (0.0-0.2) Sodium Level 144 mmol/L (136-145) Potassium Level 3.3 mmol/L (3.5-5.1) Chloride Level 107 mmol/L (98-107) Carbon Dioxide Level 28 mmol/L (21-32) Anion Gap 9 (6-14) Blood Urea Nitrogen 20 mg/dL (7-20) Creatinine 1.1 mg/dL (0.6-1.0) Estimated GFR (Cockcroft-Gault) 48.7 BUN/Creatinine Ratio 18 (6-20) Glucose Level 94 mg/dL (70-99) Calcium Level 8.6 mg/dL (8.5-10.1) Total Bilirubin 0.8 mg/dL (0.2-1.0) Aspartate Amino Transf (AST/SGOT) 26 U/L (15-37) Alanine Aminotransferase (ALT/SGPT) 111 U/L (14-59) Alkaline Phosphatase 192 U/L (46-116) Total Protein 5.9 g/dL (6.4-8.2) Albumin 2.0 g/dL (3.4-5.0) Albumin/Globulin Ratio 0.5 (1.0-1.7) Assessment and Plan Assessmemt and Plan Problems Medical Problems: (1) Acute hepatitis Status: Acute (2) Acute kidney injury Status: Acute (3) Dehydration Status: Acute Comment Review of Relevant I have reviewed the following items tatianna (where applicable) has been applied. Labs Laboratory Tests Test 09/22/19 03:50 09/23/19 04:02 White Blood Count 16.0 x10^3/uL (4.0-11.0) 11.6 x10^3/uL (4.0-11.0) Red Blood Count 3.30 x10^6/uL (3.50-5.40) 3.50 x10^6/uL (3.50-5.40) Hemoglobin 9.9 g/dL (12.0-15.5) 10.5 g/dL (12.0-15.5) Hematocrit 30.0 % (36.0-47.0) 32.0 % (36.0-47.0) Mean Corpuscular Volume 91 fL (79-100) 91 fL (79-100) Mean Corpuscular Hemoglobin 30 pg (25-35) 30 pg (25-35) Mean Corpuscular Hemoglobin Concent 33 g/dL (31-37) 33 g/dL (31-37) Red Cell Distribution Width 13.5 % (11.5-14.5) 13.5 % (11.5-14.5) Platelet Count 260 x10^3/uL (140-400) 303 x10^3/uL (140-400) Neutrophils (%) (Auto) 90 % (31-73) 79 % (31-73) Lymphocytes (%) (Auto) 6 % (24-48) 14 % (24-48) Monocytes (%) (Auto) 3 % (0-9) 7 % (0-9) Eosinophils (%) (Auto) 0 % (0-3) 1 % (0-3) Basophils (%) (Auto) 0 % (0-3) 0 % (0-3) Neutrophils # (Auto) 14.5 x10^3/uL (1.8-7.7) 9.2 x10^3/uL (1.8-7.7) Lymphocytes # (Auto) 1.0 x10^3/uL (1.0-4.8) 1.6 x10^3/uL (1.0-4.8) Monocytes # (Auto) 0.5 x10^3/uL (0.0-1.1) 0.8 x10^3/uL (0.0-1.1) Eosinophils # (Auto) 0.0 x10^3/uL (0.0-0.7) 0.1 x10^3/uL (0.0-0.7) Basophils # (Auto) 0.0 x10^3/uL (0.0-0.2) 0.0 x10^3/uL (0.0-0.2) Sodium Level 143 mmol/L (136-145) 144 mmol/L (136-145) Potassium Level 4.0 mmol/L (3.5-5.1) 3.3 mmol/L (3.5-5.1) Chloride Level 107 mmol/L (98-107) 107 mmol/L (98-107) Carbon Dioxide Level 28 mmol/L (21-32) 28 mmol/L (21-32) Anion Gap 8 (6-14) 9 (6-14) Blood Urea Nitrogen 23 mg/dL (7-20) 20 mg/dL (7-20) Creatinine 1.0 mg/dL (0.6-1.0) 1.1 mg/dL (0.6-1.0) Estimated GFR (Cockcroft-Gault) 54.3 48.7 BUN/Creatinine Ratio 23 (6-20) 18 (6-20) Glucose Level 134 mg/dL (70-99) 94 mg/dL (70-99) Calcium Level 8.4 mg/dL (8.5-10.1) 8.6 mg/dL (8.5-10.1) Total Bilirubin 0.7 mg/dL (0.2-1.0) 0.8 mg/dL (0.2-1.0) Aspartate Amino Transf (AST/SGOT) 46 U/L (15-37) 26 U/L (15-37) Alanine Aminotransferase (ALT/SGPT) 175 U/L (14-59) 111 U/L (14-59) Alkaline Phosphatase 206 U/L (46-116) 192 U/L (46-116) Total Protein 5.9 g/dL (6.4-8.2) 5.9 g/dL (6.4-8.2) Albumin 1.9 g/dL (3.4-5.0) 2.0 g/dL (3.4-5.0) Albumin/Globulin Ratio 0.5 (1.0-1.7) 0.5 (1.0-1.7) Laboratory Tests Test 09/23/19 04:02 White Blood Count 11.6 x10^3/uL (4.0-11.0) Red Blood Count 3.50 x10^6/uL (3.50-5.40) Hemoglobin 10.5 g/dL (12.0-15.5) Hematocrit 32.0 % (36.0-47.0) Mean Corpuscular Volume 91 fL (79-100) Mean Corpuscular Hemoglobin 30 pg (25-35) Mean Corpuscular Hemoglobin Concent 33 g/dL (31-37) Red Cell Distribution Width 13.5 % (11.5-14.5) Platelet Count 303 x10^3/uL (140-400) Neutrophils (%) (Auto) 79 % (31-73) Lymphocytes (%) (Auto) 14 % (24-48) Monocytes (%) (Auto) 7 % (0-9) Eosinophils (%) (Auto) 1 % (0-3) Basophils (%) (Auto) 0 % (0-3) Neutrophils # (Auto) 9.2 x10^3/uL (1.8-7.7) Lymphocytes # (Auto) 1.6 x10^3/uL (1.0-4.8) Monocytes # (Auto) 0.8 x10^3/uL (0.0-1.1) Eosinophils # (Auto) 0.1 x10^3/uL (0.0-0.7) Basophils # (Auto) 0.0 x10^3/uL (0.0-0.2) Sodium Level 144 mmol/L (136-145) Potassium Level 3.3 mmol/L (3.5-5.1) Chloride Level 107 mmol/L (98-107) Carbon Dioxide Level 28 mmol/L (21-32) Anion Gap 9 (6-14) Blood Urea Nitrogen 20 mg/dL (7-20) Creatinine 1.1 mg/dL (0.6-1.0) Estimated GFR (Cockcroft-Gault) 48.7 BUN/Creatinine Ratio 18 (6-20) Glucose Level 94 mg/dL (70-99) Calcium Level 8.6 mg/dL (8.5-10.1) Total Bilirubin 0.8 mg/dL (0.2-1.0) Aspartate Amino Transf (AST/SGOT) 26 U/L (15-37) Alanine Aminotransferase (ALT/SGPT) 111 U/L (14-59) Alkaline Phosphatase 192 U/L (46-116) Total Protein 5.9 g/dL (6.4-8.2) Albumin 2.0 g/dL (3.4-5.0) Albumin/Globulin Ratio 0.5 (1.0-1.7) Microbiology 09/18/19 Urine Culture - Final, Complete 09/18/19 Urine Culture Result 1 (KARLA) - Final, Complete Medications Current Medications Fentanyl Citrate (Fentanyl 2ml Vial) 25 mcg PRN Q15MIN PRN IV PAIN GREATER THAN 3/10 Last administered on 09/18/19at 09:06; Start 09/18/19 at 08:45; Stop 09/18/19 at 15:21; Status DC Sodium Chloride 1,000 ml @ 1,000 mls/hr Q1H IV Last administered on 09/18/19at 09:05; Start 09/18/19 at 08:43; Stop 09/18/19 at 09:42; Status DC Ondansetron HCl (Zofran) 4 mg 1X ONCE IV Last administered on 09/18/19at 09:06; Start 09/18/19 at 08:45; Stop 09/18/19 at 08:46; Status DC Ondansetron HCl (Zofran) 4 mg 1X ONCE IV Last administered on 09/18/19at 12:34; Start 09/18/19 at 12:30; Stop 09/18/19 at 12:35; Status DC Ondansetron HCl (Zofran) 4 mg PRN Q8HRS PRN IV NAUSEA/VOMITING Last admin istered on 09/18/19at 15:48; Start 09/18/19 at 13:00; Stop 09/18/19 at 16:08; Status DC Sodium Chloride 1,000 ml @ 125 mls/hr Q8H IV Last administered on 09/19/19at 17:11; Start 09/18/19 at 12:47; Stop 09/19/19 at 12:46; Status DC Morphine Sulfate (Morphine Sulfate) 2 mg PRN Q4HRS PRN IV PAIN Last administered on 09/20/19at 06:26; Start 09/18/19 at 15:15; Stop 09/20/19 at 09:53; Status DC Ondansetron HCl (Zofran) 4 mg PRN Q6HRS PRN IV N/V, IF COMPAZINE INEFFECTIVE Last administered on 09/19/19at 05:04; Start 09/18/19 at 16:00 Metoprolol Tartrate (Lopressor) 50 mg BID PO Last administered on 09/23/19 08:34; Start 09/18/19 at 21:00 Amlodipine Besylate (Norvasc) 2.5 mg DAILY PO Last administered on 09/23/19 08:34; Start 09/19/19 at 09:00 Enoxaparin Sodium (Lovenox 30mg Syringe) 30 mg Q24H SQ Last administered on 09/18/19at 16:38; Start 09/18/19 at 16:15; Stop 09/19/19 at 16:49; Status DC Ketorolac Tromethamine (Toradol 15mg Vial) 15 mg 1X ONCE IVP Last administered on 09/19/19at 09:45; Start 09/19/19 at 08:30; Stop 09/19/19 at 08:48; Status DC Prochlorperazine Edisylate (Compazine) 10 mg PRN Q6HRS PRN IV N/V, IF 5MG INEFFECTIVE Last administered on 09/19/19at 10:18; Start 09/19/19 at 10:15 Prochlorperazine Edisylate (Compazine) 5 mg PRN Q6HRS PRN IV NAUSEA/VOMITING; Start 09/19/19 at 10:15 Ringer's Solution 1,000 ml @ 50 mls/hr Q20H IV Last administered on 09/23/19at 08:38; Start 09/19/19 at 13:30 Propofol 20 ml @ As Directed STK-MED ONCE IV ; Start 09/19/19 at 13:33; Stop 09/19/19 at 13:34; Status DC Lidocaine HCl (Lidocaine Pf 2% Vial) 5 ml STK-MED ONCE .ROUTE ; Start 09/19/19 at 13:33; Stop 09/19/19 at 13:34; Status DC Ondansetron HCl (Zofran) 4 mg STK-MED ONCE .ROUTE ; Start 09/19/19 at 13:33; Stop 09/19/19 at 13:34; Status DC Dexamethasone Sodium Phosphate (Decadron) 4 mg STK-MED ONCE .ROUTE ; Start 09/19/19 at 13:33; Stop 09/19/19 at 13:34; Status DC Succinylcholine Chloride (Anectine) 200 mg STK-MED ONCE .ROUTE ; Start 09/19/19 at 13:33; Stop 09/19/19 at 13:34; Status DC Sevoflurane (Ultane) 60 ml STK-MED ONCE IH ; Start 09/19/19 at 13:35; Stop 09/19/19 at 13:35; Status DC Iohexol (Omnipaque 300 Mg/ml) 100 ml STK-MED ONCE .ROUTE ; Start 09/19/19 at 14:41; Stop 09/19/19 at 14:41; Status DC Levofloxacin/ Dextrose 100 ml @ As Directed STK-MED ONCE IV ; Start 09/19/19 at 15:16; Stop 09/19/19 at 15:16; Status DC Levofloxacin/ Dextrose 100 ml @ 100 mls/hr 1X ONCE IV Last administered on 09/19/19at 15:18; Start 09/19/19 at 15:30; Stop 09/19/19 at 16:29; Status DC Levofloxacin/ Dextrose 100 ml @ 100 mls/hr Q24H IV ; Start 09/20/19 at 16:00; Stop 09/20/19 at 15:00; Status DC Iohexol (Omnipaque 300 Mg/ml) 50 ml STK-MED ONCE INT CAT Last administered on 09/19/19at 15:25; Start 09/19/19 at 15:25; Stop 09/19/19 at 16:34; Status DC Enoxaparin Sodium (Lovenox 40mg Syringe) 40 mg Q24H SQ ; Start 09/19/19 at 17:00; Stop 09/21/19 at 15:38; Status DC Hydromorphone HCl (Dilaudid) 1 mg PRN Q2HR PRN IV PAIN Last administered on 09/21/19at 22:24; Start 09/20/19 at 10:00 Levofloxacin/ Dextrose 50 ml @ 50 mls/hr Q24H IV Last administered on 09/22/19at 16:42; Start 09/20/19 at 16:00 Ondansetron HCl (Zofran) 4 mg PRN Q6HRS PRN IV NAUSEA/VOMITING; Start 09/21/19 at 09:00; Stop 09/21/19 at 13:35; Status DC Fentanyl Citrate (Fentanyl 2ml Vial) 25 mcg PRN Q5MIN PRN IV MILD PAIN 1-3; Start 09/21/19 at 09:00; Stop 09/21/19 at 13:35; Status DC Fentanyl Citrate (Fentanyl 2ml Vial) 50 mcg PRN Q5MIN PRN IV MODERATE TO SEVERE PAIN; Start 09/21/19 at 09:00; Stop 09/21/19 at 13:35; Status DC Morphine Sulfate (Morphine Sulfate) 1 mg PRN Q10MIN PRN IV SEVERE PAIN 7-10; Start 09/21/19 at 09:00; Stop 09/21/19 at 13:35; Status DC Ringer's Solution 1,000 ml @ 30 mls/hr Q24H IV ; Start 09/21/19 at 08:55; Stop 09/21/19 at 13:35; Status DC Lidocaine HCl (Xylocaine-Mpf 1% 2ml Vial) 2 ml PRN 1X PRN ID PRIOR TO IV START; Start 09/21/19 at 09:00; Stop 09/21/19 at 13:35; Status DC Hydromorphone HCl (Dilaudid) 0.5 mg PRN Q10MIN PRN IV SEV PAIN, Second choice; Start 09/21/19 at 09:00; Stop 09/21/19 at 13:35; Status DC Prochlorperazine Edisylate (Compazine) 5 mg PACU PRN PRN IV NAUSEA, MRX1; Start 09/21/19 at 09:00; Stop 09/21/19 at 13:35; Status DC Iohexol (Omnipaque 300 Mg/ml) 50 ml STK-MED ONCE .ROUTE Last administered on 09/21/19at 10:30; Start 09/21/19 at 09:14; Stop 09/21/19 at 09:14; Status DC Cellulose (Surgicel Hemostat 4x8) 1 each STK-MED ONCE .ROUTE ; Start 09/21/19 at 09:14; Stop 09/21/19 at 09:15; Status DC Bupivacaine HCl (Sensorcaine Mpf 0.5%) 30 ml STK-MED ONCE .ROUTE Last administered on 09/21/19at 10:30; Start 09/21/19 at 09:14; Stop 09/21/19 at 09:15; Status DC Ondansetron HCl (Zofran) 4 mg STK-MED ONCE .ROUTE ; Start 09/21/19 at 09:18; Stop 09/21/19 at 09:19; Status DC Propofol 20 ml @ As Directed STK-MED ONCE IV ; Start 09/21/19 at 09:18; Stop 09/21/19 at 09:19; Status DC Lidocaine HCl (Lidocaine Pf 2% Vial) 5 ml STK-MED ONCE .ROUTE ; Start 09/21/19 at 09:18; Stop 09/21/19 at 09:19; Status DC Dexamethasone Sodium Phosphate (Decadron) 4 mg STK-MED ONCE .ROUTE ; Start 09/21/19 at 09:18; Stop 09/21/19 at 09:19; Status DC Fentanyl Citrate (Fentanyl 2ml Vial) 100 mcg STK-MED ONCE .ROUTE ; Start 09/21/19 at 09:18; Stop 09/21/19 at 09:19; Status DC Succinylcholine Chloride (Anectine) 200 mg STK-MED ONCE .ROUTE ; Start 09/21/19 at 09:18; Stop 09/21/19 at 09:19; Status DC Rocuronium [place] (Zemuron) 50 mg STK-MED ONCE .ROUTE ; Start 09/21/19 at 09:19; Stop 09/21/19 at 09:19; Status DC Cefazolin Sodium 100 ml @ As Directed STK-MED ONCE IV ; Start 09/21/19 at 10:07 ; Stop 09/21/19 at 10:07; Status DC Methylene Blue (Provayblue) 10 ml STK-MED ONCE .ROUTE ; Start 09/21/19 at 10:38; Stop 09/21/19 at 10:39; Status DC Glycopyrrolate (Robinul) 1 mg STK-MED ONCE .ROUTE ; Start 09/21/19 at 11:08; Stop 09/21/19 at 11:08; Status DC Neostigmine Methylsulfate (Neostigmine Methylsulfate) 5 mg STK-MED ONCE .ROUTE ; Start 09/21/19 at 11:08; Stop 09/21/19 at 11:08; Status DC Sevoflurane (Ultane) 60 ml STK-MED ONCE IH ; Start 09/21/19 at 11:28; Stop 09/21/19 at 11:28; Status DC Cefazolin Sodium/ Dextrose 50 ml @ 100 mls/hr 1X PREOP PRN IV preop Last administered on 09/21/19at 10:09; Start 09/21/19 at 12:00; Stop 09/22/19 at 11:59; Status DC Labetalol HCl (Normodyne Iv Push) 10 mg PRN Q10MIN PRN IVP HYPERTENSION Last administered on 09/21/19at 11:55; Start 09/21/19 at 12:00 Labetalol HCl (Normodyne Iv Push) 20 mg 1X ONCE IVP ; Start 09/21/19 at 12:00; Stop 09/21/19 at 12:01; Status DC Enoxaparin Sodium (Lovenox 40mg Syringe) 40 mg Q24H SQ Last administered on 09/22/19at 20:35; Start 09/21/19 at 21:00 Oxycodone HCl (Roxicodone) 5 mg PRN Q6HRS PRN PO PAIN; Start 09/21/19 at 16:30 Docusate Sodium (Colace) 100 mg BID PO Last administered on 09/23/19at 08:35; Start 09/21/19 at 21:00 Polyethylene Glycol (miraLAX PACKET) 17 gm HS PO Last administered on 09/22/19at 20:34; Start 09/21/19 at 21:00 Psyllium Hydrophilic Mucilloid (Metamucil Fiber Packet) 1 pkt HS PO Last administered on 09/22/19at 20:34; Start 09/21/19 at 21:00 Magnesium Hydroxide (Milk Of Magnesia) 2,400 mg PRN DAILY PRN PO CONSTIPATION; Start 09/21/19 at 16:30 Ephedrine Sulfate (ePHEDrine PF IN SALINE SYRINGE) 50 mg STK-MED ONCE IV ; Start 09/20/19 at 12:00; Stop 09/22/19 at 08:58; Status DC Calcium Carbonate/ Glycine (Tums) 500 mg PRN AFTMEALHC PRN PO INDIGESTION Last administered on 09/22/19at 20:34; Start 09/22/19 at 13:00 Famotidine (Pepcid) 20 mg QHS PO Last administered on 09/22/19at 20:34; Start 09/22/19 at 21:00 Lactobacillus Rhamnosus (Culturelle) 1 cap BID PO Last administered on 09/23/19at 08:34; Start 09/22/19 at 21:00 Active Scripts Active Reported Hydrochlorothiazide Tablet (Hydrochlorothiazide) 12.5 Mg Tablet 12.5 Mg PO DAILY Amlodipine Besylate 2.5 Mg Tablet 2.5 Mg PO DAILY Last dose given: 9:00 a.m. Next dose due: 12-19-14 9:00 a.m. Lisinopril 20 Mg Tablet 40 Mg PO DAILY06 Last dose given: 9:00 a.m. Next dose due: 12-19-14 Metoprolol Tartrate 50 Mg Tablet 50 Mg PO BID Last dose given: 9:00 a.m. Next dose due: tonight Vitals/I & O Vital Sign - Last 24 Hours 09/22/19 09/22/19 09/22/19 09/22/19 08:00 09:00 09:00 10:52 Temp 98.0 98.0 Pulse 73 73 83 Resp 18 B/P (MAP) 163/72 163/72 144/66 (92) Pulse Ox 91 O2 Delivery Nasal Cannula Nasal Cannula O2 Flow Rate 1.0 1.0 09/22/19 09/22/19 09/22/19 09/22/19 14:45 19:00 20:00 20:35 Temp 98.0 98.6 98.0 98.6 Pulse 73 82 82 Resp 18 20 B/P (MAP) 168/74 (105) 173/84 (113) 173/84 Pulse Ox 95 90 O2 Delivery Room Air Room Air Room Air 09/22/19 09/23/19 09/23/19 09/23/19 23:00 03:00 07:00 08:34 Temp 99.0 98.2 97.8 99.0 98.2 97.8 Pulse 78 74 88 88 Resp 20 20 18 B/P (MAP) 169/72 (104) 139/78 (98) 176/78 (110) 176/78 Pulse Ox 93 90 92 O2 Delivery Nasal Cannula Room Air Room Air O2 Flow Rate 2.0 09/23/19 08:34 Pulse 88 B/P (MAP) 176/78 Intake and Output 09/22/19 09/23/19 09/23/19 17:00 01:00 09:00 Intake Total 650 ml 500 ml Output Total 100 ml Balance 650 ml -100 ml 500 ml THERESA MARTINEZ MD Sep 23, 2019 09:45
[2019-09-23 10:47] VITALS: BP 164/70
--- NOTE | 2019-09-23 13:39 | PDOC ---
Subjective: Subjective: Better she thinks - eating some - had pain earlier but then stooled, but might want pain meds again - asks about going home today. Objective: Vital Signs: Vital Signs Date Time Temp Pulse Resp B/P (MAP) Pulse Ox O2 Delivery O2 Flow Rate FiO2 09/23/19 10:47 97.9 76 18 164/70 (101) 92 Room Air 97.9 09/22/19 23:00 2.0 PE: GEN: NAD - up in chair LUNGS: CTAB HEART: RRR ABD: NABS, S/ND/NT NEURO/PSYCH: A & O 3, flat A/P: S/p ERCP/sphincterotomy and cholecystectomy Elevated LFTs - improving UTI - Beta hemolytic Streptococcus -- DC per surgery, UTI per primary. DAVY DELONG Sep 23, 2019 13:39
--- NOTE | 2019-09-23 13:45 | NUR ---
SW following for discharge planning. Chart reviewed, discussed with RN. Pt passing gas but has not had BM. Full liquid diet, holding off advancing diet until better bowel function. Pt still has RYAN drain. SW will continue to follow for any discharge planning needs.
[2019-09-23 14:55] VITALS: BP 171/64
[2019-09-23] MEDS ORDERED: POTASSIUM CHL 20MEQ PREMIX 50 ML IV SCH (16:00)
--- NOTE | 2019-09-23 16:00 | NUR ---
LEVAQUIN IV NOT ADMINISTERED AT THIS TIME DUE THIS REHABILITATION SERVICES DIRECTOR WILL START IV POTASSIUM.
[2019-09-23] MEDS: POTASSIUM CHLORIDE 10MEQ 100 ML IV SCH ×4 (16:51→22:46)
[2019-09-23 19:00] VITALS: BP 137/114
[2019-09-23] MEDS: FAMOTIDINE 20 MG TABLET. PO SCH (20:37)
[2019-09-23] MEDS: ENOXAPARIN 40 MG/0.4 ML SYRINGE. SQ SCH (20:39)
[2019-09-23] MEDS: PSYLLIUM HUSK (SUGAR FREE) 1 PKT PACKET PO SCH (20:39)
[2019-09-23] MEDS: POLYETHYLENE GLYCOL 3350 17 GM PACKET. PO SCH ×2 (20:39→20:48)
[2019-09-23 23:00] VITALS: BP 159/79
[2019-09-24 03:00] VITALS: BP 169/71
[2019-09-24 07:00] VITALS: BP 181/78
--- NOTE | 2019-09-24 09:35 | PDOC ---
PROGRESS NOTES Subjective Subjective looks well, no complaints Objective Objective Vital Signs Date Time Temp Pulse Resp B/P (MAP) Pulse Ox O2 Delivery O2 Flow Rate FiO2 09/24/19 07:00 98.5 83 18 181/78 (112) 92 Room Air 98.5 09/22/19 23:00 2.0 Intake and Output 09/24/19 07:00 Intake Total 2450 ml Output Total 650 ml Balance 1800 ml Intake Oral 1100 ml IV Total 1350 ml Output Urine Total 600 ml Drainage Total 50 ml # Voids 4 # Bowel Movements 1 Physical Exam Abdomen: Soft Assessment Assessment Problems Medical Problems: (1) Acute hepatitis Status: Acute (2) Acute kidney injury Status: Acute (3) Dehydration Status: Acute Plan Plan of Care DC matt drain, advance diet; ok to discharge from my standpoint Comment Review of Relevant I have reviewed the following items tatianna (where applicable) has been applied. Labs Laboratory Tests Test 09/23/19 04:02 White Blood Count 11.6 x10^3/uL (4.0-11.0) Red Blood Count 3.50 x10^6/uL (3.50-5.40) Hemoglobin 10.5 g/dL (12.0-15.5) Hematocrit 32.0 % (36.0-47.0) Mean Corpuscular Volume 91 fL (79-100) Mean Corpuscular Hemoglobin 30 pg (25-35) Mean Corpuscular Hemoglobin Concent 33 g/dL (31-37) Red Cell Distribution Width 13.5 % (11.5-14.5) Platelet Count 303 x10^3/uL (140-400) Neutrophils (%) (Auto) 79 % (31-73) Lymphocytes (%) (Auto) 14 % (24-48) Monocytes (%) (Auto) 7 % (0-9) Eosinophils (%) (Auto) 1 % (0-3) Basophils (%) (Auto) 0 % (0-3) Neutrophils # (Auto) 9.2 x10^3/uL (1.8-7.7) Lymphocytes # (Auto) 1.6 x10^3/uL (1.0-4.8) Monocytes # (Auto) 0.8 x10^3/uL (0.0-1.1) Eosinophils # (Auto) 0.1 x10^3/uL (0.0-0.7) Basophils # (Auto) 0.0 x10^3/uL (0.0-0.2) Sodium Level 144 mmol/L (136-145) Potassium Level 3.3 mmol/L (3.5-5.1) Chloride Level 107 mmol/L (98-107) Carbon Dioxide Level 28 mmol/L (21-32) Anion Gap 9 (6-14) Blood Urea Nitrogen 20 mg/dL (7-20) Creatinine 1.1 mg/dL (0.6-1.0) Estimated GFR (Cockcroft-Gault) 48.7 BUN/Creatinine Ratio 18 (6-20) Glucose Level 94 mg/dL (70-99) Calcium Level 8.6 mg/dL (8.5-10.1) Total Bilirubin 0.8 mg/dL (0.2-1.0) Aspartate Amino Transf (AST/SGOT) 26 U/L (15-37) Alanine Aminotransferase (ALT/SGPT) 111 U/L (14-59) Alkaline Phosphatase 192 U/L (46-116) Total Protein 5.9 g/dL (6.4-8.2) Albumin 2.0 g/dL (3.4-5.0) Albumin/Globulin Ratio 0.5 (1.0-1.7) Microbiology 09/18/19 Urine Culture - Final, Complete 09/18/19 Urine Culture Result 1 (KARLA) - Final, Complete Medications Current Medications Fentanyl Citrate (Fentanyl 2ml Vial) 25 mcg PRN Q15MIN PRN IV PAIN GREATER THAN 3/10 Last administered on 09/18/19at 09:06; Start 09/18/19 at 08:45; Stop 09/18/19 at 15:21; Status DC Sodium Chloride 1,000 ml @ 1,000 mls/hr Q1H IV Last administered on 09/18/19at 09:05; Start 09/18/19 at 08:43; Stop 09/18/19 at 09:42; Status DC Ondansetron HCl (Zofran) 4 mg 1X ONCE IV Last administered on 09/18/19at 09:06; Start 09/18/19 at 08:45; Stop 09/18/19 at 08:46; Status DC Ondansetron HCl (Zofran) 4 mg 1X ONCE IV Last administered on 09/18/19 12:34; Start 09/18/19 at 12:30; Stop 09/18/19 at 12:35; Status DC Ondansetron HCl (Zofran) 4 mg PRN Q8HRS PRN IV NAUSEA/VOMITING Last administered on 09/18/19at 15:48; Start 09/18/19 at 13:00; Stop 09/18/19 at 16:08; Status DC Sodium Chloride 1,000 ml @ 125 mls/hr Q8H IV Last administered on 09/19/19at 17:11; Start 09/18/19 at 12:47; Stop 09/19/19 at 12:46; Status DC Morphine Sulfate (Morphine Sulfate) 2 mg PRN Q4HRS PRN IV PAIN Last administered on 09/20/19 06:26; Start 09/18/19 at 15:15; Stop 09/20/19 at 09:53; Status DC Ondansetron HCl (Zofran) 4 mg PRN Q6HRS PRN IV N/V, IF COMPAZINE INEFFECTIVE Last administered on 09/19/19 05:04; Start 09/18/19 at 16:00 Metoprolol Tartrate (Lopressor) 50 mg BID PO Last administered on 09/23/19 20:38; Start 09/18/19 at 21:00 Amlodipine Besylate (Norvasc) 2.5 mg DAILY PO Last administered on 09/23/19 08:34; Start 09/19/19 at 09:00 Enoxaparin Sodium (Lovenox 30mg Syringe) 30 mg Q24H SQ Last administered on 09/18/19at 16:38; Start 09/18/19 at 16:15; Stop 09/19/19 at 16:49; Status DC Ketorolac Tromethamine (Toradol 15mg Vial) 15 mg 1X ONCE IVP Last administered on 09/19/19 09:45; Start 09/19/19 at 08:30; Stop 09/19/19 at 08:48; Status DC Prochlorperazine Edisylate (Compazine) 10 mg PRN Q6HRS PRN IV N/V, IF 5MG INEFFECTIVE Last administered on 09/19/19at 10:18; Start 09/19/19 at 10:15 Prochlorperazine Edisylate (Compazine) 5 mg PRN Q6HRS PRN IV NAUSEA/VOMITING; Start 09/19/19 at 10:15 Ringer's Solution 1,000 ml @ 50 mls/hr Q20H IV Last administered on 09/23/19at 22:50; Start 09/19/19 at 13:30 Propofol 20 ml @ As Directed STK-MED ONCE IV ; Start 09/19/19 at 13:33; Stop 09/19/19 at 13:34; Status DC Lidocaine HCl (Lidocaine Pf 2% Vial) 5 ml STK-MED ONCE .ROUTE ; Start 09/19/19 at 13:33; Stop 09/19/19 at 13:34; Status DC Ondansetron HCl (Zofran) 4 mg STK-MED ONCE .ROUTE ; Start 09/19/19 at 13:33; Stop 09/19/19 at 13:34; Status DC Dexamethasone Sodium Phosphate (Decadron) 4 mg STK-MED ONCE .ROUTE ; Start 08/23 07/10 at 13:33; Stop 09/19/19 at 13:34; Status DC Succinylcholine Chloride (Anectine) 200 mg STK-MED ONCE .ROUTE ; Start 09/19/19 at 13:33; Stop 09/19/19 at 13:34; Status DC Sevoflurane (Ultane) 60 ml STK-MED ONCE IH ; Start 09/19/19 at 13:35; Stop 1 11/19/18 at 13:35; Status DC Iohexol (Omnipaque 300 Mg/ml) 100 ml STK-MED ONCE .ROUTE ; Start 09/19/19 at 14:41; Stop 09/19/19 at 14:41; Status DC Levofloxacin/ Dextrose 100 ml @ As Directed STK-MED ONCE IV ; Start 09/19/19 at 15:16; Stop 09/19/19 at 15:16; Status DC Levofloxacin/ Dextrose 100 ml @ 100 mls/hr 1X ONCE IV Last administered on 09/19/19at 15:18; Start 09/19/19 at 15:30; Stop 09/19/19 at 16:29; Status DC Levofloxacin/ Dextrose 100 ml @ 100 mls/hr Q24H IV ; Start 09/20/19 at 16:00; Stop 09/20/19 at 15:00; Status DC Iohexol (Omnipaque 300 Mg/ml) 50 ml STK-MED ONCE INT CAT Last administered on 09/19/19at 15:25; Start 09/19/19 at 15:25; Stop 09/19/19 at 16:34; Status DC Enoxaparin Sodium (Lovenox 40mg Syringe) 40 mg Q24H SQ ; Start 09/19/19 at 17:00; Stop 09/21/19 at 15:38; Status DC Hydromorphone HCl (Dilaudid) 1 mg PRN Q2HR PRN IV PAIN Last administered on 09/21/19at 22:24; Start 09/20/19 at 10:00 Levofloxacin/ Dextrose 50 ml @ 50 mls/hr Q24H IV Last administered on 09/23/19at 20:39; Start 09/20/19 at 16:00 Ondansetron HCl (Zofran) 4 mg PRN Q6HRS PRN IV NAUSEA/VOMITING; Start 09/21/19 at 09:00; Stop 09/21/19 at 13:35; Status DC Fentanyl Citrate (Fentanyl 2ml Vial) 25 mcg PRN Q5MIN PRN IV MILD PAIN 1-3; Start 09/21/19 at 09:00; Stop 09/21/19 at 13:35; Status DC Fentanyl Citrate (Fentanyl 2ml Vial) 50 mcg PRN Q5MIN PRN IV MODERATE TO SEVERE PAIN; Start 09/21/19 at 09:00; Stop 09/21/19 at 13:35; Status DC Morphine Sulfate (Morphine Sulfate) 1 mg PRN Q10MIN PRN IV SEVERE PAIN 7-10; Start 09/21/19 at 09:00; Stop 09/21/19 at 13:35; Status DC Ringer's Solution 1,000 ml @ 30 mls/hr Q24H IV ; Start 09/21/19 at 08:55; Stop 09/21/19 at 13:35; Status DC Lidocaine HCl (Xylocaine-Mpf 1% 2ml Vial) 2 ml PRN 1X PRN ID PRIOR TO IV START; Start 09/21/19 at 09:00; Stop 09/21/19 at 13:35; Status DC Hydromorphone HCl (Dilaudid) 0.5 mg PRN Q10MIN PRN IV SEV PAIN, Second choice; Start 09/21/19 at 09:00; Stop 09/21/19 at 13:35; Status DC Prochlorperazine Edisylate (Compazine) 5 mg PACU PRN PRN IV NAUSEA, MRX1; Start 09/21/19 at 09:00; Stop 09/21/19 at 13:35; Status DC Iohexol (Omnipaque 300 Mg/ml) 50 ml STK-MED ONCE .ROUTE Last administered on 09/21/19at 10:30; Start 09/21/19 at 09:14; Stop 09/21/19 at 09:14; Status DC Cellulose (Surgicel Hemostat 4x8) 1 each STK-MED ONCE .ROUTE ; Start 09/21/19 at 09:14; Stop 09/21/19 at 09:15; Status DC Bupivacaine HCl (Sensorcaine Mpf 0.5%) 30 ml STK-MED ONCE .ROUTE Last administered on 09/21/19at 10:30; Start 09/21/19 at 09:14; Stop 09/21/19 at 09:15 ; Status DC Ondansetron HCl (Zofran) 4 mg STK-MED ONCE .ROUTE ; Start 09/21/19 at 09:18; Stop 09/21/19 at 09:19; Status DC Propofol 20 ml @ As Directed STK-MED ONCE IV ; Start 09/21/19 at 09:18; Stop 09/21/19 at 09:19; Status DC Lidocaine HCl (Lidocaine Pf 2% Vial) 5 ml STK-MED ONCE .ROUTE ; Start 09/21/19 at 09:18; Stop 09/21/19 at 09:19; Status DC Dexamethasone Sodium Phosphate (Decadron) 4 mg STK-MED ONCE .ROUTE ; Start 09/21/19 at 09:18; Stop 12 at 09:19; Status DC Fentanyl Citrate (Fentanyl 2ml Vial) 100 mcg STK-MED ONCE .ROUTE ; Start 09/21/19 at 09:18; Stop 09/21/19 at 09:19; Status DC Succinylcholine Chloride (Anectine) 200 mg STK-MED ONCE .ROUTE ; Start 09/21/19 at 09:18; Stop 09/21/19 at 09:19; Status DC Rocuronium Riva (Zemuron) 50 mg STK-MED ONCE .ROUTE ; Start 09/21/19 at 09:19; Stop 09/21/19 at 09:19; Status DC Cefazolin Sodium 100 ml @ As Directed STK-MED ONCE IV ; Start 09/21/19 at 10:07; Stop 09/21/19 at 10:07; Status DC Methylene Blue (Provayblue) 10 ml STK-MED ONCE .ROUTE ; Start 09/21/19 at 10:38; Stop 09/21/19 at 10:39; Status DC Glycopyrrolate (Robinul) 1 mg STK-MED ONCE .ROUTE ; Start 09/21/19 at 11:08; Stop 09/21/19 at 11:08; Status DC Neostigmine Methylsulfate (Neostigmine Methylsulfate) 5 mg STK-MED ONCE .ROUTE ; Start 09/21/19 at 11:08; Stop 09/21/19 at 11:08; Status DC Sevoflurane (Ultane) 60 ml STK-MED ONCE IH ; Start 09/21/19 at 11:28; Stop 09/21/19 at 11:28; Status DC Cefazolin Sodium/ Dextrose 50 ml @ 100 mls/hr 1X PREOP PRN IV preop Last administered on 09/21/19at 10:09; Start 09/21/19 at 12:00; Stop 09/22/19 at 11:59; Status DC Labetalol HCl (Normodyne Iv Push) 10 mg PRN Q10MIN PRN IVP HYPERTENSION Last administered on 09/21/19at 11:55; Start 09/21/19 at 12:00 Labetalol HCl (Normodyne Iv Push) 20 mg 1X ONCE IVP ; Start 09/21/19 at 12:00; Stop 09/21/19 at 12:01; Status DC Enoxaparin Sodium (Lovenox 40mg Syringe) 40 mg Q24H SQ Last administered on 09/23/19at 20:39; Start 09/21/19 at 21:00 Oxycodone HCl (Roxicodone) 5 mg PRN Q6HRS PRN PO PAIN Last administered on 09/23/19at 14:04; Start 09/21/19 at 16:30 Docusate Sodium (Colace) 100 mg BID PO Last administered on 12/3/19at 20:37; Start 09/21/19 at 21:00 Polyethylene Glycol (miraLAX PACKET) 17 gm HS PO Last administered on 09/22/19 20:34; Start 09/21/19 at 21:00 Psyllium Hydrophilic Mucilloid (Metamucil Fiber Packet) 1 pkt HS PO Last administered on 09/23/19 20:39; Start 09/21/19 at 21:00 Magnesium Hydroxide (Milk Of Magnesia) 2,400 mg PRN DAILY PRN PO CONSTIPATION; Start 09/21/19 at 16:30 Ephedrine Sulfate (ePHEDrine PF IN SALINE SYRINGE) 50 mg STK-MED ONCE IV ; Start 09/20/19 at 12:00; Stop 09/22/19 at 08:58; Status DC Calcium Carbonate/ Glycine (Tums) 500 mg PRN AFTMEALHC PRN PO INDIGESTION Last administered on 09/22/19 20:34; Start 09/22/19 at 13:00 Famotidine (Pepcid) 20 mg QHS PO Last administered on 09/23/19 20:37; Start 09/22/19 at 21:00 Lactobacillus Rhamnosus (Culturelle) 1 cap BID PO Last administered on 09/23/19 20:38; Start 09/22/19 at 21:00 Potassium Chloride/Water 50 ml @ 50 mls/hr Q1H IV ; Start 09/23/19 at 16:00; Stop 09/23/19 at 17:59; Status UNV Potassium Chloride/Water 100 ml @ 100 mls/hr Q1H IV Last administered on 09/23/19at 22:46; Start 09/23/19 at 16:15; Stop 09/23/19 at 20:14; Status DC Active Scripts Active Reported Hydrochlorothiazide Tablet (Hydrochlorothiazide) 12.5 Mg Tablet 12.5 Mg PO DAILY Amlodipine Besylate 2.5 Mg Tablet 2.5 Mg PO DAILY Last dose given: 9:00 a.m. Next dose due: 12-19-14 9:00 a.m. Lisinopril 20 Mg Tablet 40 Mg PO DAILY06 Last dose given: 9:00 a.m. Next dose due: 12-19-14 Metoprolol Tartrate 50 Mg Tablet 50 Mg PO BID Last dose given: 9:00 a.m. Next dose due: tonight Vitals/I & O Vital Sign - Last 24 Hours 09/23/19 09/23/19 09/23/19 09/23/19 10:47 14:04 14:55 15:15 Temp 97.9 97.9 97.9 97.9 Pulse 76 65 Resp 18 19 18 20 B/P (MAP) 164/70 (101) 171/64 (99) Pulse Ox 92 94 92 94 O2 Delivery Room Air Room Air Room Air Room Air 09/23/19 09/23/19 09/23/19 09/23/19 19:00 19:15 20:38 23:00 Temp 98.4 98.5 98.4 98.5 Pulse 85 85 65 Resp 20 18 B/P (MAP) 137/114 (122) 159/79 (105) Pulse Ox 91 91 O2 Delivery Room Air Room Air Room Air 09/24/19 09/24/19 03:00 07:00 Temp 98.2 98.5 98.2 98.5 Pulse 71 83 Resp 18 18 B/P (MAP) 169/71 (103) 181/78 (112) Pulse Ox 93 92 O2 Delivery Room Air Room Air Intake and Output 09/23/19 09/23/19 09/24/19 15:00 23:00 07:00 Intake Total 500 ml 1750 ml 200 ml Output Total 650 ml Balance 500 ml 1750 ml -450 ml PETE FABIAN MD Sep 24, 2019 09:35
[2019-09-24] MEDS: amLODIPine BESYLATE 5 MG TABLET PO SCH (09:40)
[2019-09-24] MEDS: DOCUSATE SODIUM 100 MG CAPSULE. PO SCH (09:41)
[2019-09-24] MEDS: LACTOBACILLUS RHAMNOSUS GG 1 CAPSULE. PO SCH (09:41)
[2019-09-24] MEDS: METOPROLOL TART IMMED RELEASE 50 MG TABLET. PO SCH (09:41)
--- NOTE | 2019-09-24 10:07 | PATHOLOGY ---
[facility] Accession Number: [id number] . 01 Material submitted: . gallbladder - GALLBLADDER . 01 Clinical history: . Cholelithiasis . 02 Diagnosis: Gallbladder, laparoscopic cholecystectomy: - Cholelithiasis. - Active chronic follicular cholecystitis. . (JPM:rahul; 09/23/2019) QMS 09/23/2019 1345 Local . 02 Comment: There is no evidence of malignancy. . 02 Electronically signed: . Dav Valles MD, Pathologist NPI- [id number] . 01 Gross description: . The specimen is received in formalin labeled "Zapata, Charito, gallbladder" and consists of an intact young-gore and dusky gallbladder measuring 8.8 x 3.0 x 2.5 cm. The margin is inked black. Opening reveals a lumen filled with tenacious green bile and multiple smooth to multifaceted gore-brown calculi measuring between 0.1 cm and 2.0 cm. The mucosa is green eroded with scattered yellow flecks and an average wall thickness of 0.1-0.2 cm. No masses are identified. Production Recorder sections are submitted in A1. (SDY; 09/22/2019) /SYU 09/22/2019 1708 Local . 02 Pathologist provided ICD-10: K80.10 . 02 CPT . 422676 Specimen Comment: A courtesy copy of this report has been sent to [phone] Specimen Comment: [id number], Specimen Comment: Report sent to ,DR CHU / DR JONES Performed at: [address], [place], [place] [id number] MD Home Servin MD Phone: [phone] Performed at: [address] [id number] MD Dav Valles MD Phone: [phone]
[2019-09-24 11:00] VITALS: BP 157/78
--- NOTE | 2019-09-24 11:17 | PDOC ---
PROGRESS NOTES Chief Complaint Chief Complaint DISCHARGE DX acute Choledocholithiasis - admitted for Intractable abdominal pain - acute hepatitis S/p ERCP 09/19 Nausea and vomiting - possibly gastroenteritis, definitely with a mild pancreatitis and hepatitis 2/2 choledocholithiasis. Will give anti-emetics, pain control. Bowel rest. GI for ERCP NADIR - vasomotor nephropathy likely 2/2 vomiting and poor recent PO intake, will hydrate Hyperglycemia - likely reactive, will trend Acute transaminitis - as above, consult GI. NPO, trend LFTs. RUQ imaging via US confirms choledocholithiasis Leukocytosis - with tachycardia, she has SIRS, this is likely reactive given her recent vomiting, possibly also having a viral gastroenteritis, will trend. Will initiate antibiotics Non-obstructive left nephrolithiasis - S/p ERCP/sphincterotomy and cholecystectomy D/C PLANNING 36 MIN History of Present Illness History of Present Illness s/p basil pain better po intake imrpovd, complains of heartburn, will start tums post-op lap basil. improved appetite. Pain much better controlled with transition to dilaudid - some flatus [facility] Accession Number: [id number] . 01 Material submitted: . gallbladder - GALLBLADDER . 01 Clinical history: . Cholelithiasis . 02 Diagnosis: Gallbladder, laparoscopic cholecystectomy: - Cholelithiasis. - Active chronic follicular cholecystitis. . (DEDRICK:rahul; 09/23/2019) QMS 09/23/2019 1345 Local . 02 Comment: There is no evidence of malignancy. . 02 Plan: Dilaudid 1mg pRN Consult general surgery Vitals Vitals Vital Signs Date Time Temp Pulse Resp B/P (MAP) Pulse Ox O2 Delivery O2 Flow Rate FiO2 09/24/19 09:41 83 181/78 09/24/19 08:00 Room Air 09/24/19 07:00 98.5 18 92 98.5 Physical Exam General: Alert, Oriented X3, Cooperative Heart: Regular rate, Normal S1, Normal S2 Lungs: Clear Abdomen: Soft Extremities: No clubbing, No cyanosis Skin: No rashes, No breakdown Assessment and Plan Assessmemt and Plan Problems Medical Problems: (1) Acute hepatitis Status: Acute (2) Acute kidney injury Status: Acute (3) Dehydration Status: Acute Comment Review of Relevant I have reviewed the following items tatianna (where applicable) has been applied. Labs Laboratory Tests Test 09/23/19 04:02 White Blood Count 11.6 x10^3/uL (4.0-11.0) Red Blood Count 3.50 x10^6/uL (3.50-5.40) Hemoglobin 10.5 g/dL (12.0-15.5) Hematocrit 32.0 % (36.0-47.0) Mean Corpuscular Volume 91 fL (79-100) Mean Corpuscular Hemoglobin 30 pg (25-35) Mean Corpuscular Hemoglobin Concent 33 g/dL (31-37) Red Cell Distribution Width 13.5 % (11.5-14.5) Platelet Count 303 x10^3/uL (140-400) Neutrophils (%) (Auto) 79 % (31-73) Lymphocytes (%) (Auto) 14 % (24-48) Monocytes (%) (Auto) 7 % (0-9) Eosinophils (%) (Auto) 1 % (0-3) Basophils (%) (Auto) 0 % (0-3) Neutrophils # (Auto) 9.2 x10^3/uL (1.8-7.7) Lymphocytes # (Auto) 1.6 x10^3/uL (1.0-4.8) Monocytes # (Auto) 0.8 x10^3/uL (0.0-1.1) Eosinophils # (Auto) 0.1 x10^3/uL (0.0-0.7) Basophils # (Auto) 0.0 x10^3/uL (0.0-0.2) Sodium Level 144 mmol/L (136-145) Potassium Level 3.3 mmol/L (3.5-5.1) Chloride Level 107 mmol/L (98-107) Carbon Dioxide Level 28 mmol/L (21-32) Anion Gap 9 (6-14) Blood Urea Nitrogen 20 mg/dL (7-20) Creatinine 1.1 mg/dL (0.6-1.0) Estimated GFR (Cockcroft-Gault) 48.7 BUN/Creatinine Ratio 18 (6-20) Glucose Level 94 mg/dL (70-99) Calcium Level 8.6 mg/dL (8.5-10.1) Total Bilirubin 0.8 mg/dL (0.2-1.0) Aspartate Amino Transf (AST/SGOT) 26 U/L (15-37) Alanine Aminotransferase (ALT/SGPT) 111 U/L (14-59) Alkaline Phosphatase 192 U/L (46-116) Total Protein 5.9 g/dL (6.4-8.2) Albumin 2.0 g/dL (3.4-5.0) Albumin/Globulin Ratio 0.5 (1.0-1.7) Microbiology 09/18/19 Urine Culture - Final, Complete 09/18/19 Urine Culture Result 1 (KARLA) - Final, Complete Medications Current Medications Fentanyl Citrate (Fentanyl 2ml Vial) 25 mcg PRN Q15MIN PRN IV PAIN GREATER THAN 3/10 Last administered on 09/18/19at 09:06; Start 09/18/19 at 08:45; Stop 09/18/19 at 15:21; Status DC Sodium Chloride 1,000 ml @ 1,000 mls/hr Q1H IV Last administered on 09/18/19at 09:05; Start 09/18/19 at 08:43; Stop 09/18/19 at 09:42; Status DC Ondansetron HCl (Zofran) 4 mg 1X ONCE IV Last administered on 09/18/19at 09:06; Start 09/18/19 at 08:45; Stop 09/18/19 at 08:46; Status DC Ondansetron HCl (Zofran) 4 mg 1X ONCE IV Last administered on 09/18/19at 12:34; Start 09/18/19 at 12:30; Stop 09/18/19 at 12:35; Status DC Ondansetron HCl (Zofran) 4 mg PRN Q8HRS PRN IV NAUSEA/VOMITING Last administered on 09/18/19 15:48; Start 09/18/19 at 13:00; Stop 09/18/19 at 16:08; Status DC Sodium Chloride 1,000 ml @ 125 mls/hr Q8H IV Last administered on 09/19/19at 17:11; Start 09/18/19 at 12:47; Stop 09/19/19 at 12:46; Status DC Morphine Sulfate (Morphine Sulfate) 2 mg PRN Q4HRS PRN IV PAIN Last administered on 09/20/19 06:26; Start 09/18/19 at 15:15; Stop 09/20/19 at 09:53; Status DC Ondansetron HCl (Zofran) 4 mg PRN Q6HRS PRN IV N/V, IF COMPAZINE INEFFECTIVE Last administered on 09/19/19 05:04; Start 09/18/19 at 16:00 Metoprolol Tartrate (Lopressor) 50 mg BID PO Last administered on 09/24/19 09:41; Start 09/18/19 at 21:00 Amlodipine Besylate (Norvasc) 2.5 mg DAILY PO Last administered on 09/24/19 09:40; Start 09/19/19 at 09:00 Enoxaparin Sodium (Lovenox 30mg Syringe) 30 mg Q24H SQ Last administered on 09/18/19at 16:38; Start 09/18/19 at 16:15; Stop 09/19/19 at 16:49; Status DC Ketorolac Tromethamine (Toradol 15mg Vial) 15 mg 1X ONCE IVP Last administered on 09/19/19 09:45; Start 09/19/19 at 08:30; Stop 09/19/19 at 08:48; Status DC Prochlorperazine Edisylate (Compazine) 10 mg PRN Q6HRS PRN IV N/V, IF 5MG INEFFECTIVE Last administered on 09/19/19at 10:18; Start 09/19/19 at 10:15 Prochlorperazine Edisylate (Compazine) 5 mg PRN Q6HRS PRN IV MILD NAUSEA/VOMITING; Start 09/19/19 at 10:15 Ringer's Solution 1,000 ml @ 50 mls/hr Q20H IV Last administered on 09/23/19at 22:50; Start 09/19/19 at 13:30 Propofol 20 ml @ As Directed STK-MED ONCE IV ; Start 09/19/19 at 13:33; Stop 09/19/19 at 13:34; Status DC Lidocaine HCl (Lidocaine Pf 2% Vial) 5 ml STK-MED ONCE .ROUTE ; Start 09/19/19 at 13:33; Stop 09/19/19 at 13:34; Status DC Ondansetron HCl (Zofran) 4 mg STK-MED ONCE .ROUTE ; Start 09/19/19 at 13:33; S top 09/19/19 at 13:34; Status DC Dexamethasone Sodium Phosphate (Decadron) 4 mg STK-MED ONCE .ROUTE ; Start 09/19/19 at 13:33; Stop 09/19/19 at 13:34; Status DC Succinylcholine Chloride (Anectine) 200 mg STK-MED ONCE .ROUTE ; Start 09/19/19 at 13:33; Stop 09/19/19 at 13:34; Status DC Sevoflurane (Ultane) 60 ml STK-MED ONCE IH ; Start 09/19/19 at 13:35; Stop 09/19/19 at 13:35; Status DC Iohexol (Omnipaque 300 Mg/ml) 100 ml STK-MED ONCE .ROUTE ; Start 09/19/19 at 14:41; Stop 09/19/19 at 14:41; Status DC Levofloxacin/ Dextrose 100 ml @ As Directed STK-MED ONCE IV ; Start 09/19/19 at 15:16; Stop 09/19/19 at 15:16; Status DC Levofloxacin/ Dextrose 100 ml @ 100 mls/hr 1X ONCE IV Last administered on 09/19/19at 15:18; Start 09/19/19 at 15:30; Stop 09/19/19 at 16:29; Status DC Levofloxacin/ Dextrose 100 ml @ 100 mls/hr Q24H IV ; Start 09/20/19 at 16:00; Stop 09/20/19 at 15:00; Status DC Iohexol (Omnipaque 300 Mg/ml) 50 ml STK-MED ONCE INT CAT Last administered on 09/19/19at 15:25; Start 09/19/19 at 15:25; Stop 09/19/19 at 16:34; Status DC Enoxaparin Sodium (Lovenox 40mg Syringe) 40 mg Q24H SQ ; Start 09/19/19 at 17:00; Stop 09/21/19 at 15:38; Status DC Hydromorphone HCl (Dilaudid) 1 mg PRN Q2HR PRN IV SEVERE PAIN 7-10 Last administered on 09/21/19at 22:24; Start 09/20/19 at 10:00 Levofloxacin/ Dextrose 50 ml @ 50 mls/hr Q24H IV Last administered on 09/23/19at 20:39; Start 09/20/19 at 16:00; Stop 09/24/19 at 11:02; Status DC Ondansetron HCl (Zofran) 4 mg PRN Q6HRS PRN IV NAUSEA/VOMITING; Start 09/21/19 at 09:00; Stop 09/21/19 at 13:35; Status DC Fentanyl Citrate (Fentanyl 2ml Vial) 25 mcg PRN Q5MIN PRN IV MILD PAIN 1-3; Start 09/21/19 at 09:00; Stop 09/21/19 at 13:35; Status DC Fentanyl Citrate (Fentanyl 2ml Vial) 50 mcg PRN Q5MIN PRN IV MODERATE TO SEVERE PAIN; Start 09/21/19 at 09:00; Stop 09/21/19 at 13:35; Status DC Morphine Sulfate (Morphine Sulfate) 1 mg PRN Q10MIN PRN IV SEVERE PAIN 7-10; Start 09/21/19 at 09:00; Stop 09/21/19 at 13:35; Status DC Ringer's Solution 1,000 ml @ 30 mls/hr Q24H IV ; Start 09/21/19 at 08:55; Stop 09/21/19 at 13:35; Status DC Lidocaine HCl (Xylocaine-Mpf 1% 2ml Vial) 2 ml PRN 1X PRN ID PRIOR TO IV START; Start 09/21/19 at 09:00; Stop 09/21/19 at 13:35; Status DC Hydromorphone HCl (Dilaudid) 0.5 mg PRN Q10MIN PRN IV SEV PAIN, Second choice; Start 09/21/19 at 09:00; Stop 09/21/19 at 13:35; Status DC Prochlorperazine Edisylate (Compazine) 5 mg PACU PRN PRN IV NAUSEA, MRX1; Start 09/21/19 at 09:00; Stop 09/21/19 at 13:35; Status DC Iohexol (Omnipaque 300 Mg/ml) 50 ml STK-MED ONCE .ROUTE Last administered on 09/21/19at 10:30; Start 09/21/19 at 09:14; Stop 09/21/19 at 09:14; Status DC Cellulose (Surgicel Hemostat 4x8) 1 each STK-MED ONCE .ROUTE ; Start 09/21/19 at 09:14; Stop 09/21/19 at 09:15; Status DC Bupivacaine HCl (Sensorcaine Mpf 0.5%) 30 ml STK-MED ONCE .ROUTE Last administered on 09/21/19at 10:30; Start 09/21/19 at 09:14; Stop 09/21/19 at 09:15; Status DC Ondansetron HCl (Zofran) 4 mg STK-MED ONCE .ROUTE ; Start 09/21/19 at 09:18; Stop 09/21/19 at 09:19; Status DC Propofol 20 ml @ As Directed STK-MED ONCE IV ; Start 09/21/19 at 09:18; Stop 09/21/19 at 09:19; Status DC Lidocaine HCl (Lidocaine Pf 2% Vial) 5 ml STK-MED ONCE .ROUTE ; Start 09/21/19 at 09:18; Stop 09/21/19 at 09:19; Status DC Dexamethasone Sodium Phosphate (Decadron) 4 mg STK-MED ONCE .ROUTE ; Start 09/21/19 at 09:18; Stop 09/21/19 at 09:19; Status DC Fentanyl Citrate (Fentanyl 2ml Vial) 100 mcg STK-MED ONCE .ROUTE ; Start 09/21/19 at 09:18; Stop 09/21/19 at 09:19; Status DC Succinylcholine Chloride (Anectine) 200 mg STK-MED ONCE .ROUTE ; Start 09/21/19 at 09:18; Stop 09/21/19 at 09:19; Status DC Rocuronium [place] (Zemuron) 50 mg STK-MED ONCE .ROUTE ; Start 09/21/19 at 09:19; Stop 09/21/19 at 09:19; Status DC Cefazolin Sodium 100 ml @ As Directed STK-MED ONCE IV ; Start 09/21/19 at 10:07; Stop 09/21/19 at 10:07; Status DC Methylene Blue (Provayblue) 10 ml STK-MED ONCE .ROUTE ; Start 09/21/19 at 10:38; Stop 09/21/19 at 10:39; Status DC Glycopyrrolate (Robinul) 1 mg STK-MED ONCE .ROUTE ; Start 09/21/19 at 11:08; Stop 09/21/19 at 11:08; Status DC Neostigmine Methylsulfate (Neostigmine Methylsulfate) 5 mg STK-MED ONCE .ROUTE ; Start 09/21/19 at 11:08; Stop 09/21/19 at 11:08; Status DC Sevoflurane (Ultane) 60 ml STK-MED ONCE IH ; Start 09/21/19 at 11:28; Stop 09/21/19 at 11:28; Status DC Cefazolin Sodium/ Dextrose 50 ml @ 100 mls/hr 1X PREOP PRN IV preop Last administered on 09/21/19at 10:09; Start 09/21/19 at 12:00; Stop 09/22/19 at 11:59; Status DC Labetalol HCl (Normodyne Iv Push) 10 mg PRN Q10MIN PRN IVP HYPERTENSION SBP>160 Last administered on 09/21/19at 11:55; Start 09/21/19 at 12:00 Labetalol HCl (Normodyne Iv Push) 20 mg 1X ONCE IVP ; Start 09/21/19 at 12:00; Stop 09/21/19 at 12:01; Status DC Enoxaparin Sodium (Lovenox 40mg Syringe) 40 mg Q24H SQ Last administered on 09/23/19at 20:39; Start 09/21/19 at 21:00 Oxycodone HCl (Roxicodone) 5 mg PRN Q6HRS PRN PO SEVERE PAIN 7-10 Last administered on 09/23/19at 14:04; Start 09/21/19 at 16:30 Docusate Sodium (Colace) 100 mg BID PO Last administered on 09/24/19at 09:41; Start 09/21/19 at 21:00 Polyethylene Glycol (miraLAX PACKET) 17 gm HS PO Last administered on 09/22/19at 20:34; Start 09/21/19 at 21:00 Psyllium Hydrophilic Mucilloid (Metamucil Fiber Packet) 1 pkt HS PO Last administered on 09/23/19at 20:39; Start 09/21/19 at 21:00 Magnesium Hydroxide (Milk Of Magnesia) 2,400 mg PRN DAILY PRN PO CONSTIPATION 1ST CHOICE; Start 09/21/19 at 16:30 Ephedrine Sulfate (ePHEDrine PF IN SALINE SYRINGE) 50 mg STK-MED ONCE IV ; Start 09/20/19 at 12:00; Stop 09/22/19 at 08:58; Status DC Calcium Carbonate/ Glycine (Tums) 500 mg PRN AFTMEALHC PRN PO INDIGESTION 1ST CHOICE Last administered on 09/22/19at 20:34; Start 09/22/19 at 13:00 Famotidine (Pepcid) 20 mg QHS PO Last administered on 09/23/19at 20:37; Start 09/22/19 at 21:00 Lactobacillus Rhamnosus (Culturelle) 1 cap BID PO Last administered on 09/24/19a t 09:41; Start 09/22/19 at 21:00 Potassium Chloride/Water 50 ml @ 50 mls/hr Q1H IV ; Start 09/23/19 at 16:00; Stop 09/23/19 at 17:59; Status UNV Potassium Chloride/Water 100 ml @ 100 mls/hr Q1H IV Last administered on 09/23/19at 22:46; Start 09/23/19 at 16:15; Stop 09/23/19 at 20:14; Status DC Levofloxacin (Levaquin) 250 mg Q24H PO ; Start 09/24/19 at 16:00 Active Scripts Active Reported Hydrochlorothiazide Tablet (Hydrochlorothiazide) 12.5 Mg Tablet 12.5 Mg PO DAILY Amlodipine Besylate 2.5 Mg Tablet 2.5 Mg PO DAILY Last dose given: 9:00 a.m. Next dose due: 12-19-14 9:00 a.m. Lisinopril 20 Mg Tablet 40 Mg PO DAILY06 Last dose given: 9:00 a.m. Next dose due: 12-19-14 Metoprolol Tartrate 50 Mg Tablet 50 Mg PO BID Last dose given: 9:00 a.m. Next dose due: tonight Vitals/I & O Vital Sign - Last 24 Hours 09/23/19 09/23/19 09/23/19 09/23/19 14:04 14:55 15:15 19:00 Temp 97.9 98.4 97.9 98.4 Pulse 65 85 Resp 19 18 20 20 B/P (MAP) 171/64 (99) 137/114 (122) Pulse Ox 94 92 94 91 O2 Delivery Room Air Room Air Room Air Room Air 09/23/19 09/23/19 09/23/19 09/24/19 19:15 20:38 23:00 03:00 Temp 98.5 98.2 98.5 98.2 Pulse 85 65 71 Resp 18 18 B/P (MAP) 159/79 (105) 169/71 (103) Pulse Ox 91 93 O2 Delivery Room Air Room Air Room Air 09/24/19 09/24/19 09/24/19 09/24/19 07:00 08:00 09:40 09:41 Temp 98.5 98.5 Pulse 83 83 83 Resp 18 B/P (MAP) 181/78 (112) 181/78 181/78 Pulse Ox 92 O2 Delivery Room Air Room Air Intake and Output0 09/23/19 09/23/19 09/24/19 14:59 22:59 06:59 Intake Total 500 ml 1750 ml 200 ml Output Total 650 ml Balance 500 ml 1750 ml -450 ml THERESA MARTINEZ MD Sep 24, 2019 11:17
--- NOTE | 2019-09-24 12:20 | PDOC3 ---
Discharge Summary Date of Admission: Sep 18, 2019 Date of Discharge: Sep 24, 2019 Follow-Up: 3-5 days Admitting Diagnosis comment: DISCHARGE DX acute Choledocholithiasis - admitted for Intractable abdominal pain - acute hepatitis S/p ERCP 09/19 Nausea and vomiting - possibly gastroenteritis, definitely with a mild pancreatitis and hepatitis 2/2 choledocholithiasis. Will give anti-emetics, pain control. Bowel rest. GI for ERCP NADIR - vasomotor nephropathy likely 2/2 vomiting and poor recent PO intake, will hydrate Hyperglycemia - likely reactive, will trend Acute transaminitis - as above, consult GI. NPO, trend LFTs. RUQ imaging via US confirms choledocholithiasis Leukocytosis - with tachycardia, she has SIRS, this is likely reactive given her recent vomiting, possibly also having a viral gastroenteritis, will trend. Will initiate antibiotics Non-obstructive left nephrolithiasis - S/p ERCP/sphincterotomy and cholecystectomy D/C PLANNING 36 MIN History of Present Illness History of Present Illness s/p basil pain better po intake imrpovd, complains of heartburn, will start tums post-op lap basil. improved appetite. Pain much better controlled with transition to dilaudid - some flatus [facility] Accession Number: [id number] . 01 Material submitted: . gallbladder - GALLBLADDER . 01 Clinical history: . Cholelithiasis . 02 Diagnosis: Gallbladder, laparoscopic cholecystectomy: - Cholelithiasis. - Active chronic follicular cholecystitis. . (RYANM:rahul; 09/23/2019) QMS 09/23/2019 1345 Local . 02 Comment: There is no evidence of malignancy. . 02 Plan: Dilaudid 1mg pRN Consult general surgery Vitals Vitals Vital Signs Date Time Temp Pulse Resp B/P (MAP) Pulse Ox O2 Delivery O2 Flow Rate FiO2 09/24/19 09:41 83 181/78 09/24/19 08:00 Room Air 09/24/19 07:00 98.5 18 92 98.5 Physical Exam General: Alert, Oriented X3, Cooperative Heart: Regular rate, Normal S1, Normal S2 Lungs: Clear Abdomen: Soft Extremities: No clubbing, No cyanosis Skin: No rashes, No breakdown FINAL DIAGNOSIS Problems Medical Problems: (1) Acute hepatitis Status: Acute (2) Acute kidney injury Status: Acute (3) Dehydration Status: Acute Brief Hospital Course Ms. Zapata is a 74 old [sex] who presented with [ ACUTE CHOLECYSTITIS] CONDITION AT DISCHARGE: Improved Discharge Medications Current Medications Fentanyl Citrate (Fentanyl 2ml Vial) 25 mcg PRN Q15MIN PRN IV PAIN GREATER THAN 3/10 Last administered on 09/18/19at 09:06; Start 09/18/19 at 08:45; Stop 09/18/19 at 15:21; Status DC Sodium Chloride 1,000 ml @ 1,000 mls/hr Q1H IV Last administered on 09/18/19at 09:05; Start 09/18/19 at 08:43; Stop 09/18/19 at 09:42; Status DC Ondansetron HCl (Zofran) 4 mg 1X ONCE IV Last administered on 09/18/19at 09:06; Start 09/18/19 at 08:45; Stop 09/18/19 at 08:46; Status DC Ondansetron HCl (Zofran) 4 mg 1X ONCE IV Last administered on 09/18/19at 1 2:34; Start 09/18/19 at 12:30; Stop 09/18/19 at 12:35; Status DC Ondansetron HCl (Zofran) 4 mg PRN Q8HRS PRN IV NAUSEA/VOMITING Last administered on 09/18/19at 15:48; Start 09/18/19 at 13:00; Stop 09/18/19 at 16:08; Status DC Sodium Chloride 1,000 ml @ 125 mls/hr Q8H IV Last administered on 09/19/19at 17:11; Start 09/18/19 at 12:47; Stop 09/19/19 at 12:46; Status DC Morphine Sulfate (Morphine Sulfate) 2 mg PRN Q4HRS PRN IV PAIN Last administered on 09/20/19at 06:26; Start 09/18/19 at 15:15; Stop 09/20/19 at 09:53; Status DC Ondansetron HCl (Zofran) 4 mg PRN Q6HRS PRN IV N/V, IF COMPAZINE INEFFECTIVE Last administered on 09/19/19at 05:04; Start 09/18/19 at 16:00 Metoprolol Tartrate (Lopressor) 50 mg BID PO Last administered on 09/24/19 09: 41; Start 09/18/19 at 21:00 Amlodipine Besylate (Norvasc) 2.5 mg DAILY PO Last administered on 09/24/19 09:40; Start 09/19/19 at 09:00 Enoxaparin Sodium (Lovenox 30mg Syringe) 30 mg Q24H SQ Last administered on 09/18/19at 16:38; Start 09/18/19 at 16:15; Stop 09/19/19 at 16:49; Status DC Ketorolac Tromethamine (Toradol 15mg Vial) 15 mg 1X ONCE IVP Last administered on 09/19/19at 09:45; Start 09/19/19 at 08:30; Stop 09/19/19 at 08:48; Status DC Prochlorperazine Edisylate (Compazine) 10 mg PRN Q6HRS PRN IV N/V, IF 5MG INEFFECTIVE Last administered on 09/19/19at 10:18; Start 09/19/19 at 10:15 Prochlorperazine Edisylate (Compazine) 5 mg PRN Q6HRS PRN IV MILD NAUSEA/VOMITING; Start 09/19/19 at 10:15 Ringer's Solution 1,000 ml @ 50 mls/hr Q20H IV Last administered on 09/23/19at 22:50; Start 09/19/19 at 13:30 Propofol 20 ml @ As Directed STK-MED ONCE IV ; Start 09/19/19 at 13:33; Stop 09/19/19 at 13:34; Status DC Lidocaine HCl (Lidocaine Pf 2% Vial) 5 ml STK-MED ONCE .ROUTE ; Start 09/19/19 at 13:33; Stop 09/19/19 at 13:34; Status DC Ondansetron HCl (Zofran) 4 mg STK-MED ONCE .ROUTE ; Start 09/19/19 at 13:33; Stop 09/19/19 at 13:34; Status DC Dexamethasone Sodium Phosphate (Decadron) 4 mg STK-MED ONCE .ROUTE ; Start 09/19/19 at 13:33; Stop 09/19/19 at 13:34; Status DC Succinylcholine Chloride (Anectine) 200 mg STK-MED ONCE .ROUTE ; Start 09/19/19 at 13:33; Stop 09/19/19 at 13:34; Status DC Sevoflurane (Ultane) 60 ml STK-MED ONCE IH ; Start 09/19/19 at 13:35; Stop 09/19/19 at 13:35; Status DC Iohexol (Omnipaque 300 Mg/ml) 100 ml STK-MED ONCE .ROUTE ; Start 09/19/19 at 14:41; Stop 09/19/19 at 14:41; Status DC Levofloxacin/ Dextrose 100 ml @ As Directed STK-MED ONCE IV ; Start 09/19/19 at 15:16; Stop 09/19/19 at 15:16; Status DC Levofloxacin/ Dextrose 100 ml @ 100 mls/hr 1X ONCE IV Last administered on 09/19/19at 15:18; Start 09/19/19 at 15:30; Stop 09/19/19 at 16:29; Status DC Levofloxacin/ Dextrose 100 ml @ 100 mls/hr Q24H IV ; Start 09/20/19 at 16:00; Stop 09/20/19 at 15:00; Status DC Iohexol (Omnipaque 300 Mg/ml) 50 ml STK-MED ONCE INT CAT Last administered on 09/19/19at 15:25; Start 09/19/19 at 15:25; Stop 09/19/19 at 16:34; Status DC Enoxaparin Sodium (Lovenox 40mg Syringe) 40 mg Q24H SQ ; Start 09/19/19 at 17: 00; Stop 09/21/19 at 15:38; Status DC Hydromorphone HCl (Dilaudid) 1 mg PRN Q2HR PRN IV SEVERE PAIN 7-10 Last administered on 09/21/19at 22:24; Start 09/20/19 at 10:00 Levofloxacin/ Dextrose 50 ml @ 50 mls/hr Q24H IV Last administered on 09/23/19at 20:39; Start 09/20/19 at 16:00; Stop 09/24/19 at 11:02; Status DC Ondansetron HCl (Zofran) 4 mg PRN Q6HRS PRN IV NAUSEA/VOMITING; Start 09/21/19 at 09:00; Stop 09/21/19 at 13:35; Status DC Fentanyl Citrate (Fentanyl 2ml Vial) 25 mcg PRN Q5MIN PRN IV MILD PAIN 1-3; Start 09/21/19 at 09:00; Stop 09/21/19 at 13:35; Status DC Fentanyl Citrate (Fentanyl 2ml Vial) 50 mcg PRN Q5MIN PRN IV MODERATE TO SEVERE PAIN; Start 09/21/19 at 09:00; Stop 09/21/19 at 13:35; Status DC Morphine Sulfate (Morphine Sulfate) 1 mg PRN Q10MIN PRN IV SEVERE PAIN 7-10; Start 09/21/19 at 09:00; Stop 09/21/19 at 13:35; Status DC Ringer's Solution 1,000 ml @ 30 mls/hr Q24H IV ; Start 09/21/19 at 08:55; Stop 09/21/19 at 13:35; Status DC Lidocaine HCl (Xylocaine-Mpf 1% 2ml Vial) 2 ml PRN 1X PRN ID PRIOR TO IV START; Start 09/21/19 at 09:00; Stop 09/21/19 at 13:35; Status DC Hydromorphone HCl (Dilaudid) 0.5 mg PRN Q10MIN PRN IV SEV PAIN, Second choice; Start 09/21/19 at 09:00; Stop 09/21/19 at 13:35; Status DC Prochlorperazine Edisylate (Compazine) 5 mg PACU PRN PRN IV NAUSEA, MRX1; Start 09/21/19 at 09:00; Stop 09/21/19 at 13:35; Status DC Iohexol (Omnipaque 300 Mg/ml) 50 ml STK-MED ONCE .ROUTE Last administered on 09/21/19at 10:30; Start 09/21/19 at 09:14; Stop 09/21/19 at 09:14; Status DC Cellulose (Surgicel Hemostat 4x8) 1 each STK-MED ONCE .ROUTE ; Start 09/21/19 at 09:14; Stop 09/21/19 at 09:15; Status DC Bupivacaine HCl (Sensorcaine Mpf 0.5%) 30 ml STK-MED ONCE .ROUTE Last administered on 09/21/19at 10:30; Start 09/21/19 at 09:14; Stop 09/21/19 at 09:15; Status DC Ondansetron HCl (Zofran) 4 mg STK-MED ONCE .ROUTE ; Start 09/21/19 at 09:18; Stop 09/21/19 at 09:19; Status DC Propofol 20 ml @ As Directed STK-MED ONCE IV ; Start 09/21/19 at 09:18; Stop 09/21/19 at 09:19; Status DC Lidocaine HCl (Lidocaine Pf 2% Vial) 5 ml STK-MED ONCE .ROUTE ; Start 09/21/19 at 09:18; Stop 09/21/19 at 09:19; Status DC Dexamethasone Sodium Phosphate (Decadron) 4 mg STK-MED ONCE .ROUTE ; Start 09/21/19 at 09:18; Stop 09/21/19 at 09:19; Status DC Fentanyl Citrate (Fentanyl 2ml Vial) 100 mcg STK-MED ONCE .ROUTE ; Start 09/21/19 at 09:18; Stop 09/21/19 at 09:19; Status DC Succinylcholine Chloride (Anectine) 200 mg STK-MED ONCE .ROUTE ; Start 09/21/19 at 09:18; Stop 09/21/19 at 09:19; Status DC Rocuronium [place] (Zemuron) 50 mg STK-MED ONCE .ROUTE ; Start 09/21/19 at 09:19; Stop 09/21/19 at 09:19; Status DC Cefazolin Sodium 100 ml @ As Directed STK-MED ONCE IV ; Start 09/21/19 at 10:07; Stop 09/21/19 at 10:07; Status DC Methylene Blue (Provayblue) 10 ml STK-MED ONCE .ROUTE ; Start 09/21/19 at 10:38; Stop 09/21/19 at 10:39; Status DC Glycopyrrolate (Robinul) 1 mg STK-MED ONCE .ROUTE ; Start 09/21/19 at 11:08; Stop 09/21/19 at 11:08; Status DC Neostigmine Methylsulfate (Neostigmine Methylsulfate) 5 mg STK-MED ONCE .ROUTE ; Start 09/21/19 at 11:08; Stop 09/21/19 at 11:08; Status DC Sevoflurane (Ultane) 60 ml STK-MED ONCE IH ; Start 09/21/19 at 11:28; Stop 09/21/19 at 11:28; Status DC Cefazolin Sodium/ Dextrose 50 ml @ 100 mls/hr 1X PREOP PRN IV preop Last administered on 09/21/19at 10:09; Start 09/21/19 at 12:00; Stop 09/22/19 at 11:59; Status DC Labetalol HCl (Normodyne Iv Push) 10 mg PRN Q10MIN PRN IVP HYPERTENSION SBP>160 Last administered on 09/21/19at 11:55; Start 09/21/19 at 12:00 Labetalol HCl (Normodyne Iv Push) 20 mg 1X ONCE IVP ; Start 09/21/19 at 12:00; Stop 09/21/19 at 12:01; Status DC Enoxaparin Sodium (Lovenox 40mg Syringe) 40 mg Q24H SQ Last administered on 09/23/19at 20:39; Start 09/21/19 at 21:00 Oxycodone HCl (Roxicodone) 5 mg PRN Q6HRS PRN PO SEVERE PAIN 7-10 Last administered on 09/23/19at 14:04; Start 09/21/19 at 16:30 Docusate Sodium (Colace) 100 mg BID PO Last administered on 09/24/19at 09:41; Start 09/21/19 at 21:00 Polyethylene Glycol (miraLAX PACKET) 17 gm HS PO Last administered on 09/22/19at 20:34; Start 09/21/19 at 21:00 Psyllium Hydrophilic Mucilloid (Metamucil Fiber Packet) 1 pkt HS PO Last administered on 09/23/19at 20:39; Start 09/21/19 at 21:00 Magnesium Hydroxide (Milk Of Magnesia) 2,400 mg PRN DAILY PRN PO CONSTIPATION 1ST CHOICE; Start 09/21/19 at 16:30 Ephedrine Sulfate (ePHEDrine PF IN SALINE SYRINGE) 50 mg STK-MED ONCE IV ; Start 09/20/19 at 12:00; Stop 09/22/19 at 08:58; Status DC Calcium Carbonate/ Glycine (Tums) 500 mg PRN AFTMEALHC PRN PO INDIGESTION 1ST CHOICE Last administered on 09/22/19at 20:34; Start 09/22/19 at 13:00 Famotidine (Pepcid) 20 mg QHS PO Last administered on 09/23/19at 20:37; Start 09/22/19 at 21:00 Lactobacillus Rhamnosus (Culturelle) 1 cap BID PO Last administered on 09/24/19at 09:41; Start 09/22/19 at 21:00 Potassium Chloride/Water 50 ml @ 50 mls/hr Q1H IV ; Start 09/23/19 at 16:00; Stop 09/23/19 at 17:59; Status UNV Potassium Chloride/Water 100 ml @ 100 mls/hr Q1H IV Last administered on 09/23/19at 22:46; Start 09/23/19 at 16:15; Stop 09/23/19 at 20:14; Status DC Levofloxacin (Levaquin) 250 mg Q24H PO ; Start 09/24/19 at 16:00 Active Scripts Active Reported Hydrochlorothiazide Tablet (Hydrochlorothiazide) 12.5 Mg Tablet 12.5 Mg PO DAILY Amlodipine Besylate 2.5 Mg Tablet 2.5 Mg PO DAILY Last dose given: 9:00 a.m. Next dose due: 12-19-14 9:00 a.m. Lisinopril 20 Mg Tablet 40 Mg PO DAILY06 Last dose given: 9:00 a.m. Next dose due: 12-19-14 Metoprolol Tartrate 50 Mg Tablet 50 Mg PO BID Last dose given: 9:00 a.m. Next dose due: tonight Vital Signs Vital Signs Date Time Temp Pulse Resp B/P (MAP) Pulse Ox O2 Delivery O2 Flow Rate FiO2 09/24/19 11:00 98.2 68 16 157/78 (104) 94 Room Air 98.2 Labs Laboratory Tests Test 09/23/19 04:02 White Blood Count 11.6 x10^3/uL (4.0-11.0) Red Blood Count 3.50 x10^6/uL (3.50-5.40) Hemoglobin 10.5 g/dL (12.0-15.5) Hematocrit 32.0 % (36.0-47.0) Mean Corpuscular Volume 91 fL (79-100) Mean Corpuscular Hemoglobin 30 pg (25-35) Mean Corpuscular Hemoglobin Concent 33 g/dL (31-37) Red Cell Distribution Width 13.5 % (11.5-14.5) Platelet Count 303 x10^3/uL (140-400) Neutrophils (%) (Auto) 79 % (31-73) Lymphocytes (%) (Auto) 14 % (24-48) Monocytes (%) (Auto) 7 % (0-9) Eosinophils (%) (Auto) 1 % (0-3) Basophils (%) (Auto) 0 % (0-3) Neutrophils # (Auto) 9.2 x10^3/uL (1.8-7.7) Lymphocytes # (Auto) 1.6 x10^3/uL (1.0-4.8) Monocytes # (Auto) 0.8 x10^3/uL (0.0-1.1) Eosinophils # (Auto) 0.1 x10^3/uL (0.0-0.7) Basophils # (Auto) 0.0 x10^3/uL (0.0-0.2) Sodium Level 144 mmol/L (136-145) Potassium Level 3.3 mmol/L (3.5-5.1) Chloride Level 107 mmol/L (98-107) Carbon Dioxide Level 28 mmol/L (21-32) Anion Gap 9 (6-14) Blood Urea Nitrogen 20 mg/dL (7-20) Creatinine 1.1 mg/dL (0.6-1.0) Estimated GFR (Cockcroft-Gault) 48.7 BUN/Creatinine Ratio 18 (6-20) Glucose Level 94 mg/dL (70-99) Calcium Level 8.6 mg/dL (8.5-10.1) Total Bilirubin 0.8 mg/dL (0.2-1.0) Aspartate Amino Transf (AST/SGOT) 26 U/L (15-37) Alanine Aminotransferase (ALT/SGPT) 111 U/L (14-59) Alkaline Phosphatase 192 U/L (46-116) Total Protein 5.9 g/dL (6.4-8.2) Albumin 2.0 g/dL (3.4-5.0) Albumin/Globulin Ratio 0.5 (1.0-1.7) Allergies Allergies Coded Allergies Type Severity Reaction Last Updated Verified nickel Allergy Intermediate REDNESS AND SWELLING, METAL 09/19/19 Yes acetaminophen Adverse Reaction Intermediate NAUSEA AND VOMITING 09/19/19 Yes hydrocodone Adverse Reaction Mild NAUSEA AND VOMITING 09/19/19 Yes Disposition/Orders: D/C to Home Patient Instructions SEE SURGERY 1-2 WEEKS THERESA MARTINEZ MD Sep 24, 2019 12:20
[2019-09-24] MEDS ORDERED: OXYC5TAB4 PO (12:23)
[2019-09-24] MEDS ORDERED: LACT1CAP19 PO (12:23)
[2019-09-24] MEDS ORDERED: DOCU-153 PO (12:23)
[2019-09-24] MEDS ORDERED: LEVO250T7 PO (12:23)
[2019-09-24] MEDS ORDERED: FAMO20TA5 PO (12:23)
--- NOTE | 2019-09-24 12:25 | DISCH ---
DISCHARGE INSTRUCTIONS Condition on Discharge Condition on Discharge: Stable Activity After Discharge Activity Instructions for Disc: Activity as tolerated Bathing Instructions: Shower-keep dressing dry, No Tub Bath until see Lifting Instructions after Dis: No heavy lifting, No pulling or pushing Exercise Instruction after Dis: Exercise per therapy Driving Instructions after Dis: Do not drive Weight Bearing Status after Di: No restrictions, Full weight bearing, As tolerated Diet after Discharge Diet after Discharge: Regular Diet Texture: Regular Liquid Texture: Thin Liquid Wound Incision Care Wound/Incision Care: Ice to area for comfort, Keep wound/cast CDI, Keep wound elevated, Do not change dressing Checks after Discharge Checks after discharge: Check blood press - daily Contacting the DRTrixie after DC Call your doctor for: If your condition worsens Treatment/Equipment after DC Adaptive Equipment Issued: Front wheeled THERESA Membreno MD Sep 24, 2019 12:25
[2019-09-24] MEDS ORDERED: POTASSIUM CHLORIDE 20 MEQ TABLET.ER. PO ONE (13:00)
--- NOTE | 2019-09-24 13:17 | PDOC ---
Subjective: Subjective: Feels better, would like to go home, no pain. Fills up quickly after eating - "toma annoying." Objective: Objective: No concerns per nurse. Vital Signs: Vital Signs Date Time Temp Pulse Resp B/P (MAP) Pulse Ox O2 Delivery O2 Flow Rate FiO2 09/24/19 11:00 98.2 68 16 157/78 (104) 94 Room Air 98.2 PE: GEN: NAD LUNGS: CTAB HEART: RRR ABD: NABS, S/ND/NT NEURO/PSYCH: A & O 3 A/P: S/p ERCP/sphincterotomy and cholecystectomy Elevated LFTs - improving (checked yesterday) UTI - Beta hemolytic Streptococcus -- Dc per primary/surgery. DAVY DELONG Sep 24, 2019 13:17
--- NOTE | 2019-09-24 13:48 | NUR ---
RYAN drain removed from RUQ, 2 stitches cut for removal. pt tolerated well. Sister in room to take patient home. IV removed cath intact. scripts given for Oxy IR and Zofran. other scripts sent to [facility] [place]. pt educated on incision care, v/u. pt stable upon dc.
== END 2019-09-24 14:00 | disposition home or self-care (01) | DRG 417 ==
LOC: ER 08:12 → 5 SOUTH 13:02
PROVIDERS: ADMIT Internal Medicine; ATTEND Internal Medicine
PROC: 0FC98ZZ Extirpation of Matter from Common Bile Duct, Via Natural or Artificial Opening Endoscopic (ICD-10-PCS; 2019-09-19)
PROC: 0TJB8ZZ Inspection of Bladder, Via Natural or Artificial Opening Endoscopic (ICD-10-PCS; principal; 2019-09-19 13:30)
PROC: 0FT44ZZ Resection of Gallbladder, Percutaneous Endoscopic Approach (ICD-10-PCS; 2019-09-21)
PROC: BF101ZZ Fluoroscopy of Bile Ducts using Low Osmolar Contrast (ICD-10-PCS; 2019-09-21)
DX: K80.62 Calculus of gallbladder and bile duct with acute cholecystitis without obstruction (principal); N17.0 Acute kidney failure with tubular necrosis; K85.90 Acute pancreatitis without necrosis or infection, unspecified; B17.9 Acute viral hepatitis, unspecified; N39.0 Urinary tract infection, site not specified; A08.4 Viral intestinal infection, unspecified; R73.9 Hyperglycemia, unspecified; D64.9 Anemia, unspecified; E86.0 Dehydration; Z96.653 Presence of artificial knee joint, bilateral; I10 Essential (primary) hypertension; K44.9 Diaphragmatic hernia without obstruction or gangrene; K57.30 Diverticulosis of large intestine without perforation or abscess without bleeding; N20.0 Calculus of kidney; Z82.49 Family history of ischemic heart disease and other diseases of the circulatory system; Z88.8 Allergy status to other drugs, medicaments and biological substances
CPT/HCPCS: 36415; 74176; 74300; 74328; 76705; 80053; 81001; 82150; 82728; 83690; 84443; 84484; 85007; 85025; 86038; 86255; 86705; 86709; 86803; 87086; 87340; 88304; 96374; 96376; A7015; C1726; J0171; J0330; J0690; J0696; J0780; J1100; J1170; J1650; J1885; J1956; J2001; J2270; J2405; J2704; J2710; J3010; J3480; J3490; J7030; J7120; Q9967; 99285-25; G0378

== ENCOUNTER 2021-07-14 08:24 | Emergency (ER) | payer MEDICARE ==
[~2021-07-14] VITALS: Ht 154.9 cm; Wt 78.2 kg
[~2021-07-14 08:24] MED LIST changes: +DOCU-148 PO; +FAMO20TA5 PO; +HYDR12.58 PO; +LACT1CAP19 PO; +LEVO250T7 PO; -LISI-334 PO; +LISI20TA18 PO; +OXYC5TAB4 PO; -WARF-78 PO; +WARF5TAB2 PO
--- NOTE | 2021-07-14 08:50 | ED.ADGEN ---
Past Medical History Past Medical History: Hypertension Past Surgical History: Appendectomy, Cholecystectomy, Knee Replacement Additional Past Surgical Histo: R knee replacement Smoking Status: Never Smoker Alcohol Use: None Drug Use: None General Adult EDM: Chief Complaint: FLANK PAIN HPI: HPI: Patient is a 75-year-old female who arrives ambulatory to the emergency departm ent complaining of abdominal pain over the past several days. Patient reports she developed epigastric to mid abdominal pain on Sunday last week. Patient states gradually over the course of the past several days her pain is moved into the region of the left side of her abdomen anterior to the left flank. Patient describes a rumbling sensation of her stomach. Patient states she has had nausea during this time as well however she has not vomited. Patient went to an urgent care clinic on Sunday and was given laxatives. Patient states she had multiple bowel movement since that time however she is not had any resolution of her pain. Patient states despite having pain, she is not had any fevers. She further states prior to taking the laxative she was not having any diarrhea as she has loose stools none. She further denies any history of chest pain or shortness of air and states her urinary habits are unchanged. She is awake, alert and nontoxic-appearing. Review of Systems: Review of Systems: Constitutional: Denies fever or chills. [] Eyes: Denies change in visual acuity. [] HENT: Denies nasal congestion or sore throat. [] Respiratory: Denies cough or shortness of breath. [] Cardiovascular: Denies chest pain or edema. [] GI: Reports nausea with abdominal pain. Denies vomiting, bloody stools or diarrhea. [] : Denies dysuria. [] Musculoskeletal: Denies back pain or joint pain. [] Integument: Denies rash. [] Neurologic: Denies headache, focal weakness or sensory changes. [] Endocrine: Denies polyuria or polydipsia. [] Lymphatic: Denies swollen glands. [] Psychiatric: Denies depression or anxiety. [] Allergies: Allergies: Allergies Coded Allergies Type Severity Reaction Last Updated Verified nickel Allergy Intermediate REDNESS AND SWELLING, METAL 09/19/19 Yes acetaminophen Adverse Reaction Intermediate NAUSEA AND VOMITING 09/19/19 Yes hydrocodone Adverse Reaction Mild NAUSEA AND VOMITING 09/19/19 Yes Physical Exam: PE: Constitutional: Well developed, well nourished, no acute distress, non-toxic appearance. [] HENT: Normocephalic, atraumatic, bilateral external ears normal, oropharynx moist, no oral exudates, nose normal. [] Eyes: PERRLA, EOMI, conjunctiva normal, no discharge. [] Neck: Normal range of motion, no tenderness, supple, no stridor. [] Cardiovascular:Heart rate regular rhythm, no murmur [] Lungs & Thorax: Bilateral breath sounds clear to auscultation [] Abdomen: Minimal tenderness palpation of the left side of the abdomen. Bowel sounds normal, soft, no masses, no pulsatile masses. [] Skin: Warm, dry, no erythema, no rash. [] Back: No tenderness, no CVA tenderness. [] Extremities: No tenderness, no cyanosis, no clubbing, ROM intact, no edema. [] Neurologic: Alert and oriented X 3, normal motor function, normal sensory function, no focal deficits noted. [] Psychologic: Affect normal, judgement normal, mood normal. [] Current Patient Data: Labs: Laboratory Tests Test 07/14/21 09:05 07/14/21 09:35 White Blood Count 14.7 x10^3/uL (4.0-11.0) H Red Blood Count 4.18 x10^6/uL (3.50-5.40) Hemoglobin 12.7 g/dL (12.0-15.5) Hematocrit 37.8 % (36.0-47.0) Mean Corpuscular Volume 91 fL (79-100) Mean Corpuscular Hemoglobin 31 pg (25-35) Mean Corpuscular Hemoglobin Concent 34 g/dL (31-37) Red Cell Distribution Width 12.7 % (11.5-14.5) Platelet Count 353 x10^3/uL (140-400) Neutrophils (%) (Auto) 84 % (31-73) H Lymphocytes (%) (Auto) 7 % (24-48) L Monocytes (%) (Auto) 9 % (0-9) Eosinophils (%) (Auto) 0 % (0-3) Basophils (%) (Auto) 0 % (0-3) Neutrophils # (Auto) 12.3 x10^3/uL (1.8-7.7) H Lymphocytes # (Auto) 1.1 x10^3/uL (1.0-4.8) Monocytes # (Auto) 1.2 x10^3/uL (0.0-1.1) H Eosinophils # (Auto) 0.0 x10^3/uL (0.0-0.7) Basophils # (Auto) 0.1 x10^3/uL (0.0-0.2) Sodium Level 135 mmol/L (136-145) L Potassium Level 3.6 mmol/L (3.5-5.1) Chloride Level 98 mmol/L (98-107) Carbon Dioxide Level 28 mmol/L (21-32) Anion Gap 9 (6-14) Blood Urea Nitrogen 25 mg/dL (7-20) H Creatinine 1.7 mg/dL (0.6-1.0) H Estimated GFR (Cockcroft-Gault) 29.4 BUN/Creatinine Ratio 15 (6-20) Glucose Level 105 mg/dL (70-99) H Calcium Level 9.0 mg/dL (8.5-10.1) Total Bilirubin 0.5 mg/dL (0.2-1.0) Aspartate Amino Transferase (AST) 16 U/L (15-37) Alanine Aminotransferase (ALT) 20 U/L (14-59) Alkaline Phosphatase 122 U/L (46-116) H Troponin I Quantitative < 0.017 ng/mL (0.000-0.055) Total Protein 7.0 g/dL (6.4-8.2) Albumin 2.8 g/dL (3.4-5.0) L Albumin/Globulin Ratio 0.7 (1.0-1.7) L Lipase 84 U/L (73-393) Urine Collection Type Unknown Urine Color Yellow Urine Clarity Cloudy Urine pH 5.5 (<5.0-8.0) Urine Specific [place] 1.020 (1.000-1.030) Urine Protein 30 mg/dL (NEG-TRACE) Urine Glucose (UA) Negative mg/dL (NEG) Urine Ketones (Stick) Trace mg/dL (NEG) Urine Blood Large (NEG) Urine Nitrite Negative (NEG) Urine Bilirubin Small (NEG) Urine Urobilinogen Dipstick 0.2 mg/dL (0.2 mg/dL) Urine Leukocyte Esterase Negative (NEG) Urine RBC 6-10 /HPF (0-2) Urine WBC 1-4 /HPF (0-4) Urine Squamous Epithelial Cells Few /LPF Urine Bacteria Few /HPF (0-FEW) Urine Hyaline Casts Few /HPF Laboratory Tests 07/14/21 09:05 Laboratory Tests 07/14/21 09:05 Vital Signs: Vital Signs Date Time Temp Pulse Resp B/P (MAP) Pulse Ox O2 Delivery O2 Flow Rate FiO2 07/14/21 09:30 72 20 157/76 (103) 95 Room Air 07/14/21 08:38 98.5 98.5 EKG: EKG: [] Heart Score: C/O Chest Pain: No Risk Factors: Risk Factors: DM, Current or recent (<one month) smoker, HTN, HLP, family history of CAD, obesity. Risk Scores: Score 0 - 3: 2.5% MACE over next 6 weeks - Discharge Home Score 4 - 6: 20.3% MACE over next 6 weeks - Admit for Clinical Observation Score 7 - 10: 72.7% MACE over next 6 weeks - Early Invasive Strategies Radiology/Procedures: Radiology/Procedures: [] Impression: [facility] [address] [place] [address] IMAGING REPORT Signed PATIENT: LUCAS SEAY ACCOUNT: [id number] : 1945 LOCATION: ER AGE: 75 SEX: F EXAM STATUS: REG ER ORD. PHYSICIAN: GEO LITTLE DO REASON: Left-sided abdominal pain/ hx appy, basil PROCEDURE: CT ABDOMEN PELVIS WO CONTRAST PQRS Compliance Statement: One or more of the following individualized dose reduction techniques were utilized for this examination: 1. Automated exposure control 2. Adjustment of the mA and/or kV according to patient size 3. Use of iterative reconstruction technique CT abdomen/pelvis without contrast 07/14/2021 9:43 AM INDICATION: Left-sided abdominal pain. COMPARISON: CT abdomen and pelvis 09/10/2019 TECHNIQUE: Multiple axial CT images of the abdomen and pelvis were obtained without intravenous contrast. Coronal and sagittal reformats are provided. FINDINGS: There is subsegmental atelectasis at the left lung base. Moderate size hiatal hernia. Heart size within normal limits. Evaluation of solid abdominal viscera is limited by lack of intravenous contrast. Liver, spleen, adrenal glands, and pancreas are normal in appearance. Gallbladder surgically absent. Abdominal aorta is tortuous, normal in caliber with mild/moderate calcified atheromatous plaque. No pathologically enlarged lymph nodes are identified in abdomen and pelvis. Trace pelvic free fluid is noted. There is a 6 mm nonobstructing calculus in inferior pole left kidney. Layering dependent calculi in the posterior inferior pole left kidney measure up to 3 mm. Bilateral renal parapelvic cysts are identified. There is moderate left hydroureteronephrosis with a 7 mm calculus identified within the distal left ureter, proximal to the ureterovesicular junction. Urinary bladder is within normal limits given degree of distention. No calculus identified within the rig ht kidney. Minimal hazy attenuation within the root of small bowel mesentery appears stable dating back to 09/10/2019. No new or enlarging mesenteric lymph nodes. No suspicious pelvic mass. No significant osseous abnormality is identified. No bowel obstruction or inflammation. Appendix is surgically absent. IMPRESSION: 1. There is a 7 mm calculus in the distal left ureter with moderate left hydr oureteronephrosis. Additional nonobstructing calculi identified within the left kidney measuring up to 6 mm. 2. Hazy attenuation within the root of small bowel mesentery with nonenlarged mesenteric lymph nodes appear stable dating back to 09/10/2019, nonspecific. Mesenteric adenitis could have similar appearance. 3. Trace pelvic free fluid. Electronically signed by: Stephani Hickey MD (07/14/2021 10:13 AM) [id number] DICTATED and SIGNED BY: STEPHANI HICKEY MD DATE: 07/14/21 [id number] 0 Course & Med Decision Making: Course & Med Decision Making Pertinent Labs and Imaging studies reviewed. (See chart for details) the patient remains awake, alert and in no acute distress. Patient does have a large kidney stone at the distal ureter of the left side. This measures 7 mm in diameter. Given this finding the patient's pain, I have elected to transfer the patient to . She has been accepted by Dr. Marie who is on-call for urology. The patient understands the need for transfer and has agreed to this. I did offer ambulance transport however the patient has elected to go by private vehicle. 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 Moreover the patient has not had any pain medication or any altering substances that may make her drive difficult. I have encouraged her to dial 911 should she have any problems between here and [facility]. She understands that she will use 911 as needed. She is nontoxic-appearing and awaiting transfer [] Lauren Disclaimer: Lauren Disclaimer: This electronic medical record was generated, in whole or in part, using a voice recognition dictation system. Departure Departure Impression: Primary Impression: Ureterolithiasis Additional Impressions: Hydronephrosis Renal insufficiency Disposition: 30 STILL A PATIENT Condition: STABLE Referrals: BERNIE TALAVERA MD (PCP) Problem Qualifiers GEO LITTLE DO Jul 14, 2021 08:50
[2021-07-14 09:24] LABS: BASO # 0.1 x10^3/uL (0.0-0.2); BASO % 0 % (0-3); EOS % 0 % (0-3); HEMATOCRIT 37.8 % (36.0-47.0); HEMOGLOBIN 12.7 g/dL (12.0-15.5); LYMPH # 1.1 x10^3/uL (1.0-4.8); LYMPH % 7 % (24-48); MEAN CORPUSCULAR HEMOGLOBIN 31 pg (25-35); MEAN CORPUSCULAR HGB CONC 34 g/dL (31-37); MEAN CORPUSCULAR VOLUME 91 fL (79-100); MONO # 1.2 x10^3/uL (0.0-1.1); MONO % 9 % (0-9); NEUT # 12.3 x10^3/uL (1.8-7.7); NEUT % 84 % (31-73); PLATELET COUNT 353 x10^3/uL (140-400); RED BLOOD COUNT 4.18 x10^6/uL (3.50-5.40); RED CELL DISTRIBUTION WIDTH 12.7 % (11.5-14.5); WHITE BLOOD COUNT 14.7 x10^3/uL (4.0-11.0)
[2021-07-14 09:33] LABS: CREATININE 1.7 mg/dL (0.6-1.0); GFR 29.4; POTASSIUM 3.6 mmol/L (3.5-5.1)
[2021-07-14 09:40] LABS: ALBUMIN 2.8 g/dL (3.4-5.0); ALBUMIN/GLOBULIN RATIO 0.7 (1.0-1.7); TOTAL BILIRUBIN 0.5 mg/dL (0.2-1.0)
[2021-07-14 09:45] LABS: BILIRUBIN,URINE SMALL (NEG); CLARITY,URINE CLOUDY; COLOR,URINE YELLOW; NITRITE,URINE NEGATIVE (NEG); PH,URINE 5.5 (<5.0-8.0); PROTEIN,URINE 30 mg/dL (NEG-TRACE); UROBILINOGEN,URINE 0.2 mg/dL (0.2 mg/dL)
[2021-07-14 09:53] LABS: BACTERIA,URINE FEW /HPF (0-FEW); HYALINE CASTS, URINE FEW /HPF
--- NOTE | 2021-07-14 10:15 | RAD ---
PQRS Compliance Statement: One or more of the following individualized dose reduction techniques were utilized for this examinat ion: 1. Automated exposure control 2. Adjustment of the mA and/or kV according to patient size 3. Use of iterative reconstruction technique CT abdomen/pelvis without contrast 07/14/2021 9:43 AM INDICATION: Left-sided abdominal pain. COMPARISON: CT abdomen and pelvis 09/10/2019 TECHNIQUE: Multiple axial CT images of the abdomen and pelvis were obtained without intravenous contr ast. Coronal and sagittal reformats are provided. FINDINGS: There is subsegmental atelectasis at the left lung base. Moderate size hiatal hernia. Heart size with in normal limits. Evaluation of solid abdominal viscera is limited by lack of intravenous contrast. L iver, spleen, adrenal glands, and pancreas are normal in appearance. Gallbladder surgically absent. A bdominal aorta is tortuous, normal in caliber with mild/moderate calcified atheromatous plaque. No pa thologically enlarged lymph nodes are identified in abdomen and pelvis. Trace pelvic free fluid is no francisco. There is a 6 mm nonobstructing calculus in inferior pole left kidney. Layering dependent calculi in t he posterior inferior pole left kidney measure up to 3 mm. Bilateral renal parapelvic cysts are ident ified. There is moderate left hydroureteronephrosis with a 7 mm calculus identified within the distal left ureter, proximal to the ureterovesicular junction. Urinary bladder is within normal limits give n degree of distention. No calculus identified within the right kidney. Minimal hazy attenuation with in the root of small bowel mesentery appears stable dating back to 09/10/2019. No new or enlarging me senteric lymph nodes. No suspicious pelvic mass. No significant osseous abnormality is identified. No bowel obstruction or inflammation. Appendix is surgically absent. IMPRESSION: 1. There is a 7 mm calculus in the distal left ureter with moderate left hydroureteronephrosis. Addit ional nonobstructing calculi identified within the left kidney measuring up to 6 mm. 2. Hazy attenuation within the root of small bowel mesentery with nonenlarged mesenteric lymph nodes appear stable dating back to 09/10/2019, nonspecific. Mesenteric adenitis could have similar appearan ce. 3. Trace pelvic free fluid. Electronically signed by: Lisset Bustos MD (07/14/2021 10:13 AM) [id number]
[2021-07-14] MEDS ORDERED: MORPHINE SULFATE 4 MG/ML INJ. IVP ONE (13:00)
[2021-07-14] MEDS ORDERED: ONDANSETRON PF 4 MG/2 ML VIAL. IVP ONE (13:00)
[2021-07-14] MEDS ORDERED: MORPHINE SULFATE 2 MG/ML INJ. IVP ONE (13:15)
[2021-07-14 14:33] VITALS: BP 165/79
== END 2021-07-14 15:02 | disposition short-term general hospital (02) ==
LOC: ER 08:24
DX: R10.13 Epigastric pain (principal); R11.0 Nausea; I10 Essential (primary) hypertension; Z90.89 Acquired absence of other organs; Z90.49 Acquired absence of other specified parts of digestive tract; Z88.5 Allergy status to narcotic agent; Z88.6 Allergy status to analgesic agent; Z88.8 Allergy status to other drugs, medicaments and biological substances
CPT/HCPCS: 36415; 74176; 80053; 81001; 83690; 84484; 85025; 87426; 96374; 96375; 99284; J2270; J2405

== ENCOUNTER 2021-12-27 14:29 | Emergency (ER) | payer MEDICARE ==
[~2021-12-27] VITALS: Ht 154.9 cm; Wt 79.0 kg
[~2021-12-27 14:29] MED LIST changes: -LEVO250T7 PO; +LEVO250T8 PO
[2021-12-27 14:52] VITALS: BP 196/89
--- NOTE | 2021-12-27 16:01 | RAD ---
EXAM: AP pelvis, AP and lateral view right hip DATE: 12/27/2021 3:26 PM INDICATION: Hip pain. COMPARISON: No Prior FINDINGS: No evidence of acute fracture or dislocation. Mild right hip joint and SI joint degenerative changes are seen. Degenerative changes lower lumbar spinal pressure profiled. IMPRESSION: No evidence of acute fracture or dislocation. Electronically signed by: Daljit Garcia MD (12/27/2021 3:58 PM) ROSS
[2021-12-27] MEDS ORDERED: METH4TAB2 PO (16:28)
--- NOTE | 2021-12-27 16:28 | PHYS DOC ---
Past Medical History Past Medical History: Hypertension Past Surgical History: Appendectomy, Cholecystectomy, Knee Replacement Additional Past Surgical Histo: R knee replacement Smoking Status: Never Smoker Alcohol Use: None Drug Use: None General Adult EDM: Chief Complaint: HIP PAIN HPI: HPI: Patient is a 76 year old female who presents to the ED today complaining of 8 out of 10 sharp intermittent right hip pain, symptoms of been going on for a while but today got worse at work. 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 She states getting in and out of the bus exacerbates the pain. She states sitting down relieves the pain. Patient denies any injuries Review of Systems: Review of Systems: Constitutional: Denies fever or chills. []] Musculoskeletal: Reports right hip pain Integument: Denies rash. [] Neurologic: Denies headache, focal weakness or sensory changes. [] [] Psychiatric: Denies depression or anxiety. [] Heart Score: C/O Chest Pain: N/A Risk Factors: Risk Factors: DM, Current or recent (<one month) smoker, HTN, HLP, family history of CAD, obesity. Risk Scores: Score 0 - 3: 2.5% MACE over next 6 weeks - Discharge Home Score 4 - 6: 20.3% MACE over next 6 weeks - Admit for Clinical Observation Score 7 - 10: 72.7% MACE over next 6 weeks - Early Invasive Strategies Allergies: Allergies: Allergies Coded Allergies Type Severity Reaction Last Updated Verified nickel Allergy Intermediate REDNESS AND SWELLING, METAL 09/19/19 Yes acetaminophen Adverse Reaction Intermediate NAUSEA AND VOMITING 09/19/19 Yes hydrocodone Adverse Reaction Mild NAUSEA AND VOMITING 09/19/19 Yes Physical Exam: PE: Constitutional: Well developed, well nourished, no acute distress, non-toxic appearance. [] Skin: Warm, dry, no erythema, no rash. [] Back: No tenderness, no CVA tenderness. [] Extremities: Right lower extremity with no obvious deformity. Tenderness on palpation of the right SI joint as well as right lateral hip joint. Full range of motion to the right hip. Adequate flexion and extension of the right lower extremity, adequate internal rotation and external rotation of the right hip. +2 right pedal pulse. Cap refill less than 2 seconds of right lower extremity. Sensation intact to the right lower extremity Neurologic: Alert and oriented X 3, normal motor function, normal sensory function, no focal deficits noted. [] Psychologic: Affect normal, judgement normal, mood normal. [] Current Patient Data: Vital Signs: Vital Signs Date Time Temp Pulse Resp B/P (MAP) Pulse Ox O2 Delivery O2 Flow Rate FiO2 12/27/21 14:52 98.1 61 16 196/89 (124) 98 Room Air 98.1 EKG: EKG: [] Radiology/Procedures: Radiology/Procedures: []PROCEDURE: HIP RIGHT 2V WITH PELVIS EXAM: AP pelvis, AP and lateral view right hip DATE: 12/27/2021 3:26 PM INDICATION: Hip pain. COMPARISON: No Prior FINDINGS: No evidence of acute fracture or dislocation. Mild right hip joint and SI joint degenerative changes are seen. Degenerative changes lower lumbar spinal pressure profiled. IMPRESSION: No evidence of acute fracture or dislocation. Electronically signed by: Daljit Garcia MD (12/27/2021 3:58 PM) [facility] DICTATED and SIGNED BY: DALJIT GARCIA MD DATE: 12/27/21 [id number] 0 Course & Med Decision Making: Course & Med Decision Making Pertinent Labs and Imaging studies reviewed. (See chart for details) This is 76-year-old female patient presented to the ED today with right hip pain, symptoms have been going on for a while but got worse today. No known injury. Right hip x-rays were negative for any acute findings, noted for DJD at the right hip as well as SI joint. Discharged with Medrol Dosepak. She is already on Aleve. She already has an orthopedic doctor she will follow-up with. Lauren Disclaimer: Lauren Disclaimer: This electronic medical record was generated, in whole or in part, using a voice recognition dictation system. Departure Departure Impression: Primary Impression: DJD (degenerative joint disease), lumbar Qualified Codes: M47.816 - Spondylosis without myelopathy or radiculopathy, lumbar region Additional Impressions: Arthritis of right hip Degenerative joint disease of right hip Qualified Codes: M16.11 - Unilateral primary osteoarthritis, right hip Disposition: HOME / SELF CARE / HOMELESS Condition: STABLE Referrals: BERNIE TALAVERA MD (PCP) RUBEN MUÑOZ MD follow up in one week Patient Instructions: Arthritis, Degenerative-Brief, Hip Pain Additional Instructions: You were evaluated in the emergency room for right hip pain and noted to have arthritis in your right hip and low back. Please follow-up with your orthopedic doctor in the next 7 days Scripts Methylprednisolone (MEDROL) 4 Mg Tab.ds.pk 1 PKG PO UD, #1 PKG Prov: LIDIA SIERRA APRN 12/27/21 LIDIA SIERRA APRN Dec 27, 2021 16:28
== END 2021-12-27 16:34 | disposition home or self-care (01) ==
LOC: ER 14:29
DX: M47.816 Spondylosis without myelopathy or radiculopathy, lumbar region (principal); M16.11 Unilateral primary osteoarthritis, right hip; I10 Essential (primary) hypertension; Z90.89 Acquired absence of other organs; Z90.49 Acquired absence of other specified parts of digestive tract; Z88.5 Allergy status to narcotic agent; Z88.6 Allergy status to analgesic agent
CPT/HCPCS: 73502; 99283